=== PATIENT | female | born 1995 | race Caucasian/White ===

== ENCOUNTER 2017-10-21 23:06 | Inpatient (IN) | payer MEDICAID ==
[2017-10-21] MEDS ORDERED: ONDANSETRON HCL INJ/PF 4 MG/2 ML SDV IV ONE (23:12)
--- NOTE | 2017-10-21 23:29 | ER Document Report ---
ED General - General Chief Complaint: High Blood Sugar Stated Complaint: BLOOD SUGAR PROBLEMS Time Seen by Provider: 10/21/17 23:09 Notes: Patient is a 22-year-old female with type 1 diabetes who presents with complaints of feeling bad for 1 week. She has been vomiting. She says she has been taken her insulin as prescribed but she still felt unwell and her sugars have been running very high for the last several days. She has been vomiting for last 48 hours. She has body aches throughout. She has not had fever. She denies any diarrhea. She has no other complaints at this time. She says she takes Lantus 20 units twice a day. She has not had her evening dose of Lantus. She also has a sliding scale. He does have history of abdominal surgery due to familiar adenomatous polyposis. She had a colectomy due to this. She denies any new abdominal complaints. - Related Data Allergies/Adverse Reactions: bupropion [From Wellbutrin] Allergy (Verified 10/22/17 01:37) diphenhydramine [From Benadryl] Allergy (Verified 10/22/17 01:37) ketorolac [From Toradol] Allergy (Verified 10/22/17 01:37) morphine Allergy (Verified 10/22/17 00:55) Penicillins Allergy (Verified 10/22/17 01:37) Past Medical History - Social History Smoking Status: Never Smoker Frequency of alcohol use: None Drug Abuse: None Family History: Reviewed & Not Pertinent Review of Systems - Review of Systems Notes: My Normal Review Basic REVIEW OF SYSTEMS: CONSTITUTIONAL : Denies fever, chills, or sweats. Denies recent illness. EENT: Denies eye, ear, throat, or mouth pain or symptoms. Denies nasal or sinus congestion. CARDIOVASCULAR: Denies chest pain. RESPIRATORY: Denies cough, cold, or chest congestion. Denies shortness of breath, difficulty breathing, or wheezing. GASTROINTESTINAL: Some diffuse mild abdominal pain. Some nausea or vomiting. GENITOURINARY: Denies difficulty urinating, painful urination, burning, frequency, or blood in urine. FEMALE GENITOURINARY: Denies vaginal bleeding, abnormal or irregular periods. MUSCULOSKELETAL: Body aches SKIN: Denies rash or skin lesions. NEUROLOGICAL: Denies altered mental status or loss of consciousness. Denies headache. Denies weakness or paralysis or loss of use of either side. Denies problems with gait or speech. Denies sensory or motor loss. ALL OTHER SYSTEMS REVIEWED AND NEGATIVE. Physical Exam - Vital signs Vitals: Temp Pulse Resp BP Pulse Ox 98.3 F 102 H 14 118/83 99 10/21/17 23:11 10/21/17 23:11 10/21/17 23:11 10/21/17 23:11 10/21/17 23:11 - Notes Notes: General Appearance: Well nourished, alert, cooperative, no acute distress, no obvious discomfort. Well-appearing. Vitals: reviewed, See vital signs table. Head: no swelling or tenderness to the head Eyes: PERRL, EOMI, Conjuctiva clear Mouth: Some decreasd moisture Throat: No tonsillar inflammation, Lungs: No wheezing, No rales, No rhonci, No accessory muscle use, good air exchange bilaterally. Heart: Rapid rate, Regular rythm, No murmur, no rub Abdomen: Normal BS, soft, No rigidity, No abdominal tenderness, No guarding, no rebound, no abdominal masses, no organomegaly Extremities: strength 5/5 in all extremities, good pulses in all extremities, no swelling or tenderness in the extremities, no edema. Skin: warm, dry, appropriate color, no rash Neuro: speech clear, oriented x 3, normal affect, responds appropriately to questions. Course - Re-evaluation Re-evalutation: 10/22/17 01:29 Nursing staff is able to get peripheral IV. I looked with ultrasound patient has no visible peripheral veins I can see on ultrasound on the upper extremities that would allow for an adequate IV cannulation. I talked to patient length and she admits that she has had several central lines because this. She also had IOS in the past. She does not want an IO. I did look at her left internal jugular vein. I did not actually see a internal jugular vein that I felt would be appropriate for cannulation. Patient's right internal jugular vein looked okay. I did attempt to cannulate this. I got good blood flash. On 2 times a try to pass the guidewire. Guidewire would not pass. I suspect the patient probably is a distal stricture from previous multiple central lines. I therefore placed central line in the left femoral vein. This was able to be cannulated on first attempt and guidewire was passed easily. I requested previous medical records from [facility]. 10/22/17 02:47 Patient is hyperglycemia with acidosis but no gap surgery with acidosis. Suggest that she just acutely had a rise in her blood sugar. She is started on insulin drip. She continues to ask for pain medication she has received fentanyl. I do have some concerns about potential opiate abuse due to the fact of her multiple pain medication allergies. Also, I have left her door open. When I walked past the room and looked in without her noticing me she seems very comfortable and is just lying there. When an ocular door and she is wearing coming in she starts shaking and saying that she has lots of pain. This is concerning to me that there may be some secondary gain to this as it seems that her blood sugar is some acute rise which suggests to me that she probably did not take her insulin despite her saying that she did. Also received records from [facility]. In those records it appears that at times she has had similar presentations where she will have a non-gap acidosis associated with hyperglycemia. In 1 of the notes mentions that the patient has been admitted there for proximately 10 times in the last year for DKA. The notes also mentioned that she is very noncompliant with her medications. At this time I do not think any further opiate medications are necessary. I did call and speak with Dr. Jones, hospitalist, about potential admission. He says that he prefers that we will we get a repeat BMP and call back with results to see if her acidosis and sugar improving being that she does not have a gap. She is receiving IV fluids. 10/22/17 05:40 Patient continues to complain of body aches. I ordered Tylenol for her but she refused it when the nurse went to give it to her. I am still waiting results of her repeat BMP. 10/22/17 06:11 Patient's acidosis is getting worked despite her blood sugar improving and her being on insulin drip. Her potassium was also started drop. I will switch over to D5 half-normal saline with 40 of KCl. I have called back and spoke with Dr. Jones who agrees to admit the patient. I reevaluated the patient again. She seems more comfortable now despite the fact that her acidosis is worsening. Informed her that should be done soon to evaluate her in writing admission orders. She is understanding of this and has no further concerns at this time. Dictation of this chart was performed using voice recognition software; therefore, there may be some unintended grammatical errors. 10/22/17 06:12 10/22/17 06:14 - Vital Signs Vital signs: Temp Pulse Resp BP Pulse Ox 98.3 F 102 H 14 111/69 100 10/21/17 23:11 10/21/17 23:11 10/22/17 02:01 10/22/17 02:00 10/22/17 02:01 - Laboratory Result Diagrams: 10/22/17 01:30 10/22/17 05:22 Laboratory results interpreted by me: 10/22/17 10/22/17 10/22/17 01:30 01:30 01:39 Hgb 11.2 L MCH 24.8 L MCHC 30.0 L RDW 20.9 H VBG pH VBG pCO2 VBG HCO3 Sodium 130.5 L Potassium Chloride 109 H Carbon Dioxide 11 L Glucose 800 H* POC Glucose AST 12 L Alkaline Phosphatase 132 H Total Protein 5.5 L Albumin 3.0 L Urine Glucose (UA) >=500 H Urine Ketones 20 H Urine Blood SMALL H 10/22/17 10/22/17 10/22/17 03:15 03:31 04:14 Hgb MCH MCHC RDW VBG pH 7.19 L* VBG pCO2 26.4 L VBG HCO3 9.9 L Sodium Potassium Chloride Carbon Dioxide Glucose POC Glucose 499 H* 398 H AST Alkaline Phosphatase Total Protein Albumin Urine Glucose (UA) Urine Ketones Urine Blood 10/22/17 05:22 Hgb MCH MCHC RDW VBG pH VBG pCO2 VBG HCO3 Sodium Potassium 3.2 L Chloride 117 H Carbon Dioxide 8 L* Glucose 246 H POC Glucose AST Alkaline Phosphatase Total Protein Albumin Urine Glucose (UA) Urine Ketones Urine Blood - EKG Interpretation by Me Additional EKG results interpreted by me: 10/22/17 01:33 EKG is reviewed and interpreted by me. EKG shows sinus tachycardia with rate of [address] segment elevation or depression. No ischemic T-wave inversions. MI interval, QRS duration, QTc intervals are within normal range. No old EKG available for comparison. Procedures - Central Line left femoral vein Consent obtained: Yes Central line pre-insertion: Sterile PPE donned, Chloraprep applied, Sterile drapes applied Central line lumen type: Triple Anesthetic type: 1% Lidocaine mL's of anesthesia: 5 Ultrasound guided: Yes Line secured with sutures: Yes Central line post-insertion: Blood return from lumens, Biopatch applied, Sutured , Sterile dressing applied Complications: No Discharge - Discharge Clinical Impression: DKA (diabetic ketoacidoses) Qualifiers: Diabetes mellitus type: type 1 Diabetes mellitus complication detail: without coma Qualified Code(s): E10.10 - Type 1 diabetes mellitus with ketoacidosis without coma Condition: Stable Disposition: ADMITTED INPATIENT Admitting Provider: Hospitalist Unit Admitted: IMCU Referrals: NAYANA TORRES NP [Primary Care Provider] - Follow up as needed
[2017-10-22 01:38] LABS: ABSOLUTE EOSINOPHILS # (AUTO) 0.1 10^3/uL (0.0-0.6); ABSOLUTE LYMPHOCYTES (AUTO) 1.2 10^3/uL (0.5-4.7); ABSOLUTE MONOCYTES (AUTO) 0.8 10^3/uL (0.1-1.4); BASOPHILS % (AUTO) 0.3 % (0-2); TOTAL CELLS COUNTED % (AUTO) 100 %
[2017-10-22] MEDS ORDERED: FENTANYL CITRATE INJ/PF 100 MCG/2 ML AMPUL IV ONE (01:41)
[2017-10-22 01:42] LABS: MEAN CORPUSCULAR VOLUME 83 fl (80-97)
[2017-10-22] MEDS ORDERED: GLUCAGON,HUMAN RECOMB 1 MG INJ IM PRN (01:43)
[2017-10-22] MEDS ORDERED: DEXTROSE 50%-WATER 25 GM/50 ML DISP.SYRIN IV PRN ×4 (01:43→06:35)
[2017-10-22] MEDS ORDERED: NORMAL SALINE 100 ML with INSULIN REGULAR, HUMAN 100 UNIT IV PRN ×4 (01:43→06:44)
[2017-10-22] MEDS ORDERED: DEXTROSE 40% GEL 15 GM TUBE PO PRN ×4 (01:43→06:35)
[2017-10-22] MEDS: NORMAL SALINE 1000 ML 1,000 ML IV PRN ×5 (01:49→22:13)
[2017-10-22 01:58] LABS: APPEARANCE,URINE CLEAR; BILIRUBIN,URINE NEGATIVE (NEGATIVE); COLOR,URINE COLORLESS; GLUCOSE, URINE >=500 mg/dL (NEGATIVE); KETONES,URINE 20 mg/dL (NEGATIVE); LEUKOCYTE ESTERASE,URINE NEGATIVE (NEGATIVE); NITRITE,URINE NEGATIVE (NEGATIVE); PROTEIN,URINE NEGATIVE (NEGATIVE); URINE SPECIFIC GRAVITY 1.028; UROBILINOGEN,URINE NEGATIVE mg/dL (<2.0)
[2017-10-22 01:58] LABS: HEMATOCRIT 37.3 % (36.0-47.0); HEMOGLOBIN 11.2 g/dL (12.0-15.5); WHITE BLOOD COUNT 9.3 10^3/uL (4.0-10.5)
[2017-10-22 01:59] LABS: ABSOLUTE NEUT (AUTO) 7.2 10^3/uL (1.7-8.2); EOSINOPHILS % (AUTO) 0.7 % (0-6); LYMPHOCYTES % (AUTO) 13.3 % (13-45); MEAN CORPUSCULAR HEMOGLOBIN 24.8 pg (27.0-33.4); MONOCYTES % (AUTO) 8.7 % (3-13); PLATELET COUNT 301 10^3/uL (150-450); RED CELL DISTRIBUTION WIDTH 20.9 % (11.5-14.0)
[2017-10-22 02:03] LABS: ALANINE AMINOTRANSFERASE 26 U/L (9-52); ALKALINE PHOSPHATASE 132 U/L (38-126); ANION GAP 11 (5-19); ASPARTATE AMINO TRANSFERASE 12 U/L (14-36); BILIRUBIN,DIRECT 0.3 mg/dL (0.0-0.4); BILIRUBIN,TOTAL 0.3 mg/dL (0.2-1.3); BLOOD UREA NITROGEN 10 mg/dL (7-20); CALCIUM 9.2 mg/dL (8.4-10.2); CARBON DIOXIDE 11 mmol/L (22-30); CHLORIDE 109 mmol/L (98-107); POTASSIUM 4.1 mmol/L (3.6-5.0); SODIUM 130.5 mmol/L (137-145); TOTAL PROTEIN 5.5 g/dL (6.3-8.2)
[2017-10-22] MEDS ORDERED: INSULIN REG, HUMAN 100 UNIT/ML 3 ML VIAL (PYX) ONE (02:31)
[2017-10-22 02:33] LABS: GLUCOSE 800 mg/dL (75-110)
[2017-10-22 03:38] LABS: VENOUS BLOOD BASE EXCESS -16.8 mmol/L; VENOUS BLOOD HCO3 9.9 mmol/L (20-32); VENOUS BLOOD PCO2 26.4 mmHg (35-63)
[2017-10-22 03:40] LABS: VENOUS BLOOD PH 7.19 (7.30-7.42)
[2017-10-22] MEDS ORDERED: RINGERS SOLUTION,LACTATED 1,000 ML IV ONE (04:44)
[2017-10-22] MEDS ORDERED: ACETAMINOPHEN 325 MG TABLET PO ONE (05:03)
[2017-10-22] MEDS ORDERED: ONDANSETRON HCL INJ/PF 4 MG/2 ML SDV IV ONE (05:40)
[2017-10-22 05:51] LABS: ANION GAP 17 (5-19); BLOOD UREA NITROGEN 7 mg/dL (7-20); CALCIUM 8.8 mg/dL (8.4-10.2); CHLORIDE 117 mmol/L (98-107); GLUCOSE 246 mg/dL (75-110); POTASSIUM 3.2 mmol/L (3.6-5.0); SODIUM 142.2 mmol/L (137-145)
[2017-10-22 06:03] LABS: CARBON DIOXIDE 8 mmol/L (22-30)
[2017-10-22] MEDS ORDERED: POTASSI CL 40 MEQ/D5-1/2NS 1L 40 MEQ/1,000 ML RTUINJ IV ONE (06:10)
[2017-10-22] MEDS ORDERED: POTASSIUM CHLORIDE 10 MEQ TABLET.SA PO ONE (06:17)
[2017-10-22] MEDS ORDERED: ACETAMINOPHEN 325 MG TABLET PO PRN (06:35)
[2017-10-22] MEDS ORDERED: GLUCAGON,HUMAN RECOMB 1 MG INJ SUBCUT PRN (06:35)
[2017-10-22] MEDS ORDERED: MAGNESIUM HYDROXIDE SUSP 30 ML UDCUP PO PRN (06:35)
[2017-10-22] MEDS ORDERED: POTASSI CL 20 MEQ/D5-1/2NS 1L 1,000 ML IV PRN (06:35)
[2017-10-22 07:30] LABS: PHOSPHORUS 1.6 mg/dL (2.5-4.5)
[2017-10-22 07:45] LABS: URINE AMPHETAMINES SCREEN NEGATIVE; URINE BARBITURATES SCREEN NEGATIVE; URINE BENZODIAZEPINES SCREEN NEGATIVE; URINE COCAINE SCREEN NEGATIVE; URINE MARIJUANA (THC) SCREEN NEGATIVE; URINE METHADONE SCREEN NEGATIVE; URINE PHENCYCLIDINE SCREEN NEGATIVE
--- NOTE | 2017-10-22 07:57 | PDOC H&P ---
History of Present Illness Admission Date/PCP: 10/22/17 06:22 NAYANA TORRES NP Patient complains of: Polyuria, polydipsia abdominal pain nausea History of Present Illness: RUMA HUITRON is a 22 year old female with a past medical history of type 1 diabetes, bipolar disorder, noncompliance and recurrent hospitalizations for DKA. Patient states recently discharged from [facility] following recovery from DKA, stating nausea has prevented p.o. intake and despite hyperglycemia has not taken insulin. In the emergency room she is found to have hyperglycemia of 800 and bicarb of 8. She started on IV insulin and fluids refer to the hospitalist for admission. Patient is known to the ER provider for the above. Patient has an angry affect. Past Medical History Cardiac Medical History: Reports: None Pulmonary Medical History: Reports: None EENT Medical History: Reports: None Endocrine Medical History: Reports: Diabetes Mellitus Type 1 Renal/ Medical History: Reports: None Malignancy Medical History: Reports: None GI Medical History: Reports: None Musculoskeltal Medical History: Reports: None Skin Medical History: Reports: None Psychiatric Medical History: Reports: Bipolar Disorder Traumatic Medical History: Reports: None Hematology: Reports: None Infectious Medical History: Reports: None Past Surgical History Past Surgical History: Reports: None Social History Information Source: Patient Lives with: Family Smoking Status: Never Smoker Frequency of Alcohol Use: None Hx Recreational Drug Use: No Drugs: None - Advance Directive Resuscitation Status: Full Code Family History Family History: Hypertension Parental Family History Reviewed: Yes Children Family History Reviewed: Yes Sibling(s) Family History Reviewed.: Yes Medication/Allergy Allergies/Adverse Reactions: bupropion [From Wellbutrin] Allergy (Verified 10/22/17 01:37) diphenhydramine [From Benadryl] Allergy (Verified 10/22/17 01:37) ketorolac [From Toradol] Allergy (Verified 10/22/17 01:37) morphine Allergy (Verified 10/22/17 00:55) Penicillins Allergy (Verified 10/22/17 01:37) Review of Systems Constitutional: ABSENT: chills, fever(s), headache(s), weight gain, weight loss Eyes: ABSENT: visual disturbances Ears: ABSENT: hearing changes Cardiovascular: ABSENT: chest pain, dyspnea on exertion, edema, orthropnea, palpitations Respiratory: ABSENT: cough, hemoptysis Gastrointestinal: ABSENT: abdominal pain, constipation, diarrhea, hematemesis, hematochezia, nausea, vomiting Genitourinary: ABSENT: dysuria, hematuria Musculoskeletal: ABSENT: joint swelling Integumentary: ABSENT: rash, wounds Neurological: ABSENT: abnormal gait, abnormal speech, confusion, dizziness, focal weakness, syncope Psychiatric: ABSENT: anxiety, depression, homidical ideation, suicidal ideation Endocrine: ABSENT: cold intolerance, heat intolerance, polydipsia, polyuria Hematologic/Lymphatic: ABSENT: easy bleeding, easy bruising Physical Exam Vital Signs: Temp Pulse Resp BP Pulse Ox 98.3 F 102 H 14 111/69 100 10/22/17 07:15 10/21/17 23:11 10/22/17 02:01 10/22/17 02:00 10/22/17 02:01 General appearance: PRESENT: cooperative, disheveled, mild distress Head exam: PRESENT: atraumatic, normocephalic Eye exam: PRESENT: conjunctiva pink, EOMI, PERRLA. ABSENT: scleral icterus Ear exam: PRESENT: normal external ear exam Mouth exam: PRESENT: dry mucosa. ABSENT: laceration, moist, neck supple Neck exam: ABSENT: carotid bruit, JVD, lymphadenopathy, thyromegaly Respiratory exam: PRESENT: clear to auscultation lam, tachypnea. ABSENT: rales , rhonchi, wheezes Cardiovascular exam: PRESENT: RRR. ABSENT: diastolic murmur, rubs, systolic murmur Pulses: PRESENT: normal dorsalis pedis pul Vascular exam: PRESENT: normal capillary refill GI/Abdominal exam: PRESENT: hyperactive bowel sounds, normal bowel sounds, soft , tenderness. ABSENT: distended, guarding, mass, organolmegaly, rebound Rectal exam: PRESENT: deferred Extremities exam: PRESENT: full ROM. ABSENT: calf tenderness, clubbing, pedal edema Neurological exam: PRESENT: alert, awake, oriented to person, oriented to place , oriented to time, oriented to situation, CN II-XII grossly intact. ABSENT: motor sensory deficit Psychiatric exam: PRESENT: flat affect, other - Angry Skin exam: PRESENT: dry, intact, warm. ABSENT: cyanosis, rash Assessment & Plan - Diagnosis (1) DKA (diabetic ketoacidoses) Qualifiers: Diabetes mellitus type: type 1 Diabetes mellitus complication detail: without coma Qualified Code(s): E10.10 - Type 1 diabetes mellitus with ketoacidosis without coma Is this a current diagnosis for this admission?: Yes Plan: DKA (2) Bipolar 1 disorder Is this a current diagnosis for this admission?: Yes Plan: Abilify (3) Abdominal pain Is this a current diagnosis for this admission?: Yes Plan: Correction of #1 avoid narcotics. Evaluate lipase. - Time Time Spent: 50 to 70 Minutes
[2017-10-22 08:03] LABS: LIPASE 5946.2 U/L (23-300)
[2017-10-22] MEDS: PROMETHAZINE HCL 25 MG TABLET PO PRN ×2 (08:45→16:12)
[2017-10-22] MEDS ORDERED: INSULIN GLARGINE,HUM.REC.ANLOG 300 UNIT/3 ML INSULN.PEN SUBCUT SCH (08:53)
--- NOTE | 2017-10-22 09:51 | EKG REPORT ---
SEVERITY:- BORDERLINE ECG - SINUS TACHYCARDIA BORDERLINE T WAVE ABNORMALITIES : Confirmed by: David Thomas MD 22-Oct-2017 09:49:59
[2017-10-22] MEDS ORDERED: ARIPIPRAZOLE 5 MG TABLET PO SCH ×2 (10:00→22:00)
[2017-10-22] MEDS: DOCUSATE SODIUM 100 MG CAPSULE PO SCH ×2 (10:40→16:16)
[2017-10-22] MEDS: ARIPIPRAZOLE 5 MG TABLET PO SCH (10:41)
[2017-10-22] MEDS: FENTANYL CITRATE INJ/PF 100 MCG/2 ML AMPUL IV PRN ×2 (10:41→19:01)
[2017-10-22] MEDS: FAMOTIDINE 20 MG TABLET PO SCH ×2 (10:41→22:12)
[2017-10-22 11:04] LABS: ANION GAP 6 (5-19); BLOOD UREA NITROGEN 6 mg/dL (7-20); CALCIUM 8.7 mg/dL (8.4-10.2); CARBON DIOXIDE 16 mmol/L (22-30); CHLORIDE 119 mmol/L (98-107); GLUCOSE 83 mg/dL (75-110); POTASSIUM 3.2 mmol/L (3.6-5.0); SODIUM 141.2 mmol/L (137-145)
[2017-10-22] MEDS: POTASSI CL 20 MEQ/50 ML RIDER 20 MEQ/50 ML RTUPB IV SCH ×2 (12:43→16:00)
[2017-10-22] MEDS: INSULIN LISPRO 100 UNIT/ML 3 ML VIAL SUBCUT PRN (13:28)
[2017-10-22 14:33] LABS: ANION GAP 8 (5-19); BLOOD UREA NITROGEN 6 mg/dL (7-20); CALCIUM 8.5 mg/dL (8.4-10.2); CARBON DIOXIDE 16 mmol/L (22-30); CHLORIDE 116 mmol/L (98-107); GLUCOSE 155 mg/dL (75-110); POTASSIUM 3.4 mmol/L (3.6-5.0); SODIUM 139.8 mmol/L (137-145)
--- NOTE | 2017-10-22 15:11 | PDOC PROGRESS REPORT ---
Subjective Progress Note for:: 10/22/17 Subjective:: Patient is a 31-year-old female with a past medical history of type 1 diabetes, bipolar disorder, and noncompliance and recurrent hospitalizations for DKA who was admitted early this morning for DKA and pancreatitis. The patient is seen on morning rounds. She is found resting in bed comfortably on room air. She is still in the emergency department at this time. She reports continued abdominal pain that radiates bilaterally around to her back that is worsened with p.o. intake. She denies nausea or vomiting. Denies chest pain, palpitations, dyspnea, diarrhea, urinary tract infection symptoms. She has no other questions or concerns at this time. Reason For Visit: DKA NON COMPLIANCE BIPOLAR Physical Exam Vital Signs: Temp Pulse Resp BP Pulse Ox 98.3 F 102 H 17 92/57 L 97 10/22/17 07:15 10/21/17 23:11 10/22/17 12:14 10/22/17 12:14 10/22/17 12:14 General appearance: PRESENT: no acute distress, cooperative, disheveled, well- developed, well-nourished Head exam: PRESENT: atraumatic, normocephalic Eye exam: PRESENT: conjunctiva pink, EOMI, PERRLA. ABSENT: scleral icterus Ear exam: PRESENT: normal external ear exam Mouth exam: PRESENT: moist, tongue midline Neck exam: ABSENT: carotid bruit, JVD, lymphadenopathy, thyromegaly Respiratory exam: PRESENT: clear to auscultation lam, symmetrical, unlabored. ABSENT: rales, rhonchi, wheezes Cardiovascular exam: PRESENT: RRR, +S1, +S2, tachycardia. ABSENT: diastolic murmur, rubs, systolic murmur Pulses: PRESENT: normal dorsalis pedis pul Vascular exam: PRESENT: normal capillary refill GI/Abdominal exam: PRESENT: normal bowel sounds, soft, tenderness. ABSENT: distended, guarding, mass, organolmegaly, rebound Rectal exam: PRESENT: deferred Extremities exam: PRESENT: full ROM. ABSENT: calf tenderness, clubbing, pedal edema Neurological exam: PRESENT: alert, awake, oriented to person, oriented to place , oriented to time, oriented to situation, CN II-XII grossly intact. ABSENT: motor sensory deficit Psychiatric exam: PRESENT: appropriate affect, normal mood. ABSENT: homicidal ideation, suicidal ideation Skin exam: PRESENT: dry, intact, warm. ABSENT: cyanosis, rash Results Laboratory Results: 10/22/17 14:02 10/22/17 10/22/17 10:23 14:02 Sodium 141.2 139.8 Potassium 3.2 L 3.4 L Chloride 119 H 116 H Carbon Dioxide 16 L 16 L Anion Gap 6 8 BUN 6 L 6 L Creatinine 0.50 L 0.49 L Est GFR ( Amer) > 60 > 60 Est GFR (Non-Af Amer) > 60 > 60 Glucose 83 155 H Calcium 8.7 8.5 Assessment & Plan - Diagnosis (1) DKA (diabetic ketoacidoses) Qualifiers: Diabetes mellitus type: type 1 Diabetes mellitus complication detail: without coma Qualified Code(s): E10.10 - Type 1 diabetes mellitus with ketoacidosis without coma Is this a current diagnosis for this admission?: Yes Plan: The patient is admitted to [facility] on continuous cardiac telemetry. She was initially treated with aggressive IV fluids and an insulin drip. Her anion gap has trended down from 17-8. She has been provided subcutaneous Lantus , insulin drip has been discontinued, and she was monitored with hourly Accu- Cheks for an additional 4 hours. Her blood sugar has remained below 158; therefore will change to Accu-Cheks every 6 hours. We will continue Humalog for sliding scale coverage. We will continue aggressive IV fluids. The visual educator and registered dietitian have been consulted. (2) Pancreatitis Qualifiers: Chronicity: acute Is this a current diagnosis for this admission?: Yes Plan: Lipase is elevated to 5946. We will obtain an abdominal ultrasound. Will evaluate lipid panel. The patient is currently n.p.o. Continuing to receive IV fluids. Being managed with IV fentanyl. (3) Bipolar 1 disorder Is this a current diagnosis for this admission?: Yes Plan: Continue home medications. (4) Hypokalemia Is this a current diagnosis for this admission?: Yes Plan: Replaced; will continue to monitor with daily chemistries. (5) Anemia Is this a current diagnosis for this admission?: Yes Plan: Mild anemia noted with a hemoglobin of 11.2. There are no previous studies to compare this to. No evidence of active or ongoing bleeding. We will continue to monitor; anticipate there will be a drop in hemoglobin related to hemodilution. - Time Time Spent with patient: 15-24 minutes Medications reviewed and adjusted accordingly: Yes Anticipated discharge: Home - Inpatient Certification Based on my medical assessment, after consideration of the patient's comorbidities, presenting symptoms, or acuity I expect that the services needed warrant INPATIENT care.: Yes I certify that my determination is in accordance with my understanding of Medicare's requirements for reasonable and necessary INPATIENT services [42 CFR 412.3e].: Yes Medical Necessity: Need For IV Fluids
[2017-10-22 15:27] LABS: CHOLESTEROL 161.75 mg/dL (0-200); TRIGLYCERIDES 212 mg/dL (<150)
[2017-10-22 15:37] LABS: DIRECT LDL 70 mg/dL (<100)
[2017-10-22 15:38] LABS: VLDL CHOLESTEROL 42.4 mg/dL (10-31)
[2017-10-22] MEDS: HEPARIN SOD (PORCINE) 5,000 UNIT/ML 1 ML SYRINGE SUBCUT SCH ×2 (16:15→22:04)
[2017-10-22] MEDS ORDERED: FAMOTIDINE INJ/PF 20 MG/2 ML SDV IV ONE (17:30)
--- NOTE | 2017-10-22 17:49 | RADIOLOGY REPORT (SQ) ---
EXAM DESCRIPTION: U/S ABDOMEN LIMITED W/O DOP COMPLETED DATE/TIME: 10/22/2017 5:26 pm REASON FOR STUDY: pancreatitis COMPARISON: None. TECHNIQUE: Dynamic and static grayscale images acquired of the abdomen and recorded on PACS. Additio nal selected color Doppler and spectral images recorded. LIMITATIONS: Large patient, midline bowel gas FINDINGS: PANCREAS: Not well seen LIVER: Normal size. Echogenic, difficult to penetrate with the ultrasound energy from fatty infiltra tion LIVER VASCULATURE: Normal directional flow of the main portal vein and hepatic veins. GALLBLADDER: No stones. Normal wall thickness. No pericholecystic fluid. ULTRASOUND-DETECTED OCASIO'S SIGN: Negative. INTRAHEPATIC DUCTS AND COMMON DUCT: CBD and intrahepatic ducts normal caliber. No filling defects. INFERIOR VENA CAVA: Normal flow. AORTA: No aneurysm. RIGHT KIDNEY: Normal size. Normal echogenicity. No solid or suspicious masses. No hydronephrosis. No calcifications. PERITONEAL AND RIGHT PLEURAL SPACE: No ascites or effusions. OTHER: No other significant findings. IMPRESSION: Fatty liver. No gallstones TECHNICAL DOCUMENTATION: JOB ID: [id number] [employer]- All Rights Reserved Reading location - IP/workstation name: [email or web address]
[2017-10-22] MEDS: MAG HYDROX/AL HYDROX/SIMETH SUSP 30 ML UDCUP PO PRN ×2 (17:51→23:34)
[2017-10-22 19:35] LABS: ANION GAP 8 (5-19); BLOOD UREA NITROGEN 5 mg/dL (7-20); CALCIUM 7.6 mg/dL (8.4-10.2); CARBON DIOXIDE 14 mmol/L (22-30); CHLORIDE 117 mmol/L (98-107); GLUCOSE 152 mg/dL (75-110); POTASSIUM 3.4 mmol/L (3.6-5.0); SODIUM 139.2 mmol/L (137-145)
[2017-10-23] MEDS: PROMETHAZINE HCL 25 MG TABLET PO PRN ×2 (01:00→11:15)
[2017-10-23] MEDS: INSULIN LISPRO 100 UNIT/ML 3 ML VIAL SUBCUT PRN ×4 (01:00→22:39)
[2017-10-23 01:57] LABS: ANION GAP 9 (5-19); BLOOD UREA NITROGEN 3 mg/dL (7-20); CALCIUM 7.7 mg/dL (8.4-10.2); CARBON DIOXIDE 15 mmol/L (22-30); CHLORIDE 114 mmol/L (98-107); GLUCOSE 301 mg/dL (75-110); POTASSIUM 3.4 mmol/L (3.6-5.0); SODIUM 137.6 mmol/L (137-145)
[2017-10-23] MEDS: FENTANYL CITRATE INJ/PF 100 MCG/2 ML AMPUL IV PRN (03:02)
[2017-10-23 06:07] LABS: ABSOLUTE EOSINOPHILS # (AUTO) 0.1 10^3/uL (0.0-0.6); ABSOLUTE LYMPHOCYTES (AUTO) 1.6 10^3/uL (0.5-4.7); ABSOLUTE MONOCYTES (AUTO) 0.5 10^3/uL (0.1-1.4); ABSOLUTE NEUT (AUTO) 3.4 10^3/uL (1.7-8.2); BASOPHILS % (AUTO) 0.5 % (0-2); EOSINOPHILS % (AUTO) 2.4 % (0-6); HEMATOCRIT 29.7 % (36.0-47.0); HEMOGLOBIN 9.5 g/dL (12.0-15.5); LYMPHOCYTES % (AUTO) 28.1 % (13-45); MEAN CORPUSCULAR HEMOGLOBIN 24.8 pg (27.0-33.4); MEAN CORPUSCULAR HGB CONC 31.9 g/dL (32.0-36.0); MONOCYTES % (AUTO) 8.8 % (3-13); PLATELET COUNT 301 10^3/uL (150-450); RED BLOOD COUNT 3.82 10^6/uL (3.72-5.28); SEGMENTED NEUTROPHILS % (AUTO) 60.2 % (42-78); TOTAL CELLS COUNTED % (AUTO) 100 %; WHITE BLOOD COUNT 5.7 10^3/uL (4.0-10.5)
[2017-10-23 06:10] LABS: MEAN CORPUSCULAR VOLUME 78 fl (80-97)
[2017-10-23 06:26] LABS: ALANINE AMINOTRANSFERASE 19 U/L (9-52); ALBUMIN 2.3 g/dL (3.5-5.0); ALKALINE PHOSPHATASE 125 U/L (38-126); ANION GAP 7 (5-19); ASPARTATE AMINO TRANSFERASE 11 U/L (14-36); BLOOD UREA NITROGEN 3 mg/dL (7-20); CALCIUM 7.9 mg/dL (8.4-10.2); CARBON DIOXIDE 17 mmol/L (22-30); CHLORIDE 115 mmol/L (98-107); GLUCOSE 133 mg/dL (75-110); POTASSIUM 3.1 mmol/L (3.6-5.0); SODIUM 139.2 mmol/L (137-145); TOTAL PROTEIN 4.5 g/dL (6.3-8.2)
[2017-10-23 06:39] LABS: BILIRUBIN,TOTAL < 0.1 mg/dL (0.2-1.3)
[2017-10-23] MEDS: NORMAL SALINE 1000 ML 1,000 ML IV PRN ×2 (06:54→11:17)
[2017-10-23] MEDS: HEPARIN SOD (PORCINE) 5,000 UNIT/ML 1 ML SYRINGE SUBCUT SCH ×3 (06:55→22:12)
[2017-10-23] MEDS: DOCUSATE SODIUM 100 MG CAPSULE PO SCH ×2 (11:00→16:27)
--- NOTE | 2017-10-23 11:02 | PDOC PROGRESS REPORT ---
Subjective Progress Note for:: 10/23/17 Subjective:: Patient is a 31-year-old female with a past medical history of type 1 diabetes, bipolar disorder, and noncompliance and recurrent hospitalizations for DKA who was admitted early this morning for DKA and pancreatitis. The patient is seen on morning rounds. She is found resting in bed comfortably on room air. She states that she is feeling much better and does request to eat this morning. Reports slight nausea and continued intermittent abdominal pain. However, she reports that both of these are improved from yesterday. She denies fever, chills, chest pain, palpitation, shortness of breath, emesis, and diarrhea. She has no other questions or concerns at this time. Reason For Visit: DKA NON COMPLIANCE BIPOLAR Physical Exam Vital Signs: Temp Pulse Resp BP Pulse Ox 98.5 F 109 H 12 110/65 98 10/23/17 07:58 10/23/17 07:58 10/23/17 07:58 10/23/17 07:58 10/23/17 07:58 Intake & Output 10/22/17 10/23/17 10/24/17 06:59 06:59 06:59 Intake Total 2800 Balance 2800 Weight 63.7 kg General appearance: PRESENT: no acute distress, well-developed, well-nourished Head exam: PRESENT: atraumatic, normocephalic Eye exam: PRESENT: conjunctiva pink, EOMI, PERRLA. ABSENT: scleral icterus Ear exam: PRESENT: normal external ear exam Mouth exam: PRESENT: moist, tongue midline Neck exam: ABSENT: carotid bruit, JVD, lymphadenopathy, thyromegaly Respiratory exam: PRESENT: clear to auscultation lam, symmetrical, unlabored. ABSENT: rales, rhonchi, wheezes Cardiovascular exam: PRESENT: RRR, +S1, +S2, tachycardia. ABSENT: diastolic murmur, rubs, systolic murmur Pulses: PRESENT: normal dorsalis pedis pul Vascular exam: PRESENT: normal capillary refill GI/Abdominal exam: PRESENT: normal bowel sounds, soft, tenderness. ABSENT: distended, guarding, mass, organolmegaly, rebound Rectal exam: PRESENT: deferred Extremities exam: PRESENT: full ROM. ABSENT: calf tenderness, clubbing, pedal edema Neurological exam: PRESENT: alert, awake, oriented to person, oriented to place , oriented to time, oriented to situation, CN II-XII grossly intact. ABSENT: motor sensory deficit Psychiatric exam: PRESENT: anxious, appropriate affect, normal mood. ABSENT: homicidal ideation, suicidal ideation Skin exam: PRESENT: dry, intact, warm. ABSENT: cyanosis, rash Results Laboratory Results: 10/23/17 05:15 10/23/17 05:15 10/22/17 10/22/17 10/22/17 10:23 14:02 14:02 WBC RBC Hgb Hct MCV MCH MCHC RDW Plt Count Seg Neutrophils % Lymphocytes % Monocytes % Eosinophils % Basophils % Absolute Neutrophils Absolute Lymphocytes Absolute Monocytes Absolute Eosinophils Absolute Basophils Sodium 141.2 139.8 Potassium 3.2 L 3.4 L Chloride 119 H 116 H Carbon Dioxide 16 L 16 L Anion Gap 6 8 BUN 6 L 6 L Creatinine 0.50 L 0.49 L Est GFR ( Amer) > 60 > 60 Est GFR (Non-Af Amer) > 60 > 60 Glucose 83 155 H Calcium 8.7 8.5 Total Bilirubin AST ALT Alkaline Phosphatase Total Protein Albumin Triglycerides 212 H Cholesterol 161.75 LDL Cholesterol Direct 70 VLDL Cholesterol 42.4 H HDL Cholesterol 65 10/22/17 10/23/17 10/23/17 19:02 00:15 05:15 WBC 5.7 RBC 3.82 Hgb 9.5 L Hct 29.7 L MCV 78 L D MCH 24.8 L MCHC 31.9 L RDW 21.0 H Plt Count 301 Seg Neutrophils % 60.2 Lymphocytes % 28.1 Monocytes % 8.8 Eosinophils % 2.4 Basophils % 0.5 Absolute Neutrophils 3.4 Absolute Lymphocytes 1.6 Absolute Monocytes 0.5 Absolute Eosinophils 0.1 Absolute Basophils 0.0 Sodium 139.2 137.6 Potassium 3.4 L 3.4 L Chloride 117 H 114 H Carbon Dioxide 14 L 15 L Anion Gap 8 9 BUN 5 L 3 L Creatinine 0.46 L 0.46 L Est GFR ( Amer) > 60 > 60 Est GFR (Non-Af Amer) > 60 > 60 Glucose 152 H 301 H Calcium 7.6 L 7.7 L Total Bilirubin AST ALT Alkaline Phosphatase Total Protein Albumin Triglycerides Cholesterol LDL Cholesterol Direct VLDL Cholesterol HDL Cholesterol 10/23/17 05:15 WBC RBC Hgb Hct MCV MCH MCHC RDW Plt Count Seg Neutrophils % Lymphocytes % Monocytes % Eosinophils % Basophils % Absolute Neutrophils Absolute Lymphocytes Absolute Monocytes Absolute Eosinophils Absolute Basophils Sodium 139.2 Potassium 3.1 L Chloride 115 H Carbon Dioxide 17 L Anion Gap 7 BUN 3 L Creatinine 0.42 L Est GFR ( Amer) > 60 Est GFR (Non-Af Amer) > 60 Glucose 133 H Calcium 7.9 L Total Bilirubin < 0.1 L AST 11 L ALT 19 Alkaline Phosphatase 125 Total Protein 4.5 L Albumin 2.3 L Triglycerides Cholesterol LDL Cholesterol Direct VLDL Cholesterol HDL Cholesterol Impressions: Abdomen Ultrasound 10/22/17 00:00 IMPRESSION: Fatty liver. No gallstones Assessment & Plan - Diagnosis (1) DKA (diabetic ketoacidoses) Qualifiers: Diabetes mellitus type: type 1 Diabetes mellitus complication detail: without coma Qualified Code(s): E10.10 - Type 1 diabetes mellitus with ketoacidosis without coma Is this a current diagnosis for this admission?: Yes Plan: The patient is admitted to [facility] on continuous cardiac telemetry. She was initially treated with aggressive IV fluids and an insulin drip. Her anion gap has trended down from 17-8. She is being advanced to a clear liquid diet; advance as tolerated to a consistent carb diet. Therefore, will increase Levemir to 10 units twice daily (medication reconciliation shows Levemir 26 units twice daily; some concern to accuracy and compliance). We will continue Accu-Cheks before meals and at bedtime with Humalog for sliding scale coverage. The casino beverage server and registered dietitian have been consulted. (2) Pancreatitis Qualifiers: Chronicity: acute Is this a current diagnosis for this admission?: Yes Plan: Lipase is elevated to 5946. Abdominal ultrasound revealed fatty liver, no gallstones. Triglycerides are elevated to 212 LDL 70, HDL 65. Patient is being placed on a clear liquid diet, patient request. Will advance as tolerated. Patient is advised that if she develops worsening pain or emesis , will have to resume n.p.o. status. We will continue IV fluids. Oxycodone for pain, Phenergan for antiemetic. (3) Bipolar 1 disorder Is this a current diagnosis for this admission?: Yes Plan: Continue home medications. (4) Hypokalemia Is this a current diagnosis for this admission?: Yes Plan: K riders today, anticipate that hypokalemia will improve now that the patient is eating. Will continue to monitor with daily chemistries replace as necessary. (5) Hypocalcemia Is this a current diagnosis for this admission?: Yes Plan: Trending upwards. Corrected calcium is 9.26. (6) Anemia Is this a current diagnosis for this admission?: Yes Plan: Mild anemia noted with a admission hemoglobin of 11.2, now 9.5 secondary to hemodilution. No evidence of active or ongoing bleeding. We will continue to monitor. - Time Time Spent with patient: 25-34 minutes Medications reviewed and adjusted accordingly: Yes Anticipated discharge: Home Within: within 24 hours
[2017-10-23] MEDS: FLUOXETINE HCL 20 MG CAPSULE PO SCH (11:15)
[2017-10-23] MEDS: POTASSI CL 20 MEQ/50 ML RIDER 20 MEQ/50 ML RTUPB IV SCH ×2 (11:15→13:56)
[2017-10-23] MEDS: ARIPIPRAZOLE 5 MG TABLET PO SCH (11:15)
[2017-10-23] MEDS: FAMOTIDINE 20 MG TABLET PO SCH ×2 (11:16→22:40)
[2017-10-23] MEDS: OXYCODONE HCL IR 5 MG TABLET PO PRN ×3 (11:16→23:42)
[2017-10-23] MEDS ORDERED: INSULIN GLARGINE,HUM.REC.ANLOG 300 UNIT/3 ML INSULN.PEN SUBCUT ONE (11:45)
[2017-10-23] MEDS: GABAPENTIN 300 MG CAPSULE PO SCH ×2 (13:56→22:40)
[2017-10-23] MEDS: MAG HYDROX/AL HYDROX/SIMETH SUSP 30 ML UDCUP PO PRN (16:23)
[2017-10-23 19:58] LABS: ANION GAP 8 (5-19); BLOOD UREA NITROGEN 2 mg/dL (7-20); CALCIUM 7.7 mg/dL (8.4-10.2); CARBON DIOXIDE 17 mmol/L (22-30); CHLORIDE 113 mmol/L (98-107); GLUCOSE 209 mg/dL (75-110); POTASSIUM 3.6 mmol/L (3.6-5.0); SODIUM 137.9 mmol/L (137-145)
[2017-10-23] MEDS ORDERED: POTASSI CL 20 MEQ/1/2NS 1L 20 MEQ/1,000 ML RTUINJ IV PRN (20:37)
[2017-10-23] MEDS: INSULIN GLARGINE,HUM.REC.ANLOG 300 UNIT/3 ML INSULN.PEN SUBCUT SCH (22:40)
[2017-10-24] MEDS: MAG HYDROX/AL HYDROX/SIMETH SUSP 30 ML UDCUP PO PRN (03:40)
[2017-10-24] MEDS: GABAPENTIN 300 MG CAPSULE PO SCH ×3 (06:29→21:54)
[2017-10-24] MEDS: HEPARIN SOD (PORCINE) 5,000 UNIT/ML 1 ML SYRINGE SUBCUT SCH ×3 (06:33→21:57)
[2017-10-24] MEDS: INSULIN LISPRO 100 UNIT/ML 3 ML VIAL SUBCUT PRN ×4 (07:45→21:53)
[2017-10-24 08:50] LABS: HEMATOCRIT 26.1 % (36.0-47.0); HEMOGLOBIN 8.1 g/dL (12.0-15.5); MEAN CORPUSCULAR HEMOGLOBIN 25.1 pg (27.0-33.4); MEAN CORPUSCULAR HGB CONC 31.1 g/dL (32.0-36.0); MEAN CORPUSCULAR VOLUME 81 fl (80-97); PLATELET COUNT 295 10^3/uL (150-450); RED BLOOD COUNT 3.23 10^6/uL (3.72-5.28); RED CELL DISTRIBUTION WIDTH 21.5 % (11.5-14.0); WHITE BLOOD COUNT 4.4 10^3/uL (4.0-10.5)
[2017-10-24 09:11] LABS: ANION GAP 5 (5-19); BLOOD UREA NITROGEN 2 mg/dL (7-20); CARBON DIOXIDE 17 mmol/L (22-30); CHLORIDE 117 mmol/L (98-107); GLUCOSE 211 mg/dL (75-110); POTASSIUM 3.2 mmol/L (3.6-5.0); SODIUM 138.7 mmol/L (137-145)
[2017-10-24 09:21] LABS: CALCIUM 6.7 mg/dL (8.4-10.2)
[2017-10-24] MEDS: FLUOXETINE HCL 20 MG CAPSULE PO SCH (10:37)
[2017-10-24] MEDS: FAMOTIDINE 20 MG TABLET PO SCH ×2 (10:37→21:54)
[2017-10-24] MEDS: INSULIN GLARGINE,HUM.REC.ANLOG 300 UNIT/3 ML INSULN.PEN SUBCUT SCH ×2 (10:37→22:00)
[2017-10-24] MEDS: ARIPIPRAZOLE 5 MG TABLET PO SCH (10:37)
[2017-10-24] MEDS: DOCUSATE SODIUM 100 MG CAPSULE PO SCH ×2 (10:38→17:42)
[2017-10-24] MEDS: CALCIUM CARBONATE 250 MG/VITAMIN D3 125 UNIT TABLET PO SCH (10:38)
[2017-10-24] MEDS: POTASSIUM CHLORIDE 10 MEQ TABLET.SA PO SCH ×2 (10:38→14:04)
[2017-10-24] MEDS: OXYCODONE HCL IR 5 MG TABLET PO PRN ×2 (10:43→18:34)
[2017-10-24] MEDS: FLUTICASONE NASAL SPRAY 50 MCG/SPRY 120 SPRAY/16 GM NASL SCH (10:44)
[2017-10-24 16:06] LABS: ANION GAP 6 (5-19); BLOOD UREA NITROGEN 5 mg/dL (7-20); CALCIUM 8.6 mg/dL (8.4-10.2); CARBON DIOXIDE 25 mmol/L (22-30); CHLORIDE 105 mmol/L (98-107); GLUCOSE 204 mg/dL (75-110); SODIUM 136.2 mmol/L (137-145)
--- NOTE | 2017-10-24 17:07 | PDOC PROGRESS REPORT ---
Subjective Progress Note for:: 10/24/17 Subjective:: Patient is a 31-year-old female with a past medical history of type 1 diabetes, bipolar disorder, and noncompliance and recurrent hospitalizations for DKA who was admitted early this morning for DKA and pancreatitis. The patient is seen on morning rounds. She is found resting in bed comfortably on room air. She states that she is feeling much better. She reports slight back pain, but states that her abdominal pain and nausea have resolved. She requests that I increase the portion size of her meals. She denies fever, chills, chest pain, palpitation, shortness of breath, abdominal pain, nausea, vomiting, and diarrhea. She has no other questions or concerns at this time. Reason For Visit: DKA NON COMPLIANCE BIPOLAR Physical Exam Vital Signs: Temp Pulse Resp BP Pulse Ox 97.9 F 116 H 16 122/82 100 10/24/17 12:12 10/24/17 14:00 10/24/17 12:12 10/24/17 12:12 10/24/17 12:12 Intake & Output 10/23/17 10/24/17 10/25/17 06:59 06:59 06:59 Intake Total 2800 7724 681 Balance 2800 7724 681 Weight 63.7 kg 65.2 kg General appearance: PRESENT: no acute distress, well-developed, well-nourished, other - Overweight Head exam: PRESENT: atraumatic, normocephalic Eye exam: PRESENT: conjunctiva pink, EOMI, PERRLA. ABSENT: scleral icterus Ear exam: PRESENT: normal external ear exam Mouth exam: PRESENT: moist, tongue midline Neck exam: ABSENT: carotid bruit, JVD, lymphadenopathy, thyromegaly Respiratory exam: PRESENT: clear to auscultation lam, symmetrical, unlabored. ABSENT: rales, rhonchi, wheezes Cardiovascular exam: PRESENT: RRR, +S1, +S2, tachycardia. ABSENT: diastolic murmur, rubs, systolic murmur Pulses: PRESENT: normal dorsalis pedis pul Vascular exam: PRESENT: normal capillary refill GI/Abdominal exam: PRESENT: normal bowel sounds, soft. ABSENT: distended, guarding, mass, organolmegaly, rebound, tenderness Rectal exam: PRESENT: deferred Extremities exam: PRESENT: full ROM. ABSENT: calf tenderness, clubbing, pedal edema Neurological exam: PRESENT: alert, awake, oriented to person, oriented to place , oriented to time, oriented to situation, CN II-XII grossly intact. ABSENT: motor sensory deficit Psychiatric exam: PRESENT: normal mood, unusual affect. ABSENT: homicidal ideation, suicidal ideation Skin exam: PRESENT: dry, intact, warm. ABSENT: cyanosis, rash Results Laboratory Results: 10/24/17 15:35 10/24/17 15:35 10/23/17 10/24/17 10/24/17 19:15 04:40 04:40 WBC Cancelled RBC Cancelled Hgb Cancelled Hct Cancelled MCV Cancelled MCH Cancelled MCHC Cancelled RDW Cancelled Plt Count Cancelled Sodium 137.9 Cancelled Potassium 3.6 Cancelled Chloride 113 H Cancelled Carbon Dioxide 17 L Cancelled Anion Gap 8 Cancelled BUN 2 L Cancelled Creatinine 0.43 L Cancelled Est GFR ( Amer) > 60 Cancelled Est GFR (Non-Af Amer) > 60 Cancelled Glucose 209 H Cancelled Calcium 7.7 L Cancelled Lipase 10/24/17 10/24/17 10/24/17 08:25 08:25 08:25 WBC 4.4 RBC 3.23 L Hgb 8.1 L Hct 26.1 L MCV 81 MCH 25.1 L MCHC 31.1 L RDW 21.5 H Plt Count 295 Sodium 138.7 Potassium 3.2 L Chloride 117 H Carbon Dioxide 17 L Anion Gap 5 BUN 2 L Creatinine 0.33 L Est GFR ( Amer) > 60 Est GFR (Non-Af Amer) > 60 Glucose 211 H Calcium 6.7 L* Lipase 471.1 H 10/24/17 10/24/17 15:35 15:35 WBC Cancelled RBC Cancelled Hgb Cancelled Hct Cancelled MCV Cancelled MCH Cancelled MCHC Cancelled RDW Cancelled Plt Count Cancelled Sodium 136.2 L Potassium 4.0 Chloride 105 Carbon Dioxide 25 Anion Gap 6 BUN 5 L Creatinine 0.46 L Est GFR ( Amer) > 60 Est GFR (Non-Af Amer) > 60 Glucose 204 H Calcium 8.6 Lipase Impressions: Abdomen Ultrasound 10/22/17 00:00 IMPRESSION: Fatty liver. No gallstones Assessment & Plan - Diagnosis (1) DKA (diabetic ketoacidoses) Qualifiers: Diabetes mellitus type: type 1 Diabetes mellitus complication detail: without coma Qualified Code(s): E10.10 - Type 1 diabetes mellitus with ketoacidosis without coma Is this a current diagnosis for this admission?: Yes Plan: Resolved. The patient is admitted to [facility] on continuous cardiac telemetry. She was initially treated with aggressive IV fluids and an insulin drip. Her anion gap has trended down from 17-65. She has been advanced to a consistent carb diet. She is on Levemir 12 units twice daily (medication reconciliation shows Levemir 26 units twice daily; some concern to accuracy and compliance). We will continue Accu-Cheks before meals and at bedtime with Humalog for sliding scale coverage. The family life educator and registered dietitian have been consulted. (2) Pancreatitis Qualifiers: Chronicity: acute Is this a current diagnosis for this admission?: Yes Plan: Improved. Lipase has trended down to 471 from 5946. Abdominal ultrasound revealed fatty liver, no gallstones. Triglycerides are elevated to 212 LDL 70, HDL 65. Pt has been advanced to a consistent carb diet; tolerating well. IV fluids discontinued last evening. Oxycodone for pain, Phenergan for antiemetic. (3) Bipolar 1 disorder Is this a current diagnosis for this admission?: Yes Plan: Continue home medications. (4) Hypokalemia Is this a current diagnosis for this admission?: Yes Plan: Replete. Will continue to monitor with daily chemistries replace as necessary. (5) Hypocalcemia Is this a current diagnosis for this admission?: Yes Plan: Resolved. (6) Anemia Is this a current diagnosis for this admission?: Yes Plan: Mild anemia noted with a admission hemoglobin of 11.2, with but is dropped to 8.1 this morning. This is likely secondary to hemodilution as the patient received aggressive IV fluid resuscitation. Unfortunately, strict I's and O's were not obtained and so positive balance is unable to be calculated. However, the patient is likely volume overloaded. No evidence of active or ongoing bleeding. IVF were discontinued last night. We will trend hemoglobin. Stool for Hemoccult is pending. 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 It does not appear that she is on any home medications for this. Will continue to monitor; she is on continuous cardiac telemetry. She is placed on Coreg 3.125 mg twice daily. - Time Time Spent with patient: 25-34 minutes Medications reviewed and adjusted accordingly: Yes Anticipated discharge: Home Within: within 24 hours
[2017-10-24 17:09] LABS: HEMATOCRIT 34.6 % (36.0-47.0); MEAN CORPUSCULAR HEMOGLOBIN 25.2 pg (27.0-33.4); MEAN CORPUSCULAR HGB CONC 32.7 g/dL (32.0-36.0); PLATELET COUNT 371 10^3/uL (150-450); RED BLOOD COUNT 4.49 10^6/uL (3.72-5.28); WHITE BLOOD COUNT 5.9 10^3/uL (4.0-10.5)
[2017-10-24 17:10] LABS: MEAN CORPUSCULAR VOLUME 77 fl (80-97)
[2017-10-24 17:11] LABS: HEMOGLOBIN 11.3 g/dL (12.0-15.5)
[2017-10-24] MEDS: CARVEDILOL 3.125 MG TABLET PO SCH (21:54)
--- NOTE | 2017-10-24 23:42 | EKG REPORT ---
SEVERITY:- BORDERLINE ECG - SINUS TACHYCARDIA BORDERLINE T WAVE ABNORMALITIES : Confirmed by: Lamin Bonilla 24-Oct-2017 23:41:08
[2017-10-25] MEDS: OXYCODONE HCL IR 5 MG TABLET PO PRN ×2 (02:54→21:18)
[2017-10-25] MEDS: INSULIN LISPRO 100 UNIT/ML 3 ML VIAL SUBCUT PRN ×4 (03:47→21:24)
[2017-10-25] MEDS: HEPARIN SOD (PORCINE) 5,000 UNIT/ML 1 ML SYRINGE SUBCUT SCH ×3 (05:12→21:25)
[2017-10-25] MEDS: GABAPENTIN 300 MG CAPSULE PO SCH ×3 (05:21→21:16)
[2017-10-25 06:32] LABS: ABSOLUTE EOSINOPHILS # (AUTO) 0.1 10^3/uL (0.0-0.6); ABSOLUTE MONOCYTES (AUTO) 0.6 10^3/uL (0.1-1.4); ABSOLUTE NEUT (AUTO) 2.7 10^3/uL (1.7-8.2); BASOPHILS % (AUTO) 0.6 % (0-2); EOSINOPHILS % (AUTO) 1.9 % (0-6); HEMOGLOBIN 9.4 g/dL (12.0-15.5); LYMPHOCYTES % (AUTO) 37.7 % (13-45); MEAN CORPUSCULAR HEMOGLOBIN 25.5 pg (27.0-33.4); MEAN CORPUSCULAR HGB CONC 32.5 g/dL (32.0-36.0); MEAN CORPUSCULAR VOLUME 79 fl (80-97); MONOCYTES % (AUTO) 10.2 % (3-13); PLATELET COUNT 367 10^3/uL (150-450); RED BLOOD COUNT 3.69 10^6/uL (3.72-5.28); RED CELL DISTRIBUTION WIDTH 21.2 % (11.5-14.0); SEGMENTED NEUTROPHILS % (AUTO) 49.6 % (42-78); TOTAL CELLS COUNTED % (AUTO) 100 %; WHITE BLOOD COUNT 5.4 10^3/uL (4.0-10.5)
[2017-10-25 07:00] LABS: ALANINE AMINOTRANSFERASE 18 U/L (9-52); ALBUMIN 2.6 g/dL (3.5-5.0); ALKALINE PHOSPHATASE 131 U/L (38-126); ANION GAP 11 (5-19); ASPARTATE AMINO TRANSFERASE 16 U/L (14-36); BLOOD UREA NITROGEN 11 mg/dL (7-20); CALCIUM 8.9 mg/dL (8.4-10.2); CARBON DIOXIDE 23 mmol/L (22-30); CHLORIDE 101 mmol/L (98-107); GLUCOSE 139 mg/dL (75-110); POTASSIUM 3.6 mmol/L (3.6-5.0); SODIUM 135.3 mmol/L (137-145); TOTAL PROTEIN 4.8 g/dL (6.3-8.2)
[2017-10-25 07:07] LABS: BILIRUBIN,TOTAL < 0.1 mg/dL (0.2-1.3)
[2017-10-25] MEDS: INSULIN GLARGINE,HUM.REC.ANLOG 300 UNIT/3 ML INSULN.PEN SUBCUT SCH ×2 (09:23→21:18)
[2017-10-25] MEDS: ARIPIPRAZOLE 5 MG TABLET PO SCH (09:23)
[2017-10-25] MEDS: FLUOXETINE HCL 20 MG CAPSULE PO SCH (09:23)
[2017-10-25] MEDS: FAMOTIDINE 20 MG TABLET PO SCH ×2 (09:24→21:17)
[2017-10-25] MEDS: CALCIUM CARBONATE 250 MG/VITAMIN D3 125 UNIT TABLET PO SCH (09:24)
[2017-10-25] MEDS: DOCUSATE SODIUM 100 MG CAPSULE PO SCH ×2 (09:24→17:14)
[2017-10-25] MEDS: CARVEDILOL 3.125 MG TABLET PO SCH ×2 (09:25→21:17)
[2017-10-25] MEDS: FLUTICASONE NASAL SPRAY 50 MCG/SPRY 120 SPRAY/16 GM NASL SCH (09:25)
[2017-10-25] MEDS ORDERED: INSULIN REG, HUMAN 100 UNIT/ML 3 ML VIAL (PYX) SUBCUT ONE (12:30)
--- NOTE | 2017-10-25 15:14 | PDOC PROGRESS REPORT ---
Subjective Progress Note for:: 10/25/17 Subjective:: Pt states that she is not having abd pain. Pt states when she was discharged from outside hospital she did not feel well and did not use insulin. Reason For Visit: DKA NON COMPLIANCE BIPOLAR Physical Exam Vital Signs: Temp Pulse Resp BP Pulse Ox 97.9 F 110 H 18 102/67 96 10/25/17 11:15 10/25/17 11:15 10/25/17 11:15 10/25/17 11:15 10/25/17 11:15 Intake & Output 10/24/17 10/25/17 10/26/17 06:59 06:59 06:59 Intake Total 7724 2495 474 Balance 7724 2495 474 Weight 65.2 kg 72.1 kg General appearance: PRESENT: no acute distress, well-developed, well-nourished Head exam: PRESENT: atraumatic, normocephalic Eye exam: PRESENT: conjunctiva pink, EOMI. ABSENT: scleral icterus Ear exam: PRESENT: normal external ear exam Mouth exam: PRESENT: moist, tongue midline Neck exam: ABSENT: carotid bruit, JVD, lymphadenopathy, thyromegaly Respiratory exam: PRESENT: clear to auscultation lam. ABSENT: rales, rhonchi, wheezes Cardiovascular exam: PRESENT: RRR. ABSENT: diastolic murmur, rubs, systolic murmur Pulses: PRESENT: normal dorsalis pedis pul Vascular exam: PRESENT: normal capillary refill GI/Abdominal exam: PRESENT: normal bowel sounds, soft. ABSENT: distended, guarding, mass, organolmegaly, rebound, tenderness Rectal exam: PRESENT: deferred Extremities exam: PRESENT: full ROM. ABSENT: calf tenderness, clubbing, pedal edema Neurological exam: PRESENT: alert, awake, oriented to person, oriented to place , oriented to time, oriented to situation, CN II-XII grossly intact. ABSENT: motor sensory deficit Psychiatric exam: PRESENT: appropriate affect, normal mood. ABSENT: homicidal ideation, suicidal ideation Skin exam: PRESENT: dry, intact, warm. ABSENT: cyanosis, rash Results Laboratory Results: 10/25/17 05:25 10/25/17 05:25 10/24/17 10/24/17 10/24/17 15:35 15:35 16:55 WBC Cancelled 5.9 RBC Cancelled 4.49 Hgb Cancelled 11.3 L D Hct Cancelled 34.6 L MCV Cancelled 77 L D MCH Cancelled 25.2 L MCHC Cancelled 32.7 RDW Cancelled 21.0 H Plt Count Cancelled 371 Seg Neutrophils % Lymphocytes % Monocytes % Eosinophils % Basophils % Absolute Neutrophils Absolute Lymphocytes Absolute Monocytes Absolute Eosinophils Absolute Basophils Sodium 136.2 L Potassium 4.0 Chloride 105 Carbon Dioxide 25 Anion Gap 6 BUN 5 L Creatinine 0.46 L Est GFR ( Amer) > 60 Est GFR (Non-Af Amer) > 60 Glucose 204 H Calcium 8.6 Total Bilirubin AST ALT Alkaline Phosphatase Total Protein Albumin 10/25/17 10/25/17 05:25 05:25 WBC 5.4 RBC 3.69 L Hgb 9.4 L Hct 29.0 L MCV 79 L MCH 25.5 L MCHC 32.5 RDW 21.2 H Plt Count 367 Seg Neutrophils % 49.6 Lymphocytes % 37.7 Monocytes % 10.2 Eosinophils % 1.9 Basophils % 0.6 Absolute Neutrophils 2.7 Absolute Lymphocytes 2.0 Absolute Monocytes 0.6 Absolute Eosinophils 0.1 Absolute Basophils 0.0 Sodium 135.3 L Potassium 3.6 Chloride 101 Carbon Dioxide 23 Anion Gap 11 BUN 11 Creatinine 0.49 L Est GFR ( Amer) > 60 Est GFR (Non-Af Amer) > 60 Glucose 139 H Calcium 8.9 Total Bilirubin < 0.1 L AST 16 ALT 18 Alkaline Phosphatase 131 H Total Protein 4.8 L Albumin 2.6 L Impressions: Abdomen Ultrasound 10/22/17 00:00 IMPRESSION: Fatty liver. No gallstones Assessment & Plan - Diagnosis (1) Anemia Is this a current diagnosis for this admission?: Yes Plan: Most likely Iron Deficiency Anemia: Will check anemia work up. (2) Bipolar 1 disorder Is this a current diagnosis for this admission?: Yes Plan: Continue Abilify (3) DKA (diabetic ketoacidoses) Qualifiers: Diabetes mellitus type: type 1 Diabetes mellitus complication detail: without coma Is this a current diagnosis for this admission?: Yes Plan: Will increase Lantus dose to 18 units SQ Q12 and place on meal time insulin 8 units SQ TID with meals. (4) Hypocalcemia Is this a current diagnosis for this admission?: Yes Plan: Resolved. (5) Hypokalemia Is this a current diagnosis for this admission?: Yes Plan: resolved. (6) Pancreatitis Qualifiers: Chronicity: acute Is this a current diagnosis for this admission?: Yes Plan: Resolved. (7) Tachycardia Is this a current diagnosis for this admission?: Yes Plan: Resolved. (8) Dehydration Is this a current diagnosis for this admission?: Yes Plan: Secondary to DKA: Resolved. (9) Hyponatremia Is this a current diagnosis for this admission?: Yes Plan: Secondary to Hyperglycemia: Will continue to monitor. (10) DVT prophylaxis Is this a current diagnosis for this admission?: Yes Plan: SCDs
[2017-10-25 15:27] LABS: ABSOLUTE RETICS # 0.075 10^6/uL (0.028-0.122); RETICULOCYTE COUNT (AUTO) 2.04 % (0.66-2.85)
[2017-10-25 15:38] LABS: IRON(TIBC) 16.2 ug/dL (37-170)
[2017-10-25 16:15] LABS: FERRITIN 6.79 ng/mL (6.2-137.0)
[2017-10-25 16:45] LABS: FOLATE 7.58 ng/mL (>2.76)
[2017-10-25] MEDS: INSULIN LISPRO 100 UNIT/ML 3 ML VIAL SUBCUT SCH (17:13)
[2017-10-26] MEDS: HEPARIN SOD (PORCINE) 5,000 UNIT/ML 1 ML SYRINGE SUBCUT SCH ×2 (05:00→15:22)
[2017-10-26] MEDS: GABAPENTIN 300 MG CAPSULE PO SCH ×2 (06:24→15:21)
[2017-10-26 07:46] LABS: ABSOLUTE BASOPHILS # (AUTO) 0.1 10^3/uL (0.0-0.2); ABSOLUTE EOSINOPHILS # (AUTO) 0.1 10^3/uL (0.0-0.6); ABSOLUTE LYMPHOCYTES (AUTO) 1.8 10^3/uL (0.5-4.7); ABSOLUTE MONOCYTES (AUTO) 0.5 10^3/uL (0.1-1.4); ABSOLUTE NEUT (AUTO) 2.3 10^3/uL (1.7-8.2); BASOPHILS % (AUTO) 1.4 % (0-2); EOSINOPHILS % (AUTO) 1.8 % (0-6); HEMATOCRIT 34.6 % (36.0-47.0); HEMOGLOBIN 11.2 g/dL (12.0-15.5); LYMPHOCYTES % (AUTO) 37.8 % (13-45); MEAN CORPUSCULAR HEMOGLOBIN 24.9 pg (27.0-33.4); MEAN CORPUSCULAR HGB CONC 32.4 g/dL (32.0-36.0); MEAN CORPUSCULAR VOLUME 77 fl (80-97); PLATELET COUNT 429 10^3/uL (150-450); RED CELL DISTRIBUTION WIDTH 21.6 % (11.5-14.0); TOTAL CELLS COUNTED % (AUTO) 100 %; WHITE BLOOD COUNT 4.8 10^3/uL (4.0-10.5)
[2017-10-26] MEDS: INSULIN LISPRO 100 UNIT/ML 3 ML VIAL SUBCUT SCH ×2 (07:51→11:49)
[2017-10-26] MEDS: INSULIN LISPRO 100 UNIT/ML 3 ML VIAL SUBCUT PRN ×2 (07:51→11:49)
[2017-10-26 07:53] LABS: ALANINE AMINOTRANSFERASE 19 U/L (9-52); ALBUMIN 3.4 g/dL (3.5-5.0); ALKALINE PHOSPHATASE 147 U/L (38-126); ANION GAP 8 (5-19); ASPARTATE AMINO TRANSFERASE 32 U/L (14-36); BILIRUBIN,DIRECT 0.2 mg/dL (0.0-0.4); BILIRUBIN,TOTAL 0.2 mg/dL (0.2-1.3); BLOOD UREA NITROGEN 14 mg/dL (7-20); CALCIUM 9.6 mg/dL (8.4-10.2); CARBON DIOXIDE 30 mmol/L (22-30); CHLORIDE 99 mmol/L (98-107); GLUCOSE 237 mg/dL (75-110); POTASSIUM 4.6 mmol/L (3.6-5.0); SODIUM 136.7 mmol/L (137-145); TOTAL PROTEIN 6.4 g/dL (6.3-8.2)
[2017-10-26] MEDS: FAMOTIDINE 20 MG TABLET PO SCH (10:00)
[2017-10-26] MEDS: CALCIUM CARBONATE 250 MG/VITAMIN D3 125 UNIT TABLET PO SCH (10:00)
[2017-10-26] MEDS: ARIPIPRAZOLE 5 MG TABLET PO SCH (10:00)
[2017-10-26] MEDS: INSULIN GLARGINE,HUM.REC.ANLOG 300 UNIT/3 ML INSULN.PEN SUBCUT SCH (10:00)
[2017-10-26] MEDS: DOCUSATE SODIUM 100 MG CAPSULE PO SCH (10:00)
[2017-10-26] MEDS: FLUOXETINE HCL 20 MG CAPSULE PO SCH (10:00)
[2017-10-26] MEDS: FLUTICASONE NASAL SPRAY 50 MCG/SPRY 120 SPRAY/16 GM NASL SCH (10:01)
[2017-10-26] MEDS: CARVEDILOL 3.125 MG TABLET PO SCH (10:01)
--- NOTE | 2017-10-26 15:59 | PDOC DISCHARGE SUMMARY ---
General - Admit/Disc Date/PCP Admission Date/Primary Care Provider: 10/22/17 06:22 Discharge Date: 10/26/17 - Discharge Diagnosis (1) Anemia Is this a current diagnosis for this admission?: Yes Summary: Iron Deficiency Anemia: Pt encouraged to place on iron replacement. (2) Bipolar 1 disorder Is this a current diagnosis for this admission?: Yes Summary: Pt will continue home medications. (3) DKA (diabetic ketoacidoses) Is this a current diagnosis for this admission?: Yes Summary: Resolved (4) Hypocalcemia Is this a current diagnosis for this admission?: Yes Summary: Resolved. (5) Hypokalemia Is this a current diagnosis for this admission?: Yes Summary: Resolved with replacement. (6) Pancreatitis Is this a current diagnosis for this admission?: Yes Summary: Resolved. (7) Tachycardia Is this a current diagnosis for this admission?: Yes Summary: Pt placed on Beta jacy. (8) Dehydration Is this a current diagnosis for this admission?: Yes Summary: Resolved. (9) Hyponatremia Is this a current diagnosis for this admission?: Yes Summary: Resolving. - Additional Information Resuscitation Status: Full Code Discharge Diet: Diabetic Discharge Activity: Activity As Tolerated, Walk Frequently Prescriptions: Carvedilol [Coreg 3.125 mg Tablet] 3.125 mg PO Q12 #60 tablet Insulin Detemir [Levemir Flextouch] 26 units SQ Q12 #1 insuln.pen Insulin Lispro [Humalog Kwikpen U-100] 8 units SQ MEALS #1 insuln.pen Home Medications: Fluoxetine HCl [Prozac 20 mg Capsule] 20 mg PO DAILY 10/22/17 Gabapentin [Neurontin] 600 mg PO Q8 10/22/17 Insulin Lispro [Humalog Kwikpen U-100] See Protocol SQ MEALS 10/22/17 Pantoprazole Sodium [Protonix] 40 mg PO DAILY 10/22/17 Aripiprazole [Abilify 5 mg Tablet] 5 mg PO DAILY #0 tablet 10/26/17 Carvedilol [Coreg 3.125 mg Tablet] 3.125 mg PO Q12 #60 tablet 10/26/17 Insulin Detemir [Levemir Flextouch] 26 units SQ Q12 #1 insuln.pen 10/26/17 Insulin Lispro [Humalog Kwikpen U-100] 8 units SQ MEALS #1 insuln.pen 10/26/17 History of Present Illness Patient complains of: Polyuria, Polydipsia, abdominal pain, and Nausea. History of Present Illness: RUMA HUITRON is a 22 year old female presented to the hospital after recently being discharged from [facility] and DKA. Hospital Course Hospital Course: 22-year-old admitted to our hospital due to DKA. Patient was placed on insulin IV fluids patient's acidosis resolved and patient was transitioned over to sliding scale insulin. Patient was noted to be tachycardic and therefore was placed on low-dose beta-jacy. Patient was encouraged to use medications as prescribed. Patient was noted to have electrolyte abnormalities which were corrected while in hospital. Physical Exam Vital Signs: Temp Pulse Resp BP Pulse Ox 98.5 F 93 12 108/67 98 10/26/17 12:00 10/26/17 12:00 10/26/17 12:00 10/26/17 12:00 10/26/17 12:00 Intake & Output 10/25/17 10/26/17 10/27/17 06:59 06:59 06:59 Intake Total 2495 2735 414 Balance 2495 2735 414 Weight 72.1 kg 71.2 kg General appearance: PRESENT: no acute distress, well-developed, well-nourished Head exam: PRESENT: atraumatic, normocephalic Eye exam: PRESENT: conjunctiva pink, EOMI. ABSENT: scleral icterus Ear exam: PRESENT: normal external ear exam Mouth exam: PRESENT: moist, tongue midline Neck exam: ABSENT: carotid bruit, JVD, lymphadenopathy, thyromegaly Respiratory exam: PRESENT: clear to auscultation lam. ABSENT: rales, rhonchi, wheezes Cardiovascular exam: PRESENT: RRR. ABSENT: diastolic murmur, rubs, systolic murmur Pulses: PRESENT: normal dorsalis pedis pul Vascular exam: PRESENT: normal capillary refill GI/Abdominal exam: PRESENT: normal bowel sounds, soft. ABSENT: distended, guarding, mass, organolmegaly, rebound, tenderness Rectal exam: PRESENT: deferred Extremities exam: PRESENT: full ROM. ABSENT: calf tenderness, clubbing, pedal edema Neurological exam: PRESENT: alert, awake, oriented to person, oriented to place , oriented to time, oriented to situation, CN II-XII grossly intact. ABSENT: motor sensory deficit Psychiatric exam: PRESENT: appropriate affect, normal mood. ABSENT: homicidal ideation, suicidal ideation Skin exam: PRESENT: dry, intact, warm. ABSENT: cyanosis, rash Results Laboratory Results: 10/26/17 07:22 10/26/17 07:22 10/25/17 10/26/17 10/26/17 05:25 07:22 07:22 WBC 4.8 RBC 4.50 Hgb 11.2 L Hct 34.6 L MCV 77 L MCH 24.9 L MCHC 32.4 RDW 21.6 H Plt Count 429 Seg Neutrophils % 48.0 Lymphocytes % 37.8 Monocytes % 11.0 Eosinophils % 1.8 Basophils % 1.4 Absolute Neutrophils 2.3 Absolute Lymphocytes 1.8 Absolute Monocytes 0.5 Absolute Eosinophils 0.1 Absolute Basophils 0.1 Sodium 136.7 L Potassium 4.6 Chloride 99 Carbon Dioxide 30 Anion Gap 8 BUN 14 Creatinine 0.45 L Est GFR ( Amer) > 60 Est GFR (Non-Af Amer) > 60 Glucose 237 H Calcium 9.6 Magnesium 1.8 Iron 16.2 L TIBC 286 % Saturation 6 Ferritin 6.79 Total Bilirubin 0.2 AST 32 ALT 19 Alkaline Phosphatase 147 H Total Protein 6.4 Albumin 3.4 L Vitamin B12 271.0 Folate 7.58 Impressions: Abdomen Ultrasound 10/22/17 00:00 IMPRESSION: Fatty liver. No gallstones Qualifiers - * PATEINT BEING DISCHARGED WITH ANY OF THE FOLLOWING DIAGNOSIS?: No Plan Time Spent: Greater than 30 Minutes
[2017-10-26 16:11] VITALS: BP 108/67
== END 2017-10-26 17:48 | disposition home or self-care (01) | DRG 637 ==
LOC: ER 23:06 → EH 10-22 06:22 → 3S 10-22 15:00
PROVIDERS: ADMIT Internal Medicine; ATTEND Internal Medicine
PROC: 06HY33Z Insertion of Infusion Device into Lower Vein, Percutaneous Approach (ICD-10-PCS; principal; 2017-10-22)
DX: E10.10 Type 1 diabetes mellitus with ketoacidosis without coma (principal); K85.90 Acute pancreatitis without necrosis or infection, unspecified; K76.0 Fatty (change of) liver, not elsewhere classified; E87.1 Hypo-osmolality and hyponatremia; E83.51 Hypocalcemia; D50.9 Iron deficiency anemia, unspecified; F31.9 Bipolar disorder, unspecified; E87.6 Hypokalemia; E86.0 Dehydration; Z90.49 Acquired absence of other specified parts of digestive tract; Z79.899 Other long term (current) drug therapy; Z91.19 Patient's noncompliance with other medical treatment and regimen; Z88.6 Allergy status to analgesic agent; Z88.4 Allergy status to anesthetic agent; Z88.0 Allergy status to penicillin; Z88.8 Allergy status to other drugs, medicaments and biological substances; Z82.49 Family history of ischemic heart disease and other diseases of the circulatory system
CPT/HCPCS: 36415; 76705; 80048; 80053; 80061; 80307; 81001; 82607; 82728; 82746; 82803; 82962; 83036; 83540; 83550; 83690; 83735; 84100; 84466; 84703; 85025; 85027; 85045; 93005; 93010; 94667; 96361; 96365; 96375; 96376; 99285; C1751; J1642; J1644; J1815; J2405; J3010; J3480; J7030; J7120; S0028

== ENCOUNTER 2017-12-24 13:53 | Emergency (ER) | payer MEDICAID ==
--- NOTE | 2017-12-24 14:42 | ER Document Report ---
ED General - General Chief Complaint: Vaginal Itching Stated Complaint: VAGINAL ISSUE Time Seen by Provider: 12/24/17 14:35 Mode of Arrival: Medic Information source: Patient TRAVEL OUTSIDE OF THE [place] IN LAST 30 DAYS: No - HPI Notes: Patient is a 22-year-old female presents to the emergency department with report of vaginal itching and mild clear discharge that she has had for the last 2-3 days. The patient has clindamycin pills that she has been taking which have not helped the situation. The patient reports that she was diagnosed with trichomonas and was treated with Flagyl recently, and she states her partner was also treated. The patient denies any fever chills or nausea or vomiting or abdominal pain or chest pain or back pain. No constipation or diarrhea. No pelvic pain. Patient checked her blood sugar and it was 234 just prior to arrival. - Related Data Allergies/Adverse Reactions: bupropion [From Wellbutrin] Allergy (Verified 12/24/17 14:30) diphenhydramine [From Benadryl] Allergy (Verified 12/24/17 14:30) Penicillins Allergy (Verified 12/24/17 14:30) Home Medications: clindamycin. levemir. humalog. gabapentin. loperamide. simethicon. potassium Past Medical History - General Information source: Patient - Social History Smoking Status: Never Smoker Frequency of alcohol use: None Drug Abuse: None Lives with: Alone Family History: Hypertension Patient has suicidal ideation: No Patient has homicidal ideation: No Endocrine Medical History: Reports: Hx Diabetes Mellitus Type 1 Renal/ Medical History: Denies: Hx Peritoneal Dialysis Psychiatric Medical History: Reports: Hx Bipolar Disorder, Hx Depression Review of Systems - Review of Systems Notes: REVIEW OF SYSTEMS: CONSTITUTIONAL : Denies fever, chills, or sweats. Denies recent illness. EENT: Denies eye, ear, throat, or mouth pain or symptoms. Denies nasal or sinus congestion or discharge. Denies throat, tongue, or mouth swelling or difficulty swallowing. CARDIOVASCULAR: Denies chest pain. Denies palpitations or racing or irregular heart beat. Denies ankle edema. RESPIRATORY: Denies cough, cold, or chest congestion. Denies shortness of breath, difficulty breathing, or wheezing. GASTROINTESTINAL: Denies abdominal pain or distention. Denies nausea, vomiting , or diarrhea. Denies blood in vomitus, stools, or per rectum. Denies black, tarry stools. Denies constipation. GENITOURINARY: Denies difficulty urinating, painful urination, burning, frequency, blood in urine, or discharge. FEMALE GENITOURINARY: Denies vaginal bleeding, heavy or abnormal periods, irregular periods. Denies vaginal odor. MUSCULOSKELETAL: Denies back or neck pain or stiffness. Denies joint pain or swelling. SKIN: Denies rash, lesions or sores. HEMATOLOGIC : Denies easy bruising or bleeding. LYMPHATIC: Denies swollen, enlarged glands. NEUROLOGICAL: Denies confusion or altered mental status. Denies passing out or loss of consciousness. Denies dizziness or lightheadedness. Denies headache. Denies weakness or paralysis or loss of use of either side. Denies problems with gait or speech. Denies sensory loss, numbness, or tingling. Denies seizures. PSYCHIATRIC: Denies anxiety or stress. Denies depression, suicidal ideation, or homicidal ideation. ALL OTHER SYSTEMS REVIEWED AND NEGATIVE. Dictation was performed using [employer] voice recognition software Physical Exam - Vital signs Vitals: Temp Pulse Resp BP Pulse Ox 98.6 F 102 H 16 109/73 99 12/24/17 14:09 12/24/17 14:09 12/24/17 14:09 12/24/17 14:09 12/24/17 14:09 - Notes Notes: PHYSICAL EXAMINATION: GENERAL: Well-appearing, well-nourished and in no acute distress. HEAD: Atraumatic, normocephalic. EYES: Pupils equal round and reactive to light, extraocular movements intact, conjunctiva are normal. ENT: Nares patent, oropharynx clear without exudates. Moist mucous membranes. NECK: Normal range of motion, supple without lymphadenopathy LUNGS: Breath sounds clear to auscultation bilaterally and equal. No wheezes rales or rhonchi. HEART: Regular rate and rhythm without murmurs ABDOMEN: Soft, nontender, nondistended abdomen. No guarding, no rebound. No masses appreciated. Surgical scars which are well-healed from previous colon resection for familial polyposis coli.. Female : Minimal fungal dermatitis external genitalia. No significant discharge. No cervical motion tenderness. No adnexal mass or tenderness noted. No evidence for herpetic lesions or cellulitis or abscess. Musculoskeletal: Normal range of motion, no pitting or edema. No cyanosis. NEUROLOGICAL: Cranial nerves grossly intact. Normal speech, normal gait. Normal sensory, motor exams PSYCH: Normal mood, normal affect. SKIN: Warm, Dry, normal turgor, no rashes or lesions noted. Course - Re-evaluation Re-evalutation: 12/24/17 16:57 Bacterial vaginosis noted on wet prep exam with mild fungal component. The patient given Diflucan and will write for additional Diflucan and for metronidazole. Patient's blood sugar was 234 just prior to arrival. She had trace ketones and was encouraged to drink plenty of fluids. She requested a prescription for Zofran for any subsequent nausea should she get it. No clinical suggestion for ketoacidosis or other diabetic complication. Patient has had no vomiting. - Vital Signs Vital signs: Temp Pulse Resp BP Pulse Ox 98.6 F 102 H 16 109/73 99 12/24/17 14:09 12/24/17 14:09 12/24/17 14:09 12/24/17 14:09 12/24/17 14:09 - Laboratory Laboratory results interpreted by me: 12/24/17 14:36 Urine Glucose (UA) >=500 H Urine Ketones TRACE H Urine Blood SMALL H Discharge - Discharge Clinical Impression: Bacterial vaginosis, Vagina, candidiasis Condition: Stable Disposition: HOME, SELF-CARE Instructions: Vaginal Yeast Infection ([facility]), Vaginosis, Bacterial ([facility]) Additional Instructions: Drink plenty of water. Watch her blood sugars closely. Take Flagyl twice a day for 1 week for bacterial vaginosis. Take 1 pill of Diflucan in case of any recurrence of yeast infection. Prescriptions: Ondansetron [Zofran Odt 4 mg Tablet] 1 tab PO Q8HP PRN #10 tab.rapdis PRN Reason: For Nausea/Vomiting Fluconazole [Diflucan] 150 mg PO ONCEP PRN #1 tablet PRN Reason: Metronidazole [Flagyl 500 mg Tablet] 500 mg PO BID #28 tablet
[2017-12-24 14:54] LABS: APPEARANCE,URINE SLIGHTLY-CLOUDY; BILIRUBIN,URINE NEGATIVE (NEGATIVE); CALCIUM OXALATE CRYSTALS,URINE MANY /HPF; COLOR,URINE YELLOW; GLUCOSE, URINE >=500 mg/dL (NEGATIVE); KETONES,URINE TRACE mg/dL (NEGATIVE); LEUKOCYTE ESTERASE,URINE NEGATIVE (NEGATIVE); NITRITE,URINE NEGATIVE (NEGATIVE); PROTEIN,URINE NEGATIVE (NEGATIVE); URINE SPECIFIC GRAVITY 1.036; UROBILINOGEN,URINE NEGATIVE mg/dL (<2.0)
[2017-12-24] MEDS ORDERED: ONDANSETRON 4 MG TAB.RAPDIS PO ONE (15:07)
[2017-12-24] MEDS ORDERED: FLUCONAZOLE 100 MG TABLET PO ONE (15:08)
[2017-12-24 15:28] LABS: BACTERIA (WET MOUNT) 3+ BACTERIA SEEN; EPITHELIALS (WET MOUNT) 3+ EPITHELIALS SEEN; RBCS (WET MOUNT) FEW RBCS SEEN; T.VAGINALIS (WET MOUNT) NO TRICHOMONAS SEEN; WBCS (WET MOUNT) 1+ WBCS SEEN; YEAST (WET MOUNT) BUDDING YEAST SEEN
[2017-12-24 16:15] LABS: CHLAM PCR NOT DETECTED (NOT DETECT); GON PCR NOT DETECTED (NOT DETECT)
[2017-12-24 17:28] VITALS: BP 111/71
== END 2017-12-24 17:27 | disposition home or self-care (01) ==
LOC: ER 13:53
DX: B37.3 Candidiasis of vulva and vagina (principal); N76.0 Acute vaginitis; B96.89 Other specified bacterial agents as the cause of diseases classified elsewhere; E10.9 Type 1 diabetes mellitus without complications; Z79.899 Other long term (current) drug therapy; Z88.8 Allergy status to other drugs, medicaments and biological substances; Z88.0 Allergy status to penicillin
CPT/HCPCS: 99283; 87210; 81025; 81001; 87491; 87591; S0119; J3490

== ENCOUNTER 2018-01-14 18:35 | Inpatient (IN) | payer MEDICAID ==
[2018-01-14] MEDS ORDERED: NORMAL SALINE 1000 ML 1,000 ML IV ONE ×2 (19:21→22:04)
[2018-01-14] MEDS ORDERED: PROMETHAZINE HCL INJ 25 MG/1 ML VIAL IV ONE (19:23)
--- NOTE | 2018-01-14 19:27 | ER Document Report ---
ED General - General Chief Complaint: Nausea/Vomiting Stated Complaint: NAUSEA/VOMITING Time Seen by Provider: 01/14/18 19:17 Mode of Arrival: Medic Information source: Patient Notes: 22-year-old female presents emergency department with complaints of nausea, vomiting, generalized weakness, LUQ abdominal pain. Patient says that she consumed alcohol last night and thinks this caused her pancreatitis to flare up. Patient also states that she has a history of type 1 diabetes and thinks that she is in DKA. Patient states that she has been taking her insulin as directed. She denies a history of sick contacts. Patient denies any fever, chills, chest pain, shortness of breath, hematuria, dysuria, vaginal bleeding, vaginal discharge. TRAVEL OUTSIDE OF THE [place] IN LAST 30 DAYS: No - HPI Onset: Just prior to arrival Onset/Duration: Gradual Quality of pain: Achy Severity: Mild Pain Level: 2 Associated symptoms: Nausea, Vomiting Exacerbated by: Denies Relieved by: Denies Similar symptoms previously: Yes Recently seen / treated by doctor: No - Related Data Allergies/Adverse Reactions: bupropion [From Wellbutrin] Allergy (Verified 01/14/18 19:03) diphenhydramine [From Benadryl] Allergy (Verified 01/14/18 19:03) Penicillins Allergy (Verified 01/14/18 19:03) Past Medical History - Social History Smoking Status: Current Every Day Smoker Chew tobacco use (# tins/day): No Frequency of alcohol use: None Drug Abuse: None Family History: Hypertension Patient has suicidal ideation: No Patient has homicidal ideation: No Endocrine Medical History: Reports: Hx Diabetes Mellitus Type 1 Renal/ Medical History: Denies: Hx Peritoneal Dialysis Psychiatric Medical History: Reports: Hx Bipolar Disorder, Hx Depression Review of Systems - Review of Systems Constitutional: No symptoms reported EENT: No symptoms reported Cardiovascular: No symptoms reported Respiratory: No symptoms reported Gastrointestinal: Abdominal pain, Nausea, Vomiting Genitourinary: No symptoms reported Female Genitourinary: No symptoms reported Musculoskeletal: No symptoms reported Skin: No symptoms reported Neurological/Psychological: No symptoms reported -: Yes All other systems reviewed and negative Physical Exam - Vital signs Vitals: Temp Pulse Resp BP Pulse Ox 98 F 109 H 18 113/68 100 01/14/18 18:36 01/14/18 18:36 01/14/18 18:36 01/14/18 18:36 01/14/18 18:36 Interpretation: Tachycardic - Notes Notes: PHYSICAL EXAMINATION: GENERAL: Well-appearing, well-nourished and in no acute distress. HEAD: Atraumatic, normocephalic. EYES: Pupils equal round and reactive to light, extraocular movements intact, conjunctiva are normal. ENT: Nares patent, oropharynx clear without exudates. Moist mucous membranes. NECK: Normal range of motion, supple without lymphadenopathy LUNGS: Breath sounds clear to auscultation bilaterally and equal. No wheezes rales or rhonchi. HEART: Tachycardic ABDOMEN: Soft, tenderness in the LUQ area. Nondistended abdomen. No guarding, no rebound. Normal active bowel sounds. Female : deferred Musculoskeletal: Normal range of motion, no pitting or edema. No cyanosis. NEUROLOGICAL: Cranial nerves grossly intact. Normal speech, normal gait. Normal sensory, motor exams PSYCH: Normal mood, normal affect. SKIN: Warm, Dry, normal turgor, no rashes or lesions noted. Course - Re-evaluation Re-evalutation: 01/14/18 22:22 Labs and imaging obtained. Patient has a metabolic acidosis with increased anion gap. Blood glucose is less than 250. Patient had 1L of fluids. A second liter of fluids ordered. Lipase is elevated. Patient says that she consumed alcohol last night. No alcohol today. Still having some nausea. Abdominal pain is reducing after toradol. I contacted the hospitalist for admission. Dr. Jones will put in orders for insulin drip. Patient is agreeable with admission. - Vital Signs Vital signs: Temp Pulse Resp BP Pulse Ox 98 F 109 H 21 H 109/72 100 01/14/18 18:36 01/14/18 18:36 01/14/18 19:01 01/14/18 19:01 01/14/18 19:01 - Laboratory Result Diagrams: 01/14/18 20:13 01/14/18 20:13 Laboratory results interpreted by me: 01/14/18 01/14/18 01/14/18 19:50 19:53 20:13 WBC 15.7 H RBC 5.62 H MCV 77 L MCH 23.7 L MCHC 30.6 L RDW 17.6 H Plt Count 547 H Seg Neutrophils % 83.2 H Lymphocytes % 9.5 L Absolute Neutrophils 13.1 H Carbonic Acid ABG pH ABG pCO2 ABG pO2 ABG HCO3 ABG Total CO2 ABG O2 Saturation Sodium Chloride Carbon Dioxide Anion Gap BUN Glucose POC Glucose 156 H Alkaline Phosphatase Total Protein Lipase Urine Protein 100 H Urine Glucose (UA) >=500 H Urine Ketones 80 H Urine Bilirubin MODERATE H Urine Urobilinogen 4.0 H Urine Ascorbic Acid 20 H 01/14/18 01/14/18 20:13 21:20 WBC RBC MCV MCH MCHC RDW Plt Count Seg Neutrophils % Lymphocytes % Absolute Neutrophils Carbonic Acid 0.78 L ABG pH 7.31 L ABG pCO2 26.0 L ABG pO2 137.8 H ABG HCO3 12.8 L ABG Total CO2 13.6 L ABG O2 Saturation 98.6 H Sodium 150.3 H Chloride 114 H Carbon Dioxide 11 L Anion Gap 25 H BUN 21 H Glucose 164 H POC Glucose Alkaline Phosphatase 158 H Total Protein 8.7 H Lipase 1477.8 H Urine Protein Urine Glucose (UA) Urine Ketones Urine Bilirubin Urine Urobilinogen Urine Ascorbic Acid Discharge - Discharge Clinical Impression: Metabolic acidosis Pancreatitis Qualifiers: Chronicity: acute Pancreatitis type: unspecified pancreatitis type Acute pancreatitis complication: unspecified Qualified Code(s): K85.90 - Acute pancreatitis without necrosis or infection, unspecified Condition: Stable Disposition: ADMITTED INPATIENT Admitting Provider: Hospitalist Unit Admitted: IMCU Referrals: JORY CARRASCO DO [Primary Care Provider] - Follow up as needed
[2018-01-14 20:20] LABS: ABSOLUTE BASOPHILS # (AUTO) 0.1 10^3/uL (0.0-0.2); ABSOLUTE LYMPHOCYTES (AUTO) 1.5 10^3/uL (0.5-4.7); ABSOLUTE NEUT (AUTO) 13.1 10^3/uL (1.7-8.2); BASOPHILS % (AUTO) 0.5 % (0-2); EOSINOPHILS % (AUTO) 0.1 % (0-6); HEMATOCRIT 43.5 % (36.0-47.0); HEMOGLOBIN 13.3 g/dL (12.0-15.5); LYMPHOCYTES % (AUTO) 9.5 % (13-45); MEAN CORPUSCULAR HEMOGLOBIN 23.7 pg (27.0-33.4); MEAN CORPUSCULAR HGB CONC 30.6 g/dL (32.0-36.0); MEAN CORPUSCULAR VOLUME 77 fl (80-97); MONOCYTES % (AUTO) 6.7 % (3-13); PLATELET COUNT 547 10^3/uL (150-450); RED BLOOD COUNT 5.62 10^6/uL (3.72-5.28); RED CELL DISTRIBUTION WIDTH 17.6 % (11.5-14.0); SEGMENTED NEUTROPHILS % (AUTO) 83.2 % (42-78); TOTAL CELLS COUNTED % (AUTO) 100 %; WHITE BLOOD COUNT 15.7 10^3/uL (4.0-10.5)
[2018-01-14 20:28] LABS: APPEARANCE,URINE CLOUDY; BILIRUBIN,URINE MODERATE (NEGATIVE); COLOR,URINE AMBER; GLUCOSE, URINE >=500 mg/dL (NEGATIVE); KETONES,URINE 80 mg/dL (NEGATIVE); LEUKOCYTE ESTERASE,URINE NEGATIVE (NEGATIVE); NITRITE,URINE NEGATIVE (NEGATIVE); PROTEIN,URINE 100 mg/dL (NEGATIVE)
[2018-01-14 20:41] LABS: URINE AMPHETAMINES SCREEN NEGATIVE; URINE BARBITURATES SCREEN NEGATIVE; URINE BENZODIAZEPINES SCREEN NEGATIVE; URINE COCAINE SCREEN NEGATIVE; URINE MARIJUANA (THC) SCREEN NEGATIVE; URINE METHADONE SCREEN NEGATIVE; URINE PHENCYCLIDINE SCREEN NEGATIVE
[2018-01-14] MEDS ORDERED: KETOROLAC TROMETHAMINE INJ/PF 30 MG/1 ML SDV IV ONE (20:41)
[2018-01-14 20:46] LABS: ALANINE AMINOTRANSFERASE 21 U/L (9-52); ALBUMIN 4.7 g/dL (3.5-5.0); ALKALINE PHOSPHATASE 158 U/L (38-126); ASPARTATE AMINO TRANSFERASE 28 U/L (14-36); BILIRUBIN,DIRECT 0.4 mg/dL (0.0-0.4); BILIRUBIN,TOTAL 0.4 mg/dL (0.2-1.3); BLOOD UREA NITROGEN 21 mg/dL (7-20); CALCIUM 10.2 mg/dL (8.4-10.2); CARBON DIOXIDE 11 mmol/L (22-30); GLUCOSE 164 mg/dL (75-110); LIPASE 1477.8 U/L (23-300); POTASSIUM 4.4 mmol/L (3.6-5.0); TOTAL PROTEIN 8.7 g/dL (6.3-8.2)
[2018-01-14 20:51] LABS: CHLORIDE 114 mmol/L (98-107); SODIUM 150.3 mmol/L (137-145)
[2018-01-14 20:52] LABS: ANION GAP 25 (5-19)
[2018-01-14 21:38] LABS: ARTERIAL BLOOD BASE EXCESS -11.9 mmol/L; ARTERIAL BLOOD H2CO3 0.78 mmol/L (1.05-1.35); ARTERIAL BLOOD HCO3 12.8 mmol/L (20-26); ARTERIAL BLOOD O2 SATURATION 98.6 % (94-98); ARTERIAL BLOOD PH 7.31 (7.35-7.45); ARTERIAL BLOOD PO2 137.8 mmHg (80-100); ARTERIAL BLOOD TOTAL CO2 13.6 mmol/L (21-25)
--- NOTE | 2018-01-14 21:38 | RADIOLOGY REPORT (SQ) ---
EXAM DESCRIPTION: ABDOMEN 2 VIEWS COMPLETED DATE/TIME: 01/14/2018 8:45 pm REASON FOR STUDY: abdominal pain COMPARISON: None. NUMBER OF VIEWS: Two views. TECHNIQUE: Supine and erect/decubitus radiographic images of the abdomen acquired. LIMITATIONS: None. FINDINGS: FREE AIR: None. LUNG BASES: Clear. BOWEL GAS PATTERN: Nonspecific bowel gas pattern. CALCIFICATIONS: No suspicious calcifications. SOFT TISSUES: No gross mass or suggestion of organomegaly. HARDWARE: Suture material noted at the pelvis. BONES: No acute findings. IMPRESSION: Nonspecific bowel gas pattern. TECHNICAL DOCUMENTATION: JOB ID: [id number] 2010 [employer]- All Rights Reserved Reading location - IP/workstation name: [email or web address]
[2018-01-14 21:39] LABS: ARTERIAL BLOOD FIO2 ROOM AIR
[2018-01-14] MEDS ORDERED: GLUCAGON,HUMAN RECOMB 1 MG INJ IM PRN (22:21)
[2018-01-14] MEDS ORDERED: DEXTROSE 40% GEL 15 GM TUBE PO PRN ×2 (22:21)
[2018-01-14] MEDS ORDERED: POTASSI CL 20 MEQ/D5-1/2NS 1L 1,000 ML IV PRN (22:21)
[2018-01-14] MEDS ORDERED: DEXTROSE 50%-WATER 25 GM/50 ML DISP.SYRIN IV PRN ×2 (22:21)
[2018-01-14] MEDS ORDERED: NORMAL SALINE 100 ML with INSULIN REGULAR, HUMAN 100 UNIT IV PRN ×2 (22:21)
[2018-01-14] MEDS ORDERED: IPRATROPIUM/ALBUTEROL 0.5-2.5 MG/3 ML AMPUL NEB PRN (22:22)
[2018-01-14] MEDS ORDERED: ACETAMINOPHEN 325 MG TABLET PO PRN (22:22)
[2018-01-14] MEDS ORDERED: ONDANSETRON HCL INJ/PF 4 MG/2 ML SDV IV PRN (22:22)
[2018-01-14] MEDS ORDERED: KETOROLAC TROMETHAMINE INJ/PF 30 MG/1 ML SDV IV PRN (22:25)
[2018-01-14] MEDS ORDERED: THIAMINE HCL INJ 200 MG/2 ML VIAL IV PRN (22:32)
[2018-01-14] MEDS ORDERED: FOLIC ACID INJ 5 MG/1 ML 10 ML VIAL IV PRN (22:33)
[2018-01-14] MEDS ORDERED: THIAMINE HCL INJ 200 MG/2 ML VIAL ONE (22:51)
[2018-01-15 00:09] LABS: ANION GAP 16 (5-19); BLOOD UREA NITROGEN 20 mg/dL (7-20); CALCIUM 8.8 mg/dL (8.4-10.2); CARBON DIOXIDE 11 mmol/L (22-30); CHLORIDE 120 mmol/L (98-107); GLUCOSE 159 mg/dL (75-110); POTASSIUM 4.7 mmol/L (3.6-5.0)
[2018-01-15 04:10] LABS: ANION GAP 15 (5-19); BLOOD UREA NITROGEN 19 mg/dL (7-20); CALCIUM 8.6 mg/dL (8.4-10.2); CARBON DIOXIDE 13 mmol/L (22-30); CHLORIDE 120 mmol/L (98-107); GLUCOSE 207 mg/dL (75-110); POTASSIUM 4.3 mmol/L (3.6-5.0); SODIUM 147.8 mmol/L (137-145)
--- NOTE | 2018-01-15 05:22 | PDOC H&P ---
History of Present Illness Admission Date/PCP: 01/14/18 22:41 JORY CARRASCO DO Patient complains of: Abdominal pain and nausea History of Present Illness: RUMA HUTIRON is a 22 year old female with a past medical history of type 1 diabetes, bipolar disorder, noncompliance episodic alcohol use, recurrent admission for diabetic ketoacidosis and alcohol-related pancreatitis. Patient has had indiscretion consumption of alcohol resulting in abdominal pain nausea vomiting without blood prompting to seek evaluation emergency room where she is found to have diabetic ketoacidosis and acute alcoholic pancreatitis. She receives symptomatic management, IV fluids and insulin and referred to the hospitalist for admission. Past Medical History Endocrine Medical History: Reports: Diabetes Mellitus Type 1 GI Medical History: Reports: Other - Pancreatitis Psychiatric Medical History: Reports: Bipolar Disorder, Depression Hematology: Reports: None Infectious Medical History: Reports: None Past Surgical History Past Surgical History: Reports: None Social History Information Source: Patient, [facility] Records Smoking Status: Never Smoker Frequency of Alcohol Use: Occasional Hx Recreational Drug Use: No Drugs: None Hx Prescription Drug Abuse: No - Advance Directive Resuscitation Status: Full Code Family History Family History: Hypertension Parental Family History Reviewed: Yes Children Family History Reviewed: Yes Sibling(s) Family History Reviewed.: Yes Medication/Allergy Home Medications: Gabapentin [Neurontin] 600 mg PO BID@1400,2200 10/22/17 Insulin Detemir [Levemir Flextouch] 26 units SQ Q12 #1 insuln.pen 10/26/17 Insulin Lispro [Humalog Kwikpen U-100] 8 units SQ MEALS #1 insuln.pen 10/26/17 Fluconazole [Diflucan] 150 mg PO ONCEP PRN #1 tablet 12/24/17 Gabapentin [Neurontin 300 mg Capsule] 300 mg PO Q6AM 12/24/17 Metronidazole [Flagyl 500 mg Tablet] 500 mg PO BID #28 tablet 12/24/17 Ondansetron [Zofran Odt 4 mg Tablet] 1 tab PO Q8HP PRN #10 tab.rapdis 12/24/17 Allergies/Adverse Reactions: bupropion [From Wellbutrin] Allergy (Verified 01/14/18 19:03) diphenhydramine [From Benadryl] Allergy (Verified 01/14/18 19:03) Penicillins Allergy (Verified 01/14/18 19:03) Review of Systems Constitutional: PRESENT: as per HPI, anorexia, fatigue, weakness, weight loss. ABSENT: fever(s) Eyes: ABSENT: visual disturbances Ears: ABSENT: hearing changes Cardiovascular: ABSENT: chest pain, dyspnea on exertion, edema, orthropnea, palpitations Respiratory: ABSENT: cough, hemoptysis Gastrointestinal: PRESENT: as per HPI, abdominal pain, bloating, nausea, vomiting. ABSENT: diarrhea, dysphagia, heartburn Genitourinary: ABSENT: dysuria, hematuria Musculoskeletal: ABSENT: joint swelling Integumentary: ABSENT: rash, wounds Neurological: ABSENT: abnormal gait, abnormal speech, confusion, dizziness, focal weakness, syncope Psychiatric: ABSENT: anxiety, depression, homidical ideation, suicidal ideation Endocrine: PRESENT: polydipsia, polyuria. ABSENT: cold intolerance, heat intolerance Hematologic/Lymphatic: ABSENT: easy bleeding, easy bruising Physical Exam Vital Signs: Temp Pulse Resp BP Pulse Ox 98.2 F 92 16 100/67 100 01/15/18 03:35 01/15/18 03:48 01/15/18 03:35 01/15/18 03:35 01/15/18 03:35 Intake & Output 01/13/18 01/14/18 01/15/18 11:59 11:59 11:59 Weight 65.7 kg General appearance: PRESENT: cooperative, mild distress, thin Head exam: PRESENT: atraumatic, normocephalic Eye exam: PRESENT: conjunctiva pink, EOMI, PERRLA. ABSENT: scleral icterus Ear exam: PRESENT: normal external ear exam Mouth exam: PRESENT: dry mucosa. ABSENT: laceration, moist Neck exam: ABSENT: carotid bruit, JVD, lymphadenopathy, thyromegaly Respiratory exam: PRESENT: clear to auscultation lam, tachypnea. ABSENT: rales , rhonchi, wheezes Cardiovascular exam: PRESENT: RRR, tachycardia. ABSENT: diastolic murmur, rubs , systolic murmur Pulses: PRESENT: normal dorsalis pedis pul Vascular exam: PRESENT: normal capillary refill GI/Abdominal exam: PRESENT: normal bowel sounds, soft. ABSENT: distended, guarding, mass, organolmegaly, rebound, tenderness Rectal exam: PRESENT: deferred Extremities exam: PRESENT: full ROM. ABSENT: calf tenderness, clubbing, pedal edema Neurological exam: PRESENT: alert, awake, oriented to person, oriented to place , oriented to time, oriented to situation, CN II-XII grossly intact. ABSENT: motor sensory deficit Psychiatric exam: PRESENT: appropriate affect, normal mood. ABSENT: homicidal ideation, suicidal ideation Skin exam: PRESENT: dry, intact, warm. ABSENT: cyanosis, rash Results Laboratory Results: 01/15/18 03:22 01/14/18 01/15/18 23:28 03:22 Sodium 147.0 H 147.8 H Potassium 4.7 4.3 Chloride 120 H 120 H Carbon Dioxide 11 L 13 L Anion Gap 16 15 BUN 20 19 Creatinine 0.53 0.57 Est GFR ( Amer) > 60 > 60 Est GFR (Non-Af Amer) > 60 > 60 Glucose 159 H 207 H Calcium 8.8 8.6 Impressions: Abdomen X-Ray 01/14/18 19:22 IMPRESSION: Nonspecific bowel gas pattern. Assessment & Plan - Diagnosis (1) DKA (diabetic ketoacidoses) Is this a current diagnosis for this admission?: Yes Plan: Diabetic ketoacidosis patient has had some degree of polyuria polydipsia with nausea and uncontrolled hyperglycemia with supporting labs. Patient will receive IV fluids IV insulin serial chemistries every 6 hours for evaluation for electrolyte repletion. Continued evaluation for underlying cause if not found Patient will require diabetic education and consideration of mental health evaluation. (2) Pancreatitis Qualifiers: Chronicity: acute Pancreatitis type: unspecified pancreatitis type Acute pancreatitis complication: unspecified Qualified Code(s): K85.90 - Acute pancreatitis without necrosis or infection, unspecified Is this a current diagnosis for this admission?: Yes Plan: Secondary to alcohol, cessation education. Bowel rest (3) Abdominal pain Is this a current diagnosis for this admission?: Yes Plan: Secondary to #2 bowel rest, advance diet as anion gap closes and when tolerated without need of analgesia - Time Time Spent: 30 to 50 Minutes
[2018-01-15] MEDS ORDERED: INSULIN REG, HUMAN 100 UNIT/ML 3 ML VIAL (PYX) ONE (05:41)
[2018-01-15] MEDS: HEPARIN SOD (PORCINE) 5,000 UNIT/ML 1 ML SYRINGE SUBCUT SCH ×3 (06:48→22:38)
[2018-01-15 08:28] LABS: HEMATOCRIT 30.8 % (36.0-47.0); MEAN CORPUSCULAR HEMOGLOBIN 24.6 pg (27.0-33.4); MEAN CORPUSCULAR HGB CONC 31.8 g/dL (32.0-36.0); MEAN CORPUSCULAR VOLUME 77 fl (80-97); PLATELET COUNT 387 10^3/uL (150-450); RED BLOOD COUNT 3.98 10^6/uL (3.72-5.28); RED CELL DISTRIBUTION WIDTH 17.6 % (11.5-14.0)
[2018-01-15 08:29] LABS: HEMOGLOBIN 9.8 g/dL (12.0-15.5)
[2018-01-15 08:43] LABS: ANION GAP 13 (5-19); BLOOD UREA NITROGEN 18 mg/dL (7-20); CALCIUM 8.8 mg/dL (8.4-10.2); CARBON DIOXIDE 13 mmol/L (22-30); CHLORIDE 120 mmol/L (98-107); GLUCOSE 217 mg/dL (75-110); LIPASE 1121.2 U/L (23-300); SODIUM 146.3 mmol/L (137-145)
[2018-01-15] MEDS ORDERED: NORMAL SALINE 1000 ML 1,000 ML IV PRN ×2 (10:38→16:58)
[2018-01-15] MEDS ORDERED: INSULIN DETEMIR 100 UNIT/ML 3 ML PEN SUBCUT ONE (11:30)
[2018-01-15 12:29] LABS: ANION GAP 9 (5-19); BLOOD UREA NITROGEN 17 mg/dL (7-20); CALCIUM 8.7 mg/dL (8.4-10.2); CARBON DIOXIDE 17 mmol/L (22-30); CHLORIDE 122 mmol/L (98-107); GLUCOSE 88 mg/dL (75-110); POTASSIUM 3.9 mmol/L (3.6-5.0); SODIUM 148.3 mmol/L (137-145)
[2018-01-15] MEDS: GABAPENTIN 300 MG CAPSULE PO SCH (14:18)
[2018-01-15] MEDS: THIAMINE HCL 100 MG, FOLIC ACID 1 MG in NORMAL SALINE 250 ML IV SCH (14:18)
[2018-01-15 15:56] LABS: ANION GAP 10 (5-19); BLOOD UREA NITROGEN 15 mg/dL (7-20); CALCIUM 8.8 mg/dL (8.4-10.2); CARBON DIOXIDE 17 mmol/L (22-30); CHLORIDE 122 mmol/L (98-107); GLUCOSE 88 mg/dL (75-110); POTASSIUM 3.8 mmol/L (3.6-5.0); SODIUM 149.3 mmol/L (137-145)
--- NOTE | 2018-01-15 17:12 | PDOC PROGRESS REPORT ---
Subjective Progress Note for:: 01/15/18 Subjective:: The patient is a 22-year-old female with past medical history significant for type 1 diabetes mellitus, recurrent episodes of DKA, alcohol abuse, and noncompliance who was admitted on 01/15/18 for alcoholic pancreatitis and DKA. Patient is seen on morning rounds. She found resting in bed comfortably on room air. She tells me that she is feeling well other than being fatigued. She denies fever, chills, headache, nausea and vomiting. She does report mild abdominal pain, however, has not required pain medication or antiemetics since early this morning. She also reports a return of her appetite is requesting to drink fluids and advance to a clear liquid diet. Reason For Visit: PANCREATITIS, METABOLIC ACIDOSIS Physical Exam Vital Signs: Temp Pulse Resp BP Pulse Ox 97.9 F 87 16 102/66 98 01/15/18 11:39 01/15/18 14:52 01/15/18 14:52 01/15/18 11:39 01/15/18 14:52 Intake & Output 01/14/18 01/15/18 01/16/18 06:59 06:59 06:59 Intake Total 310 0 Balance 310 0 Weight 65.7 kg General appearance: PRESENT: no acute distress, well-developed, well-nourished Head exam: PRESENT: atraumatic, normocephalic Eye exam: PRESENT: conjunctiva pink, EOMI, PERRLA. ABSENT: scleral icterus Ear exam: PRESENT: normal external ear exam Mouth exam: PRESENT: moist, tongue midline Neck exam: ABSENT: carotid bruit, JVD, lymphadenopathy, thyromegaly Respiratory exam: PRESENT: clear to auscultation lam. ABSENT: rales, rhonchi, wheezes Cardiovascular exam: PRESENT: RRR. ABSENT: diastolic murmur, rubs, systolic murmur Pulses: PRESENT: normal dorsalis pedis pul Vascular exam: PRESENT: normal capillary refill GI/Abdominal exam: PRESENT: normal bowel sounds, soft, tenderness - Epigastric. ABSENT: distended, guarding, mass, organolmegaly, rebound Rectal exam: PRESENT: deferred Extremities exam: PRESENT: full ROM. ABSENT: calf tenderness, clubbing, pedal edema Neurological exam: PRESENT: alert, awake, oriented to person, oriented to place , oriented to time, oriented to situation, CN II-XII grossly intact. ABSENT: motor sensory deficit Psychiatric exam: PRESENT: appropriate affect, normal mood. ABSENT: homicidal ideation, suicidal ideation Skin exam: PRESENT: dry, intact, warm. ABSENT: cyanosis, rash Results Laboratory Results: 01/15/18 07:36 01/14/18 01/15/18 01/15/18 23:28 03:22 07:36 WBC RBC Hgb Hct MCV MCH MCHC RDW Plt Count Sodium 147.0 H 147.8 H 146.3 H Potassium 4.7 4.3 4.0 Chloride 120 H 120 H 120 H Carbon Dioxide 11 L 13 L 13 L Anion Gap 16 15 13 BUN 20 19 18 Creatinine 0.53 0.57 0.52 Est GFR ( Amer) > 60 > 60 > 60 Est GFR (Non-Af Amer) > 60 > 60 > 60 Glucose 159 H 207 H 217 H Calcium 8.8 8.6 8.8 Lipase 1121.2 H 01/15/18 01/15/18 07:36 11:50 WBC 8.0 RBC 3.98 Hgb 9.8 L D Hct 30.8 L MCV 77 L MCH 24.6 L MCHC 31.8 L RDW 17.6 H Plt Count 387 Sodium 148.3 H Potassium 3.9 Chloride 122 H Carbon Dioxide 17 L Anion Gap 9 BUN 17 Creatinine 0.50 L Est GFR ( Amer) > 60 Est GFR (Non-Af Amer) > 60 Glucose 88 Calcium 8.7 Lipase Impressions: Abdomen X-Ray 01/14/18 19:22 IMPRESSION: Nonspecific bowel gas pattern. Assessment & Plan - Diagnosis (1) DKA (diabetic ketoacidoses) Is this a current diagnosis for this admission?: Yes Plan: The patient was admitted with diabetic ketoacidosis with complaint of polyuria, polydipsia, nausea, and uncontrolled hyperglycemia. Anion gap is closed, Bicarb is trending up, potassium is normal. The patient was admitted to [facility] on continuous cardiac telemetry. She was aggressively resuscitated with IV fluids. She was initially placed on an insulin drip which has subsequently been transitioned to her home dose subcutaneous Levemir. She was initially placed in n.p.o. status but has been advanced to clear liquid diet. Will monitor glucose with Accu-Cheks before meals and at bedtime and provide Humalog for sliding scale coverage. We will ask the registered dietitian and nurses educator to meet with patient. (2) Pancreatitis Qualifiers: Chronicity: acute Pancreatitis type: unspecified pancreatitis type Acute pancreatitis complication: unspecified Qualified Code(s): K85.90 - Acute pancreatitis without necrosis or infection, unspecified Is this a current diagnosis for this admission?: Yes Plan: Improving; lipase is trending down, nausea and abdominal pain have improved. Secondary to alcohol abuse. The patient is receiving aggressive IV fluid rehydration. She was initially placed in n.p.o. status; have advanced to clear liquid diet. Antiemetics and p.o. analgesics as needed. If the patient tolerates clear liquids, may consider discharge in the morning. (3) Abdominal pain Is this a current diagnosis for this admission?: Yes Plan: Resolved. Secondary to pancreatitis and complicated by DKA. As needed Tylenol for pain. Advancing to clear liquid diet. (4) Anemia Qualifiers: Anemia type: unspecified type Qualified Code(s): D64.9 - Anemia, unspecified Is this a current diagnosis for this admission?: Yes Plan: The patient appears to have chronic anemia when reviewing previous lab results. This is likely secondary to poor nutrition and alcohol abuse. Has trended down somewhat with aggressive IV fluid rehydration. No evidence of active bleeding. Registered dietitian consultation has been ordered. We will continue to monitor. (5) Alcohol abuse Is this a current diagnosis for this admission?: Yes Plan: The importance of discontinuing alcohol intake given her frequent episodes of DKA and Pancreatitis is reviewed with the patient. The patient is provided folic and thiamine supplementation. Supported with IV fluids. Ativan as needed anxiety, agitation, withdrawal symptoms. Discharge planning has been consulted. - Time Time Spent with patient: 15-24 minutes Medications reviewed and adjusted accordingly: Yes Anticipated discharge: Home Within: within 24 hours
[2018-01-15] MEDS: INSULIN DETEMIR 100 UNIT/ML 3 ML PEN SUBCUT SCH (21:52)
[2018-01-15] MEDS: INSULIN LISPRO 100 UNIT/ML 3 ML VIAL SUBCUT PRN (21:52)
[2018-01-15] MEDS: LORAZEPAM INJ 2 MG/1 ML VIAL IV PRN (21:53)
[2018-01-15] MEDS: CARVEDILOL 3.125 MG TABLET PO SCH (21:53)
[2018-01-16] MEDS: LORAZEPAM INJ 2 MG/1 ML VIAL IV PRN (05:45)
[2018-01-16] MEDS: HEPARIN SOD (PORCINE) 5,000 UNIT/ML 1 ML SYRINGE SUBCUT SCH ×2 (05:45→13:34)
[2018-01-16 08:13] LABS: HEMATOCRIT 30.6 % (36.0-47.0); HEMOGLOBIN 9.6 g/dL (12.0-15.5); MEAN CORPUSCULAR HEMOGLOBIN 23.9 pg (27.0-33.4); MEAN CORPUSCULAR HGB CONC 31.3 g/dL (32.0-36.0); MEAN CORPUSCULAR VOLUME 76 fl (80-97); PLATELET COUNT 334 10^3/uL (150-450); RED BLOOD COUNT 4.01 10^6/uL (3.72-5.28); RED CELL DISTRIBUTION WIDTH 17.6 % (11.5-14.0); WHITE BLOOD COUNT 5.8 10^3/uL (4.0-10.5)
[2018-01-16 08:34] LABS: ANION GAP 11 (5-19); BLOOD UREA NITROGEN 5 mg/dL (7-20); CALCIUM 8.7 mg/dL (8.4-10.2); CARBON DIOXIDE 17 mmol/L (22-30); CHLORIDE 116 mmol/L (98-107); GLUCOSE 80 mg/dL (75-110); LIPASE 100.1 U/L (23-300); POTASSIUM 3.4 mmol/L (3.6-5.0); SODIUM 143.8 mmol/L (137-145)
[2018-01-16] MEDS: GABAPENTIN 300 MG CAPSULE PO SCH ×2 (08:49→11:12)
[2018-01-16] MEDS: INSULIN DETEMIR 100 UNIT/ML 3 ML PEN SUBCUT SCH (11:11)
[2018-01-16] MEDS: THIAMINE HCL 100 MG, FOLIC ACID 1 MG in NORMAL SALINE 250 ML IV SCH (11:12)
[2018-01-16] MEDS: CARVEDILOL 3.125 MG TABLET PO SCH (11:12)
[2018-01-16] MEDS ORDERED: POTASSIUM CHLORIDE 10 MEQ TABLET.SA PO ONE (12:00)
[2018-01-16] MEDS: INSULIN LISPRO 100 UNIT/ML 3 ML VIAL SUBCUT PRN (12:27)
[2018-01-16 13:25] VITALS: BP 113/68
--- NOTE | 2018-01-16 21:07 | PDOC DISCHARGE SUMMARY ---
General - Admit/Disc Date/PCP Admission Date/Primary Care Provider: 01/14/18 22:41 JORY CARRASCO, Discharge Date: 01/16/18 - Discharge Diagnosis (1) DKA (diabetic ketoacidoses) Is this a current diagnosis for this admission?: Yes (2) Pancreatitis Is this a current diagnosis for this admission?: Yes (3) Abdominal pain Is this a current diagnosis for this admission?: Yes (4) Anemia Is this a current diagnosis for this admission?: Yes (5) Alcohol abuse Is this a current diagnosis for this admission?: Yes - Additional Information Resuscitation Status: Full Code Discharge Diet: Diabetic Discharge Activity: Activity As Tolerated Prescriptions: Insulin Detemir [Levemir Flextouch] 28 units SQ Q12 #1 insuln.pen Insulin Lispro [Humalog Insulin (Lispro) 100 unit/mL] 0 - 12 unit SUBCUT ACHSP PRN #1 vial PRN Reason: Home Medications: Carvedilol [Coreg 3.125 mg Tablet] 3.125 mg PO Q12 01/15/18 Gabapentin [Neurontin 300 mg Capsule] 300 mg PO DAILY@08,12 01/15/18 Gabapentin [Neurontin 300 mg Capsule] 600 mg PO QHS 01/15/18 Acetaminophen [Tylenol 325 mg Tablet] 650 mg PO Q4HP PRN tablet 01/16/18 Insulin Detemir [Levemir Flextouch] 28 units SQ Q12 #1 insuln.pen 01/16/18 Insulin Lispro [Humalog Insulin (Lispro) 100 unit/mL] 0 - 12 unit SUBCUT ACHSP PRN #1 vial 01/16/18 History of Present Illness History of Present Illness: Per H&P by Dr. Jones: RUMA HUITRON is a 22 year old female with a past medical history of type 1 diabetes, bipolar disorder, noncompliance episodic alcohol use, recurrent admission for diabetic ketoacidosis and alcohol-related pancreatitis. Patient has had indiscretion consumption of alcohol resulting in abdominal pain nausea vomiting without blood prompting to seek evaluation emergency room where she is found to have diabetic ketoacidosis and acute alcoholic pancreatitis. She receives symptomatic management, IV fluids and insulin and referred to the hospitalist for admission. Hospital Course Hospital Course: The patient was admitted with DKA and pancreatitis. She was placed on continuous cardiac telemetry and serial chemistries were monitored. She was initially placed in npo status and was provided aggressive IV fluid hydration. An insulin drip was initiated with subsequent closing of her ion gap. She was transitioned to subcutaneous insulin; resuming her home dosed Levemir with Humalog for sliding scale coverage. Her abdominal pain and nausea had resolved by the following morning. She was placed on a clear liquid diet and advanced as tolerated. Her glucose remained adequately controlled. At time of discharge, the patient was in stable condition, pain and nausea free , and tolerating a regular diet with a normalized lipase, glucose, and electrolytes. She was recommended to continue drinking plenty of water and to avoid all alcohol intake. She was provided renewed prescriptions for both Levemir and Humalog. She is instructed to follow up with her primary care provider within 1 week. Physical Exam Vital Signs: Temp Pulse Resp BP Pulse Ox 98.1 F 77 14 113/68 100 01/16/18 13:23 01/16/18 13:23 01/16/18 13:23 01/16/18 13:23 01/16/18 13:23 Intake & Output 01/15/18 01/16/18 01/17/18 06:59 06:59 06:59 Intake Total 310 6224 Balance 310 6224 Weight 65.7 kg 70.1 kg 70.1 kg General appearance: PRESENT: no acute distress, well-developed, well-nourished Head exam: PRESENT: atraumatic, normocephalic Eye exam: PRESENT: conjunctiva pink, EOMI, PERRLA. ABSENT: scleral icterus Ear exam: PRESENT: normal external ear exam Mouth exam: PRESENT: moist, tongue midline Neck exam: ABSENT: carotid bruit, JVD, lymphadenopathy, thyromegaly Respiratory exam: PRESENT: clear to auscultation lam. ABSENT: rales, rhonchi, wheezes Cardiovascular exam: PRESENT: RRR. ABSENT: diastolic murmur, rubs, systolic murmur Vascular exam: PRESENT: normal capillary refill GI/Abdominal exam: PRESENT: normal bowel sounds, soft. ABSENT: distended, guarding, mass, organolmegaly, rebound, tenderness Rectal exam: PRESENT: deferred Extremities exam: PRESENT: full ROM. ABSENT: calf tenderness, clubbing, pedal edema Musculoskeletal exam: PRESENT: ambulatory Neurological exam: PRESENT: alert, awake, oriented to person, oriented to place , oriented to time, oriented to situation, CN II-XII grossly intact. ABSENT: motor sensory deficit Psychiatric exam: PRESENT: appropriate affect, normal mood. ABSENT: homicidal ideation, suicidal ideation Skin exam: PRESENT: dry, intact, warm. ABSENT: cyanosis, rash Results Laboratory Results: 01/16/18 07:37 01/16/18 07:37 01/16/18 01/16/18 07:37 07:37 WBC 5.8 RBC 4.01 Hgb 9.6 L Hct 30.6 L MCV 76 L MCH 23.9 L MCHC 31.3 L RDW 17.6 H Plt Count 334 Sodium 143.8 Potassium 3.4 L Chloride 116 H Carbon Dioxide 17 L Anion Gap 11 BUN 5 L Creatinine 0.40 L Est GFR ( Amer) > 60 Est GFR (Non-Af Amer) > 60 Glucose 80 Calcium 8.7 Lipase 100.1 Impressions: Abdomen X-Ray 01/14/18 19:22 IMPRESSION: Nonspecific bowel gas pattern. Qualifiers - * PATIENT BEING DISCHARGED WITH ANY OF THE FOLLOWING DIAGNOSIS: No Plan Discharge Plan: Patient is discharged to home with self care. Follow up with primary care provider within 1 week. Discharge Planning to follow up with arrangements for [employer] General Supervisor support.
[2018-01-17] MEDS ORDERED: POTASSIUM CHLORIDE 10 MEQ TABLET.SA PO SCH (10:00)
== END 2018-01-16 15:52 | disposition home or self-care (01) | DRG 637 ==
LOC: ER 18:35 → EH 22:41 → 3S 01-15 03:35
PROVIDERS: ADMIT Internal Medicine; ATTEND Internal Medicine
DX: E10.10 Type 1 diabetes mellitus with ketoacidosis without coma (principal); K85.90 Acute pancreatitis without necrosis or infection, unspecified; D64.9 Anemia, unspecified; F31.9 Bipolar disorder, unspecified; F17.210 Nicotine dependence, cigarettes, uncomplicated; F10.10 Alcohol abuse, uncomplicated; Y90.9 Presence of alcohol in blood, level not specified; Z91.19 Patient's noncompliance with other medical treatment and regimen; Z79.4 Long term (current) use of insulin; Z79.899 Other long term (current) drug therapy
CPT/HCPCS: 36415; 36600; 74019; 80048; 80053; 80307; 81001; 81025; 82803; 82962; 83690; 83735; 84100; 85025; 85027; 96361; 96374; 96375; 99285; J1815; J1885; J2060; J2405; J2550; J3411; J3480; J3490; J7030; J7050

== ENCOUNTER 2018-02-05 00:56 | Inpatient (IN) | payer MEDICAID ==
--- NOTE | 2018-02-05 01:30 | ER Document Report ---
ED General - General Chief Complaint: Abdominal Pain Stated Complaint: BLOOD SUGAR ISSUES Time Seen by Provider: 02/05/18 01:27 Notes: Patient is a 22-year-old female, past medical history noncompliant type I diabetic, frequent episodes of DKA, bipolar, alcoholic pancreatitis, presents with bilateral epigastric abdominal pain and hyperglycemia. She did not take her insulin for the past 2 days because of her abdominal pain. She was found to have blood sugar 530 by EMS prior to arrival and she was given 500 mL NS by EMS prior to arrival. She denies hematemesis, active vomiting, diarrhea, constipation, chest pain, shortness of breath or dysuria. TRAVEL OUTSIDE OF THE [place] IN LAST 30 DAYS: No - Related Data Allergies/Adverse Reactions: bupropion [From Wellbutrin] Allergy (Verified 01/14/18 19:03) diphenhydramine [From Benadryl] Allergy (Verified 01/14/18 19:03) Penicillins Allergy (Verified 01/14/18 19:03) Past Medical History - General Information source: Patient - Social History Smoking Status: Unknown if Ever Smoked Family History: Hypertension Endocrine Medical History: Reports: Hx Diabetes Mellitus Type 1 Renal/ Medical History: Denies: Hx Peritoneal Dialysis Psychiatric Medical History: Reports: Hx Bipolar Disorder, Hx Depression Review of Systems - Review of Systems Notes: REVIEW OF SYSTEMS: CONSTITUTIONAL: -fevers, -chills EENT: -eye pain, -difficulty swallowing, -nasal congestion CARDIOVASCULAR: -chest pain, -syncope. RESPIRATORY: -cough, -SOB GASTROINTESTINAL: +epigastric abdominal pain, +nausea, -vomiting, -diarrhea GENITOURINARY: +polyuria, -dysuria, -hematuria MUSCULOSKELETAL: -back pain, -neck pain SKIN: -rash or skin lesions. HEMATOLOGIC: -easy bruising or bleeding. LYMPHATIC: -swollen, enlarged glands. NEUROLOGICAL: -altered mental status or loss of consciousness, -headache, - neurologic symptoms PSYCHIATRIC: -anxiety, -depression. ALL OTHER SYSTEMS REVIEWED AND NEGATIVE. Physical Exam - Vital signs Vitals: Resp Pulse Ox 18 99 02/05/18 02:44 02/05/18 02:44 - Notes Notes: PHYSICAL EXAMINATION: GENERAL: Uncomfortable. HEAD: Atraumatic, normocephalic. EYES: Pupils equal round and reactive to light, extraocular movements intact, sclera anicteric, conjunctiva are normal. ENT: nares patent, oropharynx clear without exudates. Moist mucous membranes. NECK: Normal range of motion, supple without lymphadenopathy LUNGS: Breath sounds clear to auscultation bilaterally and equal. No wheezes rales or rhonchi. HEART: Tachycardia, regular rhythm. ABDOMEN: Soft, moderate epigastric tenderness, normoactive bowel sounds. No guarding, no rebound. No masses appreciated. EXTREMITIES: Normal range of motion, no pitting or edema. No cyanosis. NEUROLOGICAL: Cranial nerves grossly intact. Normal speech, normal gait. Normal sensory and motor exams. PSYCH: Normal mood, normal affect. SKIN: Warm, Dry, normal turgor, no rashes or lesions noted. Course - Re-evaluation Re-evalutation: Patient with signs and symptoms of her pancreatitis. Lipase is 1300. She also has hyperglycemia with a slight acidosis. Her anion gap is only 16. Provide her with multiple liters of IV fluids and will recheck. Because patient is still having pain even with eating and due to her hyperglycemia and borderline DKA, patient requires admission for further evaluation and treatment. She does not have a PMD. 02/05/18 04:[address] Walker and he has accepted patient to Tele as Inpatient for further evaluation and treatment. - Vital Signs Vital signs: Temp Pulse Resp BP Pulse Ox 18 99 02/05/18 02:44 02/05/18 02:44 - Laboratory Result Diagrams: 02/05/18 02:25 02/05/18 02:25 Laboratory results interpreted by me: 02/05/18 02/05/18 02/05/18 01:06 01:51 02:25 Hgb 10.5 L Hct 34.0 L MCV 77 L MCH 23.7 L MCHC 31.0 L RDW 17.4 H Plt Count 520 H VBG pH VBG HCO3 Carbon Dioxide Creatinine Glucose POC Glucose 497 H* Alkaline Phosphatase Lipase Urine Glucose (UA) >=500 H Urine Ketones 20 H 02/05/18 02/05/18 02:25 03:35 Hgb Hct MCV MCH MCHC RDW Plt Count VBG pH 7.28 L VBG HCO3 18.5 L Carbon Dioxide 17 L Creatinine 0.50 L Glucose 510 H* POC Glucose Alkaline Phosphatase 157 H Lipase 1376.6 H Urine Glucose (UA) Urine Ketones - EKG Interpretation by Me EKG shows normal: Sinus rhythm, Sacul, Intervals, QRS Complexes, ST-T Waves Rate: Normal Discharge - Discharge Clinical Impression: Hyperglycemia Pancreatitis Qualifiers: Chronicity: acute Pancreatitis type: alcohol induced Acute pancreatitis complication: unspecified Qualified Code(s): K85.20 - Alcohol induced acute pancreatitis without necrosis or infection Condition: Stable Disposition: ADMITTED INPATIENT Admitting Provider: Hospitalist [facility] Admitted: Telemetry Referrals: JORY CARRASCO DO [NO LOCAL MD] - Follow up as needed
[2018-02-05] MEDS ORDERED: PANTOPRAZOLE SODIUM 40 MG VIAL IV ONE (01:34)
[2018-02-05 02:09] LABS: APPEARANCE,URINE CLEAR; BILIRUBIN,URINE NEGATIVE (NEGATIVE); COLOR,URINE STRAW; GLUCOSE, URINE >=500 mg/dL (NEGATIVE); KETONES,URINE 20 mg/dL (NEGATIVE); LEUKOCYTE ESTERASE,URINE NEGATIVE (NEGATIVE); NITRITE,URINE NEGATIVE (NEGATIVE); PROTEIN,URINE NEGATIVE (NEGATIVE); URINE SPECIFIC GRAVITY 1.031; UROBILINOGEN,URINE NEGATIVE mg/dL (<2.0)
[2018-02-05 02:29] LABS: URINE AMPHETAMINES SCREEN NEGATIVE; URINE BARBITURATES SCREEN NEGATIVE; URINE BENZODIAZEPINES SCREEN NEGATIVE; URINE COCAINE SCREEN NEGATIVE; URINE MARIJUANA (THC) SCREEN NEGATIVE; URINE METHADONE SCREEN NEGATIVE; URINE PHENCYCLIDINE SCREEN NEGATIVE
[2018-02-05] MEDS: NORMAL SALINE 1000 ML 1,000 ML IV PRN ×2 (02:31→02:32)
[2018-02-05] MEDS ORDERED: HALOPERIDOL LACTATE INJ 5 MG/1 ML VIAL IV ONE (02:35)
[2018-02-05 02:56] LABS: ABSOLUTE BASOPHILS # (AUTO) 0.1 10^3/uL (0.0-0.2); ABSOLUTE EOSINOPHILS # (AUTO) 0.2 10^3/uL (0.0-0.6); ABSOLUTE LYMPHOCYTES (AUTO) 2.1 10^3/uL (0.5-4.7); ABSOLUTE MONOCYTES (AUTO) 0.5 10^3/uL (0.1-1.4); ABSOLUTE NEUT (AUTO) 4.5 10^3/uL (1.7-8.2); BASOPHILS % (AUTO) 1.2 % (0-2); HEMOGLOBIN 10.5 g/dL (12.0-15.5); LYMPHOCYTES % (AUTO) 28.7 % (13-45); MEAN CORPUSCULAR HEMOGLOBIN 23.7 pg (27.0-33.4); MEAN CORPUSCULAR VOLUME 77 fl (80-97); MONOCYTES % (AUTO) 7.3 % (3-13); PLATELET COUNT 520 10^3/uL (150-450); RED BLOOD COUNT 4.43 10^6/uL (3.72-5.28); RED CELL DISTRIBUTION WIDTH 17.4 % (11.5-14.0); SEGMENTED NEUTROPHILS % (AUTO) 59.8 % (42-78); TOTAL CELLS COUNTED % (AUTO) 100 %; WHITE BLOOD COUNT 7.4 10^3/uL (4.0-10.5)
[2018-02-05 03:06] LABS: ALANINE AMINOTRANSFERASE 24 U/L (9-52); ALBUMIN 3.8 g/dL (3.5-5.0); ALKALINE PHOSPHATASE 157 U/L (38-126); ANION GAP 16 (5-19); ASPARTATE AMINO TRANSFERASE 15 U/L (14-36); BILIRUBIN,DIRECT 0.4 mg/dL (0.0-0.4); BILIRUBIN,TOTAL 0.4 mg/dL (0.2-1.3); BLOOD UREA NITROGEN 14 mg/dL (7-20); CALCIUM 9.2 mg/dL (8.4-10.2); CARBON DIOXIDE 17 mmol/L (22-30); CHLORIDE 106 mmol/L (98-107); LIPASE 1376.6 U/L (23-300); POTASSIUM 4.7 mmol/L (3.6-5.0); SODIUM 139.3 mmol/L (137-145); TOTAL PROTEIN 6.6 g/dL (6.3-8.2)
[2018-02-05 03:16] LABS: ALCOHOL < 10 mg/dL (NONE DETECTED)
[2018-02-05 03:18] LABS: GLUCOSE 510 mg/dL (75-110)
[2018-02-05] MEDS ORDERED: MORPHINE SULFATE 10 MG/ML INJ IV ONE (03:34)
[2018-02-05 03:53] LABS: VENOUS BLOOD BASE EXCESS -7.8 mmol/L; VENOUS BLOOD HCO3 18.5 mmol/L (20-32); VENOUS BLOOD PCO2 40.7 mmHg (35-63); VENOUS BLOOD PH 7.28 (7.30-7.42)
[2018-02-05] MEDS ORDERED: NORMAL SALINE 1000 ML 1,000 ML IV PRN ×4 (04:08→20:36)
[2018-02-05] MEDS ORDERED: OXYCODONE-ACETAMINOPHEN 5-325 MG TABLET PO PRN (04:29)
[2018-02-05] MEDS ORDERED: DEXTROSE 40% GEL 15 GM TUBE PO PRN ×4 (04:34→18:45)
[2018-02-05] MEDS ORDERED: GLUCAGON,HUMAN RECOMB 1 MG INJ IM PRN (04:34)
[2018-02-05] MEDS ORDERED: INSULIN LISPRO 100 UNIT/ML 3 ML VIAL SUBCUT PRN (04:34)
[2018-02-05] MEDS ORDERED: DEXTROSE 50%-WATER 25 GM/50 ML DISP.SYRIN IV PRN ×4 (04:34→18:45)
--- NOTE | 2018-02-05 04:48 | PDOC H&P ---
History of Present Illness Admission Date/PCP: 02/05/18 04:26 History of Present Illness: RUMA HUITRON is a 22 year old female sent with past medical history of type 1 diabetes mellitus, recurrent DKA, bipolar disorder, alcohol abuse and alcohol induced pancreatitis presented to us with chief complaint of epigastric pain described as sharp pain radiating to her back. Her initial workup shows markedly elevated lipase of 1376 and hyperglycemia with blood glucose level of 510. Note patient discharged on January 16 after she was treated for DKA. Patient reported that she did not take her insulin for the past 2 days because of her abdominal pain. She denies any nausea, vomiting, diarrhea, chest pain, cough, palpitation, diaphoresis or any urinary complaints. No dizziness headache or blurring of vision. Past Medical History Endocrine Medical History: Reports: Diabetes Mellitus Type 1 Psychiatric Medical History: Reports: Bipolar Disorder, Depression Past Surgical History Past Surgical History: Reports: None Social History Smoking Status: Never Smoker Frequency of Alcohol Use: Occasional Hx Recreational Drug Use: No Drugs: None Hx Prescription Drug Abuse: No - Advance Directive Resuscitation Status: Full Code Family History Family History: Hypertension Parental Family History Reviewed: Yes Children Family History Reviewed: Yes Sibling(s) Family History Reviewed.: Yes Medication/Allergy Home Medications: Carvedilol [Coreg 3.125 mg Tablet] 3.125 mg PO Q12 01/15/18 Gabapentin [Neurontin 300 mg Capsule] 300 mg PO DAILY@08,12 01/15/18 Gabapentin [Neurontin 300 mg Capsule] 600 mg PO QHS 01/15/18 Acetaminophen [Tylenol 325 mg Tablet] 650 mg PO Q4HP PRN tablet 01/16/18 Insulin Detemir [Levemir Flextouch] 28 units SQ Q12 #1 insuln.pen 01/16/18 Insulin Lispro [Humalog Insulin (Lispro) 100 unit/mL] 0 - 12 unit SUBCUT ACHSP PRN #1 vial 01/16/18 Allergies/Adverse Reactions: bupropion [From Wellbutrin] Allergy (Verified 01/14/18 19:03) diphenhydramine [From Benadryl] Allergy (Verified 01/14/18 19:03) Penicillins Allergy (Verified 01/14/18 19:03) Review of Systems Constitutional: PRESENT: as per HPI Eyes: PRESENT: as per HPI Cardiovascular: PRESENT: as per HPI Respiratory: PRESENT: as per HPI Gastrointestinal: PRESENT: as per HPI, abdominal pain - Epigastric pain, other Neurological: PRESENT: as per HPI Psychiatric: PRESENT: as per HPI Physical Exam Vital Signs: Temp Pulse Resp BP Pulse Ox 18 99 02/05/18 02:44 02/05/18 02:44 General appearance: PRESENT: no acute distress, well-developed, well-nourished Head exam: PRESENT: atraumatic, normocephalic Eye exam: PRESENT: conjunctiva pink, EOMI, PERRLA. ABSENT: scleral icterus Ear exam: PRESENT: normal external ear exam Mouth exam: PRESENT: moist, tongue midline Neck exam: ABSENT: carotid bruit, JVD, lymphadenopathy, thyromegaly Respiratory exam: PRESENT: clear to auscultation lam. ABSENT: rales, rhonchi, wheezes Cardiovascular exam: PRESENT: RRR. ABSENT: diastolic murmur, rubs, systolic murmur Pulses: PRESENT: normal dorsalis pedis pul Vascular exam: PRESENT: normal capillary refill GI/Abdominal exam: PRESENT: normal bowel sounds, soft, tenderness - Epigastric. ABSENT: distended, guarding, mass, organolmegaly, rebound Rectal exam: PRESENT: deferred Extremities exam: PRESENT: full ROM. ABSENT: calf tenderness, clubbing, pedal edema Neurological exam: PRESENT: alert, awake, oriented to person, oriented to place , oriented to time, oriented to situation, CN II-XII grossly intact. ABSENT: motor sensory deficit Psychiatric exam: PRESENT: appropriate affect, normal mood. ABSENT: homicidal ideation, suicidal ideation Skin exam: PRESENT: dry, intact, warm. ABSENT: cyanosis, rash Assessment & Plan - Diagnosis (1) Acute on chronic pancreatitis Is this a current diagnosis for this admission?: Yes Plan: Her n.p.o. to rest her bowel. Hydration was normal saline Pain controlled. (2) Hyperglycemia Is this a current diagnosis for this admission?: Yes Plan: Hopefully see hydration will help correct the hyperglycemia. I will put her also on sliding scale (3) Type 1 diabetes mellitus Is this a current diagnosis for this admission?: Yes Plan: Poorly controlled due to noncompliance. Patient needs diabetic education. (4) Bipolar disorder Qualifiers: Most recent bipolar episode type: most recent episode unspecified type Is this a current diagnosis for this admission?: Yes Plan: Continue her home medication
[2018-02-05] MEDS ORDERED: INSULIN LISPRO 100 UNIT/ML 3 ML VIAL SUBCUT ONE (04:49)
[2018-02-05] MEDS ORDERED: LANSOPRAZOLE 30 MG TAB.RAP.DR PO SCH (06:00)
[2018-02-05 08:41] LABS: ANION GAP 12 (5-19); BLOOD UREA NITROGEN 10 mg/dL (7-20); CALCIUM 8.3 mg/dL (8.4-10.2); CARBON DIOXIDE 19 mmol/L (22-30); CHLORIDE 114 mmol/L (98-107); GLUCOSE 115 mg/dL (75-110); PHOSPHORUS 2.2 mg/dL (2.5-4.5); SODIUM 144.9 mmol/L (137-145)
[2018-02-05] MEDS ORDERED: ONDANSETRON 4 MG TAB.RAPDIS PO PRN (08:45)
[2018-02-05 08:48] LABS: POTASSIUM 3.5 mmol/L (3.6-5.0)
[2018-02-05] MEDS ORDERED: ONDANSETRON 4 MG TAB.RAPDIS ONE (09:01)
[2018-02-05] MEDS ORDERED: ENOXAPARIN SODIUM INJ 40 MG/0.4 ML DISP.SYRIN SUBCUT SCH (10:00)
[2018-02-05] MEDS ORDERED: POTASSIUM CHLORIDE 10 MEQ CAPSULE.ER PO ONE (10:31)
[2018-02-05] MEDS ORDERED: GABAPENTIN 300 MG CAPSULE PO ONE (14:00)
--- NOTE | 2018-02-05 16:15 | Progress Note ---
Provider Note Provider Note: 22 y.o. F with PMH of type 1 DM presented to [facility] ED with abdominal pain and HYPERglycemia. Recently discharged from [facility] on 01/16 following admission for DKA and pancreatitis. Patient states she has not been drinking alcohol since her discharge, additionally, she states she has been taking her insulin as directed. She did not take insulin yesterday because she was not feeling well. Upon assessment, RUQ and LUQ TTP. Patient endorses nausea without vomiting. Denies diarrhea. 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 HYPERglycemia: Resolved. Blood glucose on a.m. labs in the 100s. Anion gap 12. Manage blood glucose with every 6 hours Accu-Cheks and Humalog sliding scale insulin. 2. Pancreatitis: Lipase > 1300. Patient denies EtOH consumption. Serum alcohol <10 upon arrival. Initially n.p.o., will trial clear liquid diet. If patient develops abdominal pain, nausea or vomiting, will have to return to NPO status. If patient tolerates clear liquids, will attempt to advance to diabetic diet tomorrow. 3. Neuropathy: Patient endorses bilateral lower extremity neuropathy. Continue home dose gabapentin.
[2018-02-05 17:46] LABS: BLOOD UREA NITROGEN 10 mg/dL (7-20); CALCIUM 8.2 mg/dL (8.4-10.2)
[2018-02-05 17:51] LABS: CHLORIDE 110 mmol/L (98-107)
[2018-02-05 17:56] LABS: GLUCOSE 637 mg/dL (75-110)
[2018-02-05 18:32] LABS: POTASSIUM 5.1 mmol/L (3.6-5.0)
[2018-02-05 18:33] LABS: CARBON DIOXIDE 8 mmol/L (22-30)
[2018-02-05 18:34] LABS: ANION GAP 20 (5-19)
[2018-02-05] MEDS ORDERED: NORMAL SALINE 100 ML with INSULIN REGULAR, HUMAN 100 UNIT IV PRN ×2 (18:41)
[2018-02-05] MEDS ORDERED: GLUCAGON,HUMAN RECOMB 1 MG INJ SUBCUT PRN (18:45)
[2018-02-05 19:00] LABS: PHOSPHORUS 3.4 mg/dL (2.5-4.5)
--- NOTE | 2018-02-05 19:08 | EKG REPORT ---
SEVERITY:- NORMAL ECG - SINUS RHYTHM : Confirmed by: Caridad Cox MD 05-Feb-2018 19:07:53
[2018-02-05 19:30] LABS: BLOOD UREA NITROGEN 11 mg/dL (7-20); CALCIUM 8.6 mg/dL (8.4-10.2); POTASSIUM 4.6 mmol/L (3.6-5.0)
[2018-02-05 19:36] LABS: CHLORIDE 111 mmol/L (98-107); SODIUM 141.9 mmol/L (137-145)
[2018-02-05 19:42] LABS: ANION GAP 26 (5-19)
[2018-02-05 19:45] LABS: GLUCOSE 611 mg/dL (75-110)
[2018-02-05 19:46] LABS: CARBON DIOXIDE 5 mmol/L (22-30)
[2018-02-05] MEDS: GABAPENTIN 300 MG CAPSULE PO SCH (20:39)
[2018-02-05] MEDS: PANTOPRAZOLE SODIUM 40 MG VIAL IV SCH (20:39)
[2018-02-05 23:03] LABS: BLOOD UREA NITROGEN 7 mg/dL (7-20); CALCIUM 8.2 mg/dL (8.4-10.2); CHLORIDE 116 mmol/L (98-107); GLUCOSE 266 mg/dL (75-110); POTASSIUM 4.7 mmol/L (3.6-5.0); SODIUM 140.4 mmol/L (137-145)
[2018-02-05 23:08] LABS: ANION GAP 14 (5-19)
[2018-02-05 23:12] LABS: CARBON DIOXIDE 10 mmol/L (22-30)
[2018-02-06 03:24] LABS: ABSOLUTE BASOPHILS # (AUTO) 0.1 10^3/uL (0.0-0.2); ABSOLUTE EOSINOPHILS # (AUTO) 0.2 10^3/uL (0.0-0.6); ABSOLUTE LYMPHOCYTES (AUTO) 2.3 10^3/uL (0.5-4.7); ABSOLUTE MONOCYTES (AUTO) 0.6 10^3/uL (0.1-1.4); BASOPHILS % (AUTO) 0.5 % (0-2); EOSINOPHILS % (AUTO) 1.7 % (0-6); HEMATOCRIT 31.9 % (36.0-47.0); HEMOGLOBIN 9.6 g/dL (12.0-15.5); LYMPHOCYTES % (AUTO) 22.5 % (13-45); MEAN CORPUSCULAR HEMOGLOBIN 23.2 pg (27.0-33.4); MEAN CORPUSCULAR HGB CONC 30.2 g/dL (32.0-36.0); MEAN CORPUSCULAR VOLUME 77 fl (80-97); MONOCYTES % (AUTO) 5.8 % (3-13); PLATELET COUNT 470 10^3/uL (150-450); RED BLOOD COUNT 4.14 10^6/uL (3.72-5.28); RED CELL DISTRIBUTION WIDTH 17.2 % (11.5-14.0); SEGMENTED NEUTROPHILS % (AUTO) 69.5 % (42-78); TOTAL CELLS COUNTED % (AUTO) 100 %; WHITE BLOOD COUNT 10.1 10^3/uL (4.0-10.5)
[2018-02-06 03:39] LABS: ANION GAP 15 (5-19); BLOOD UREA NITROGEN 6 mg/dL (7-20); CALCIUM 7.9 mg/dL (8.4-10.2); CARBON DIOXIDE 12 mmol/L (22-30); CHLORIDE 116 mmol/L (98-107); GLUCOSE 197 mg/dL (75-110); SODIUM 142.8 mmol/L (137-145)
[2018-02-06 03:53] LABS: POTASSIUM 3.4 mmol/L (3.6-5.0)
[2018-02-06] MEDS ORDERED: DEXTROSE 5%-1/2 NORMAL SALINE 1,000 ML IV PRN (06:00)
[2018-02-06] MEDS ORDERED: INSULIN LISPRO 100 UNIT/ML 3 ML VIAL SUBCUT SCH (08:00)
[2018-02-06 08:26] LABS: ANION GAP 14 (5-19); BLOOD UREA NITROGEN 5 mg/dL (7-20); CALCIUM 7.6 mg/dL (8.4-10.2); CARBON DIOXIDE 13 mmol/L (22-30); CHLORIDE 113 mmol/L (98-107); GLUCOSE 264 mg/dL (75-110); LIPASE 298.8 U/L (23-300); POTASSIUM 3.5 mmol/L (3.6-5.0)
[2018-02-06] MEDS: PANTOPRAZOLE SODIUM 40 MG VIAL IV SCH ×2 (10:08→20:56)
[2018-02-06] MEDS: GABAPENTIN 300 MG CAPSULE PO SCH ×2 (10:08→20:57)
[2018-02-06] MEDS ORDERED: GLUCAGON,HUMAN RECOMB 1 MG INJ SUBCUT PRN (11:16)
[2018-02-06] MEDS ORDERED: DEXTROSE 50%-WATER 25 GM/50 ML DISP.SYRIN IV PRN ×4 (11:16→15:28)
[2018-02-06] MEDS ORDERED: DEXTROSE 40% GEL 15 GM TUBE PO PRN ×4 (11:16→15:28)
[2018-02-06] MEDS ORDERED: FLUCONAZOLE 100 MG TABLET PO ONE (11:30)
[2018-02-06 12:00] LABS: PHOSPHORUS 1.7 mg/dL (2.5-4.5)
[2018-02-06 12:01] LABS: ANION GAP 15 (5-19); BLOOD UREA NITROGEN 3 mg/dL (7-20); CALCIUM 8.7 mg/dL (8.4-10.2); CARBON DIOXIDE 13 mmol/L (22-30); CHLORIDE 111 mmol/L (98-107); GLUCOSE 216 mg/dL (75-110); POTASSIUM 3.9 mmol/L (3.6-5.0); SODIUM 138.7 mmol/L (137-145)
[2018-02-06] MEDS ORDERED: ACETAMINOPHEN 325 MG TABLET PO PRN (15:26)
[2018-02-06] MEDS ORDERED: GLUCAGON,HUMAN RECOMB 1 MG INJ IM PRN (15:28)
--- NOTE | 2018-02-06 17:42 | PDOC PROGRESS REPORT ---
Subjective Progress Note for:: 02/06/18 Subjective:: 22 y.o. F with PMH of type 1 DM presented to [facility] ED with abdominal pain and HYPERglycemia. Recently discharged from [facility] on 01/16 following admission for DKA and pancreatitis. Patient states she has not been drinking alcohol since her discharge, additionally, she states she has been taking her insulin as directed. She did not take insulin 24hr prior to arrival because she was not feeling well. Yesterday afternoon, nursing staff notified provider that glucometer was reading 'HIGH.' BMP confirmed that the patient's blood glucose was 637, anion GAP 20. The patient was restarted on an insulin gtt. BMP monitored q4hrs overnight. Upon assessment, the patient is sitting up in bed on room air. She states she feels 'much better' this morning. The patient denies abdominal pain, nausea, vomiting, or diarrhea. Reason For Visit: PANCREATITIS HYPERGLYCEMIA Physical Exam Vital Signs: Temp Pulse Resp BP Pulse Ox 98.7 F 111 H 19 102/62 100 02/06/18 07:22 02/06/18 07:22 02/06/18 07:22 02/06/18 07:22 02/06/18 07:22 Intake & Output 02/05/18 02/06/18 02/07/18 06:59 06:59 06:59 Intake Total 100 4120 Output Total 200 Balance 100 3920 Weight 68.1 kg 79.7 kg General appearance: PRESENT: no acute distress, well-developed, well-nourished Head exam: PRESENT: atraumatic, normocephalic Eye exam: PRESENT: conjunctiva pink, EOMI, PERRLA. ABSENT: scleral icterus Ear exam: PRESENT: normal external ear exam Mouth exam: PRESENT: moist, tongue midline Teeth exam: PRESENT: poor dentation Neck exam: ABSENT: carotid bruit, JVD, lymphadenopathy, thyromegaly Respiratory exam: PRESENT: clear to auscultation lam, symmetrical. ABSENT: rales, rhonchi, wheezes Cardiovascular exam: PRESENT: RRR, +S1, +S2. ABSENT: diastolic murmur, rubs, systolic murmur Pulses: PRESENT: normal dorsalis pedis pul Vascular exam: PRESENT: normal capillary refill GI/Abdominal exam: PRESENT: normal bowel sounds, soft. ABSENT: distended, guarding, mass, organolmegaly, rebound, tenderness Rectal exam: PRESENT: deferred Extremities exam: PRESENT: full ROM. ABSENT: calf tenderness, clubbing, pedal edema Musculoskeletal exam: PRESENT: ambulatory, full ROM Neurological exam: PRESENT: alert, awake, oriented to person, oriented to place , oriented to time, oriented to situation Psychiatric exam: PRESENT: appropriate affect, normal mood Skin exam: PRESENT: dry, intact, warm Results Laboratory Results: 02/06/18 03:07 02/06/18 07:57 02/05/18 02/05/18 02/05/18 16:50 17:26 17:26 WBC RBC Hgb Hct MCV MCH MCHC RDW Plt Count Seg Neutrophils % Lymphocytes % Monocytes % Eosinophils % Basophils % Absolute Neutrophils Absolute Lymphocytes Absolute Monocytes Absolute Eosinophils Absolute Basophils Sodium Cancelled 138.0 Potassium Cancelled 5.1 H D Chloride Cancelled 110 H Carbon Dioxide Cancelled 8 L* D Anion Gap Cancelled 20 H BUN Cancelled 10 Creatinine Cancelled 0.51 L Est GFR ( Amer) Cancelled > 60 Est GFR (Non-Af Amer) Cancelled > 60 Glucose Cancelled 637 H* Calcium Cancelled 8.2 L Phosphorus 3.4 Magnesium 1.8 Lipase 02/05/18 02/05/18 02/06/18 19:00 22:40 03:07 WBC 10.1 RBC 4.14 Hgb 9.6 L Hct 31.9 L MCV 77 L MCH 23.2 L MCHC 30.2 L RDW 17.2 H Plt Count 470 H Seg Neutrophils % 69.5 Lymphocytes % 22.5 Monocytes % 5.8 Eosinophils % 1.7 Basophils % 0.5 Absolute Neutrophils 7.0 Absolute Lymphocytes 2.3 Absolute Monocytes 0.6 Absolute Eosinophils 0.2 Absolute Basophils 0.1 Sodium 141.9 140.4 Potassium 4.6 4.7 Chloride 111 H 116 H Carbon Dioxide 5 L* 10 L* Anion Gap 26 H 14 BUN 11 7 Creatinine 0.57 0.42 L Est GFR ( Amer) > 60 > 60 Est GFR (Non-Af Amer) > 60 > 60 Glucose 611 H* 266 H Calcium 8.6 8.2 L Phosphorus Magnesium Lipase 02/06/18 02/06/18 03:07 07:57 WBC RBC Hgb Hct MCV MCH MCHC RDW Plt Count Seg Neutrophils % Lymphocytes % Monocytes % Eosinophils % Basophils % Absolute Neutrophils Absolute Lymphocytes Absolute Monocytes Absolute Eosinophils Absolute Basophils Sodium 142.8 140.0 Potassium 3.4 L D 3.5 L Chloride 116 H 113 H Carbon Dioxide 12 L 13 L Anion Gap 15 14 BUN 6 L 5 L Creatinine 0.42 L 0.41 L Est GFR ( Amer) > 60 > 60 Est GFR (Non-Af Amer) > 60 > 60 Glucose 197 H 264 H Calcium 7.9 L 7.6 L Phosphorus Magnesium Lipase 298.8 Status: Imported from PACS Assessment & Plan - Diagnosis (1) Hyperglycemia Is this a current diagnosis for this admission?: Yes Plan: Improving. Patient has history of Type 1 DM Presented to [facility] with BG >500. Initially tx with IVF and sliding scale insulin BG continued to climb and Anion Gap worsened, started on insulin gtt yesterday Able to wean off insulin gtt today Accucheks ACHS sliding scale humalog insulin Diabetic diet at this time (2) Acute on chronic pancreatitis Is this a current diagnosis for this admission?: Yes Plan: Resolving. Patient reports history of pancreatitis. Presented to [facility] ED with abdominal pain. Initial Lipase > 1300. Decreased to 298.8 today. Abdominal exam benign - normal BS, no tenderness to palpation Patient endorses improvement in her symptomology Tylenol PRN Patient reports that she is hungry, will initiate diabetic diet (3) Neuropathy Is this a current diagnosis for this admission?: Yes Plan: Patient endorses bilateral lower extremity neuropathy. Continue home dose gabapentin. - Time Time Spent with patient: 15-24 minutes Anticipated discharge: Home Within: within 48 hours - Inpatient Certification Based on my medical assessment, after consideration of the patient's comorbidities, presenting symptoms, or acuity I expect that the services needed warrant INPATIENT care.: Yes I certify that my determination is in accordance with my understanding of Medicare's requirements for reasonable and necessary INPATIENT services [42 CFR 412.3e].: Yes Medical Necessity: Risk of Complication if Not Cared For in Hospital - Plan Summary Plan Summary: MEET WITH COSMETICS DEMONSTRATOR PRIOR TO DISCHARGE. PATIENT DOES NOT HAVE BULL RIVETER, WILL REACH OUT TO D/C PLANNING FOR ASSISTANCE.
[2018-02-06] MEDS: INSULIN LISPRO 100 UNIT/ML 3 ML VIAL SUBCUT PRN ×2 (18:03→20:56)
[2018-02-06] MEDS ORDERED: NORMAL SALINE 1000 ML 1,000 ML IV PRN (21:02)
[2018-02-06] MEDS ORDERED: DIPHENHYDRAMINE HCL 25 MG CAPSULE ONE (23:50)
[2018-02-07] MEDS ORDERED: DIPHENHYDRAMINE HCL 25 MG CAPSULE PO ONE (00:30)
[2018-02-07] MEDS: INSULIN LISPRO 100 UNIT/ML 3 ML VIAL SUBCUT PRN ×3 (06:14→16:47)
[2018-02-07] MEDS ORDERED: INSULIN REG, HUMAN 100 UNIT/ML 3 ML VIAL (PYX) IV ONE (06:45)
[2018-02-07 07:22] LABS: ALANINE AMINOTRANSFERASE 23 U/L (9-52); ALBUMIN 3.5 g/dL (3.5-5.0); ALKALINE PHOSPHATASE 157 U/L (38-126); ASPARTATE AMINO TRANSFERASE 19 U/L (14-36); BILIRUBIN,DIRECT 0.3 mg/dL (0.0-0.4); BILIRUBIN,TOTAL 0.3 mg/dL (0.2-1.3); BLOOD UREA NITROGEN 11 mg/dL (7-20); CALCIUM 9.2 mg/dL (8.4-10.2); TOTAL PROTEIN 6.3 g/dL (6.3-8.2)
[2018-02-07 07:28] LABS: ANION GAP 19 (5-19); CARBON DIOXIDE 11 mmol/L (22-30); CHLORIDE 107 mmol/L (98-107); SODIUM 137.3 mmol/L (137-145)
[2018-02-07 07:34] LABS: GLUCOSE 573 mg/dL (75-110)
[2018-02-07] MEDS ORDERED: INSULIN DETEMIR 100 UNIT/ML 3 ML PEN SUBCUT SCH (10:00)
[2018-02-07] MEDS ORDERED: NORMAL SALINE 1000 ML 500 ML IV ONE ×2 (11:04→11:34)
[2018-02-07] MEDS: GABAPENTIN 300 MG CAPSULE PO SCH (11:16)
[2018-02-07] MEDS: PANTOPRAZOLE SODIUM 40 MG VIAL IV SCH (11:19)
[2018-02-07 15:39] LABS: ANION GAP 12 (5-19); BLOOD UREA NITROGEN 9 mg/dL (7-20); CALCIUM 8.7 mg/dL (8.4-10.2); CARBON DIOXIDE 16 mmol/L (22-30); CHLORIDE 110 mmol/L (98-107); GLUCOSE 203 mg/dL (75-110); SODIUM 137.9 mmol/L (137-145)
[2018-02-07 15:58] LABS: POTASSIUM 3.9 mmol/L (3.6-5.0)
[2018-02-07 16:48] VITALS: BP 100/65
--- NOTE | 2018-02-08 21:52 | PDOC DISCHARGE SUMMARY ---
General - Admit/Disc Date/PCP Admission Date/Primary Care Provider: 02/05/18 04:26 Discharge Date: 02/07/18 - Discharge Diagnosis (1) DKA (diabetic ketoacidoses) Is this a current diagnosis for this admission?: Yes Summary: Pt presented with nausea, vomiting, abdominal pain, and endorsed that she had not taken any of her prescribed insulins for >24 hours prior to evaluation in the emergency department secondary to "not feeling well." Initial glucose >500 with Anion Gap of 26. She was admitted to the medical floor on continuous cardiac telemetry. She was provided aggressive IV hydration and initially placed on an insulin drip. Her anion gap closed and she was transitioned onto her home dose Levemir and Humalog for sliding scale coverage. She met with the software educator to review the importance of sick-day insulin dosing. At time of discharge, the patient is in stable condition, tolerating a consistent carb diet, with appropriate glucose control with her home dosed insulin. She is provided a prescription for Ketone test strips to assist with monitoring on sick days. She is advised to follow up with her primary care provider within 1 week. (2) Acute on chronic pancreatitis Is this a current diagnosis for this admission?: Yes Summary: Resolved. Patient with history of pancreatitis; recently admitted for the same secondary to EtOH abuse. Patient denies recent alcohol intake. Initial Lipase > 1300. Decreased to 298.8. All symptoms have resolved and the patient is now tolerating a consistent carb diet without need for analgesics or antiemetics. (3) Bipolar 1 disorder Is this a current diagnosis for this admission?: Yes Summary: The patient's home mediations were continued. (4) Neuropathy Is this a current diagnosis for this admission?: Yes Summary: The patient's home medications were continued. - Additional Information Resuscitation Status: Full Code Discharge Diet: Diabetic, Other (Comments) Discharge Activity: Activity As Tolerated Prescriptions: Urine Acetone Test,Strips [Ketone Test Strip] 1 each MC ASDIR PRN #30 strip PRN Reason: Home Medications: Gabapentin [Neurontin 300 mg Capsule] 300 mg PO DAILY@08,12 01/15/18 Gabapentin [Neurontin 300 mg Capsule] 600 mg PO QHS 01/15/18 Insulin Detemir [Levemir Flextouch] 26 units SQ Q12 02/05/18 Insulin Lispro [Humalog Insulin (Lispro) 100 unit/mL] 0 unit SUBCUT .SLD SCALE PRN 02/05/18 Acetaminophen [Tylenol 325 mg Tablet] 975 mg PO Q6HP PRN tablet 02/07/18 Urine Acetone Test,Strips [Ketone Test Strip] 1 each MC ASDIR PRN #30 strip 10/23 History of Present Illness History of Present Illness: Per H&P by Dr. Mendez: RUMA HUITRON is a 22 year old female sent with past medical history of type 1 diabetes mellitus, recurrent DKA, bipolar disorder, alcohol abuse and alcohol induced pancreatitis presented to us with chief complaint of epigastric pain described as sharp pain radiating to her back. Her initial workup shows markedly elevated lipase of 1376 and hyperglycemia with blood glucose level of 510. Note patient discharged on January 16 after she was treated for DKA. Patient reported that she did not take her insulin for the past 2 days because of her abdominal pain. She denies any nausea, vomiting, diarrhea, chest pain, cough, palpitation, diaphoresis or any urinary complaints. No dizziness headache or blurring of vision. Physical Exam Vital Signs: Temp Pulse Resp BP Pulse Ox 97.4 F 103 H 16 100/65 100 02/07/18 19:27 02/07/18 19:27 02/07/18 19:27 02/07/18 19:27 02/07/18 19:27 Intake & Output 02/07/18 02/08/18 02/09/18 06:59 06:59 06:59 Intake Total 4629 3280 Balance 4629 3280 Weight 71.3 kg General appearance: PRESENT: no acute distress, cooperative, disheveled, well- developed, well-nourished, other - Overweight Head exam: PRESENT: atraumatic, normocephalic Eye exam: PRESENT: conjunctiva pink, EOMI, PERRLA. ABSENT: scleral icterus Ear exam: PRESENT: normal external ear exam Mouth exam: PRESENT: moist, tongue midline Neck exam: ABSENT: carotid bruit, JVD, lymphadenopathy, thyromegaly Respiratory exam: PRESENT: clear to auscultation lam, symmetrical, unlabored. ABSENT: rales, rhonchi, wheezes Cardiovascular exam: PRESENT: RRR, +S1, +S2. ABSENT: diastolic murmur, rubs, systolic murmur Pulses: PRESENT: normal dorsalis pedis pul Vascular exam: PRESENT: normal capillary refill GI/Abdominal exam: PRESENT: normal bowel sounds, soft. ABSENT: distended, guarding, mass, organolmegaly, rebound, tenderness Rectal exam: PRESENT: deferred Extremities exam: PRESENT: full ROM. ABSENT: calf tenderness, clubbing, pedal edema Neurological exam: PRESENT: alert, awake, oriented to person, oriented to place , oriented to time, oriented to situation, CN II-XII grossly intact. ABSENT: motor sensory deficit Psychiatric exam: PRESENT: appropriate affect, normal mood. ABSENT: homicidal ideation, suicidal ideation Skin exam: PRESENT: dry, intact, warm. ABSENT: cyanosis, rash Results Laboratory Results: 02/06/18 03:07 02/07/18 15:12 Qualifiers - * PATIENT BEING DISCHARGED WITH ANY OF THE FOLLOWING DIAGNOSIS: No Plan Discharge Plan: Discharge to home with home health nursing and community after school program coordinator referral. Time Spent: Less than 30 Minutes
== END 2018-02-07 21:34 | disposition home or self-care (01) | DRG 637 ==
LOC: ER 00:56 → EH 04:26 → 4N 05:29
PROVIDERS: ADMIT Internal Medicine; ATTEND Internal Medicine
DX: E10.10 Type 1 diabetes mellitus with ketoacidosis without coma (principal); K85.20 Alcohol induced acute pancreatitis without necrosis or infection; K86.0 Alcohol-induced chronic pancreatitis; T38.3X6A Underdosing of insulin and oral hypoglycemic [antidiabetic] drugs, initial encounter; F10.10 Alcohol abuse, uncomplicated; Y90.0 Blood alcohol level of less than 20 mg/100 ml; E10.40 Type 1 diabetes mellitus with diabetic neuropathy, unspecified; F31.9 Bipolar disorder, unspecified; Z91.128 Patient's intentional underdosing of medication regimen for other reason; Z82.49 Family history of ischemic heart disease and other diseases of the circulatory system; Z88.0 Allergy status to penicillin; Z88.8 Allergy status to other drugs, medicaments and biological substances
CPT/HCPCS: 36415; 80048; 80053; 80307; 81001; 81025; 82803; 82962; 83036; 83690; 83735; 84100; 85025; 93005; 93010; 96361; 96374; 96375; 99285; J1630; J1815; J2270; J7030; S0164

== ENCOUNTER 2018-06-24 18:20 | Inpatient (IN) | payer MEDICAID ==
[2018-06-24] MEDS ORDERED: RINGERS SOLUTION,LACTATED 1,000 ML IV ONE ×2 (18:44→18:45)
[2018-06-24 19:13] LABS: APPEARANCE,URINE CLEAR; BILIRUBIN,URINE NEGATIVE (NEGATIVE); COLOR,URINE COLORLESS; GLUCOSE, URINE >=500 mg/dL (NEGATIVE); KETONES,URINE 80 mg/dL (NEGATIVE); LEUKOCYTE ESTERASE,URINE NEGATIVE (NEGATIVE); NITRITE,URINE NEGATIVE (NEGATIVE); PROTEIN,URINE NEGATIVE (NEGATIVE); URINE SPECIFIC GRAVITY 1.023; UROBILINOGEN,URINE NEGATIVE mg/dL (<2.0)
[2018-06-24] MEDS ORDERED: MIDAZOLAM 2 MG/2 ML INJ ONE (19:53)
--- NOTE | 2018-06-24 20:00 | ER Document Report ---
ED General - General Stated Complaint: NAUSEA Time Seen by Provider: 06/24/18 18:39 Cannot obtain history due to: Unstable vital signs, Altered mental status Notes: Patient is a 23-year-old female who presents with complaints of body pain and feel that she is in diabetic ketoacidosis. No history can be obtained as the patient is extremely agitated, crying out, unable to be redirected. TRAVEL OUTSIDE OF THE [place] IN LAST 30 DAYS: No - Related Data Allergies/Adverse Reactions: bupropion [From Wellbutrin] Allergy (Verified 01/14/18 19:03) diphenhydramine [From Benadryl] Allergy (Verified 01/14/18 19:03) Penicillins Allergy (Verified 01/14/18 19:03) Past Medical History - General Information source: Patient Cannot obtain history due to: Unstable vital signs - Social History Smoking Status: Never Smoker Frequency of alcohol use: Heavy Drug Abuse: None Lives with: Alone Family History: Hypertension Endocrine Medical History: Reports: Hx Diabetes Mellitus Type 1 Renal/ Medical History: Denies: Hx Peritoneal Dialysis Psychiatric Medical History: Reports: Hx Bipolar Disorder, Hx Depression Review of Systems - Review of Systems -: Yes ROS unobtainable due to patient's medical condition Physical Exam - Vital signs Vitals: Temp Resp BP Pulse Ox 98.7 F 25 H 121/69 99 06/24/18 18:29 06/24/18 18:29 06/24/18 18:29 06/24/18 18:29 Interpretation: Tachycardic, Tachypneic Notes: PHYSICAL EXAMINATION: GENERAL: Appears extremely unwell, lethargic HEAD: Atraumatic, normocephalic. EYES: Pupils equal round and reactive to light, extraocular movements intact, sclera anicteric, conjunctiva are normal. ENT: nares patent, oropharynx clear without exudates. Extremely dry mucous membranes. NECK: Normal range of motion, supple without lymphadenopathy LUNGS: Kussmaul respirations. Tachypneic. No retractions or distress. HEART: Regular tachycardia without murmurs ABDOMEN: Soft, nontender, normoactive bowel sounds. No guarding, no rebound. No masses appreciated. EXTREMITIES: Normal range of motion, no pitting or edema. No cyanosis. NEUROLOGICAL: No focal neurological deficits. Moves all extremities spontaneously and on command. PSYCH: Extremely agitated, crying out, demeanor and affect are inappropriate for age SKIN: Warm, Dry, poor turgor. Course - Re-evaluation Re-evalutation: 06/24/18 19:58 I have been at this patient's bedside continuously for the past 1 hour. In summary this is a patient who presents in severe diabetic ketoacidosis. She is tachycardic, lethargic somewhat altered. The patient is unfortunately an extremely challenging patient. She is very resistant to attempts at obtaining IV access. I did place a right internal jugular central line although the line continued to kink and turned into what appears to be the subclavian vein. Although I could get blood flow from the vessel and confirmed that they had not been placed in an artery, the positioning was unacceptable so the line was removed. I therefore moved to place a right femoral line. However the patient curled up into a position and despite over 10 minutes of again trying to explain to the patient the severity of her clinical presentation she continued to refuse to allow placement of the line. I did repeatedly asked the patient if she was explicitly declining this procedure and attempted to go through a capacity assessment. She repeatedly stated that she wanted the central line but "not right now". I have made every attempt to try to calm the patient and placed the line successfully but have been unable to do so secondary to the patient's unwillingness or inability to cooperate. We have therefore given 2 mg of intramuscular midazolam and I will again attempt to place a line within the next 10 minutes. The patient emergently needs vascular assess as she requires multiple medication infusions, blood draws and will require admission to the ICU. Will continue to reassess at regular intervals. 06/24/18 20:40 Patient was able to be softly restrained to the bed and with multiple assistance I was able to place a right femoral central line without complication. The patient has been immediately initiated under aggressive resuscitation with 2 L of lactated Ringer's being rapidly infused on pressure bags. Labs are being obtained at this time through central line. Patient remains extremely agitated, tachycardic although does not meet criteria for delirium. Will continue to reassess at regular intervals. She remains critically ill and continues to be minimally cooperative although continues to request care. 06/24/18 21:16 Patient's venous blood gas has returned with a markedly low pH at 6.9. Awaiting potassium before beginning insulin infusion. Patient has been started on a bicarbonate infusion after a bicarb bolus given her dramatic low pH. Patient has been started on her third and fourth liter of lactated Ringer's. She continues to be quite agitated, repeat orientation assessment continues to show that she is alert and oriented x4. 06/24/18 21:52 Patient is hypothermic, temperature 96.1. Remains quite tachycardic although somewhat improved at 143 bpm. Remains normotensive at 120 and 54. An insulin infusion has been started at 0.14 units/kg/h. Active rewarming ongoing. Patient continues to act at her baseline. Will discuss with the hospitalist for admission to the ICU. 06/24/18 22:01 I have reviewed this case with the admitting physician Dr. Cheatham who has accepted the patient. - Vital Signs Vital signs: Temp Pulse Resp BP Pulse Ox 97.7 F 147 H 19 112/62 100 06/25/18 00:04 06/24/18 23:04 06/25/18 00:04 06/25/18 00:04 06/25/18 00:04 - Laboratory Result Diagrams: 06/24/18 20:42 06/24/18 23:17 Laboratory results interpreted by me: 06/24/18 06/24/18 06/24/18 18:35 20:42 20:42 WBC 24.2 H RBC 5.41 H Hgb 10.1 L MCV 74 L MCH 18.7 L MCHC 25.5 L RDW 18.9 H Plt Count 696 H Seg Neuts % (Manual) 82 H Monocytes % (Manual) 2 L Abs Neuts (Manual) 19.8 H VBG pH VBG pCO2 VBG HCO3 Potassium 5.5 H Carbon Dioxide < 5 L* Glucose 843 H* Hemoglobin A1c % Lactic Acid Alkaline Phosphatase 171 H Urine Glucose (UA) >=500 H Urine Ketones 80 H Urine Blood SMALL H 06/24/18 06/24/18 06/24/18 20:42 20:42 20:42 WBC RBC Hgb MCV MCH MCHC RDW Plt Count Seg Neuts % (Manual) Monocytes % (Manual) Abs Neuts (Manual) VBG pH 6.91 L* VBG pCO2 23.5 L VBG HCO3 4.6 L Potassium Carbon Dioxide Glucose Hemoglobin A1c % 13.1 H Lactic Acid 2.4 H Alkaline Phosphatase Urine Glucose (UA) Urine Ketones Urine Blood Procedures - Central Line Right Internal jugular Consent obtained: No Central line pre-insertion: Chloraprep applied, Sterile drapes applied Central line lumen type: Triple Anesthetic type: 1% Lidocaine mL's of anesthesia: 5 Ultrasound guided: Yes CM at insertion site: 28 Line secured with sutures: Yes Central line post-insertion: Blood return from lumens, Biopatch applied, Sutured , Position confirmed w/ CXR Number of attempts: 2 Complications: Yes - Catheter continued to thread into the subclavian vein was removed Right femoral Consent obtained: No - Emergent Central line pre-insertion: Chloraprep applied, Sterile drapes applied Central line lumen type: Triple Anesthetic type: 1% Lidocaine mL's of anesthesia: 5 Ultrasound guided: Yes CM at insertion site: 30 Line secured with sutures: Yes Central line post-insertion: Blood return from lumens, Biopatch applied, Sutured , Sterile dressing applied Number of attempts: 1 Complications: No Critical Care Note - Critical Care Note Total time excluding time spent on procedures (mins): 85 Comments: Critical care time spent obtaining history from patient or surrogate, discussions with consultants, development of treatment plan with patient or surrogate, evaluation of patient's response to treatment, examination of patient , ordering and performing treatments and interventions, ordering and review of laboratory studies, re-evaluation of patient's condition, ordering and review of radiographic studies and review of old charts Discharge - Discharge Clinical Impression: Metabolic acidosis, Hypovolemia, Agitation DKA (diabetic ketoacidoses) Qualifiers: Diabetes mellitus type: type 1 Diabetes mellitus complication detail: without coma Qualified Code(s): E10.10 - Type 1 diabetes mellitus with ketoacidosis without coma Condition: Critical Disposition: ADMITTED INPATIENT Admitting Provider: Hospitalist Unit Admitted: ICU
[2018-06-24] MEDS ORDERED: MIDAZOLAM 2 MG/2 ML INJ IM ONE (20:03)
--- NOTE | 2018-06-24 20:21 | RADIOLOGY REPORT (SQ) ---
EXAM DESCRIPTION: CHEST SINGLE VIEW COMPLETED DATE/TIME: 06/24/2018 8:11 pm REASON FOR STUDY: Confirm central line placement COMPARISON: None. NUMBER OF VIEWS: One view. TECHNIQUE: Single frontal radiographic view of the chest acquired. LIMITATIONS: None. FINDINGS: Central venous access catheter placed via right subclavian approach. Catheter tip at its tip not seen. In the IJ.. No pneumothorax. Radiographic appearance of the chest otherwise stable. IMPRESSION: Center venous access calf further via right subclavian approach into the IJ and the tip is not seen. TECHNICAL DOCUMENTATION: JOB ID: [id number] [employer]- All Rights Reserved Reading location - IP/workstation name: [email or web address]
[2018-06-24 20:56] LABS: VENOUS BLOOD HCO3 4.6 mmol/L (20-32); VENOUS BLOOD PCO2 23.5 mmHg (35-63)
[2018-06-24 21:04] LABS: VENOUS BLOOD PH 6.91 (7.30-7.42)
[2018-06-24 21:05] LABS: HEMATOCRIT 39.8 % (36.0-47.0); HEMOGLOBIN 10.1 g/dL (12.0-15.5); MEAN CORPUSCULAR HEMOGLOBIN 18.7 pg (27.0-33.4); MEAN CORPUSCULAR HGB CONC 25.5 g/dL (32.0-36.0); MEAN CORPUSCULAR VOLUME 74 fl (80-97); PLATELET COUNT 696 10^3/uL (150-450); RED BLOOD COUNT 5.41 10^6/uL (3.72-5.28); RED CELL DISTRIBUTION WIDTH 18.9 % (11.5-14.0); WHITE BLOOD COUNT 24.2 10^3/uL (4.0-10.5)
[2018-06-24 21:15] LABS: ALANINE AMINOTRANSFERASE 18 U/L (9-52); ALBUMIN 4.2 g/dL (3.5-5.0); ALKALINE PHOSPHATASE 171 U/L (38-126); ASPARTATE AMINO TRANSFERASE 15 U/L (14-36); BILIRUBIN,DIRECT 0.3 mg/dL (0.0-0.4); BILIRUBIN,TOTAL 0.3 mg/dL (0.2-1.3); BLOOD UREA NITROGEN 15 mg/dL (7-20); CALCIUM 9.9 mg/dL (8.4-10.2); CHLORIDE 100 mmol/L (98-107); POTASSIUM 5.5 mmol/L (3.6-5.0); SODIUM 138.7 mmol/L (137-145); TOTAL PROTEIN 7.3 g/dL (6.3-8.2)
[2018-06-24] MEDS ORDERED: DEXTROSE 5%-WATER 1000 ML 1,000 ML with SODIUM BICARBONATE 150 MEQ IV PRN ×2 (21:16)
[2018-06-24] MEDS ORDERED: SODIUM BICARBONATE 8.4% INJ 50 MEQ/50 ML DISP.SYRIN IV ONE ×2 (21:16→22:56)
[2018-06-24] MEDS ORDERED: RINGERS SOLUTION,LACTATED 2,000 ML IV ONE (21:17)
[2018-06-24 21:33] LABS: CARBON DIOXIDE < 5 mmol/L (22-30); GLUCOSE 843 mg/dL (75-110)
[2018-06-24] MEDS ORDERED: INSULIN REG, HUMAN 100 UNIT/ML 3 ML VIAL (PYX) IV ONE (21:37)
[2018-06-24 21:59] LABS: ABSOLUTE LYMPHOCYTES# (MANUAL) 3.6 10^3/uL (0.5-4.7); ABSOLUTE MONOCYTES # (MANUAL) 0.5 10^3/uL (0.1-1.4); ABSOLUTE NEUTROPHILS# (MANUAL) 19.8 10^3/uL (1.7-8.2); BASOPHILS % (MANUAL) 0 % (0-2); EOSINOPHILS % (MANUAL) 1 % (0-6); LYMPHOCYTES % (MANUAL) 15 % (13-45); MONOCYTES % (MANUAL) 2 % (3-13); SEGMENTED NEUTROPHILS % (MAN) 82 % (42-78); TOTAL CELLS COUNTED 100; TOXIC GRANULATION 1+; TOXIC VACUOLATION PRESENT
[2018-06-24 22:01] LABS: ANISOCYTOSIS 1+; BURR CELLS 2+; OVALOCYTES 2+; PLATELET COMMENT ADEQUATE; POIKILOCYTOSIS 3+; TEAR DROP CELLS SLIGHT
[2018-06-24] MEDS ORDERED: NS IV PRN (22:07)
[2018-06-24] MEDS ORDERED: POTASSI CL 20 MEQ/NS 1L 1,000 ML IV PRN (22:07)
[2018-06-24] MEDS ORDERED: PROMETHAZINE HCL 25 MG TABLET PO PRN (22:07)
[2018-06-24] MEDS ORDERED: METOCLOPRAMIDE HCL INJ/PF 10 MG/2 ML SDV IV PRN (22:07)
[2018-06-24] MEDS ORDERED: POTASSI CL IV PRN (22:07)
[2018-06-24] MEDS ORDERED: MAG HYDROX/AL HYDROX/SIMETH SUSP 30 ML UDCUP PO PRN (22:07)
[2018-06-24] MEDS ORDERED: DEXTROSE 50%-WATER 25 GM/50 ML DISP.SYRIN IV PRN ×2 (22:18)
[2018-06-24] MEDS ORDERED: NORMAL SALINE 100 ML with INSULIN REGULAR, HUMAN 100 UNIT IV PRN ×2 (22:18)
[2018-06-24] MEDS ORDERED: DEXTROSE 40% GEL 15 GM TUBE PO PRN ×2 (22:18)
[2018-06-24] MEDS ORDERED: GLUCAGON,HUMAN RECOMB 1 MG INJ IM PRN (22:18)
[2018-06-24 22:55] LABS: URINE AMPHETAMINES SCREEN NEGATIVE; URINE BARBITURATES SCREEN NEGATIVE; URINE BENZODIAZEPINES SCREEN NEGATIVE; URINE COCAINE SCREEN NEGATIVE; URINE MARIJUANA (THC) SCREEN NEGATIVE; URINE METHADONE SCREEN NEGATIVE; URINE PHENCYCLIDINE SCREEN NEGATIVE
[2018-06-24] MEDS ORDERED: PANTOPRAZOLE SODIUM 40 MG VIAL IV ONE (22:55)
[2018-06-24] MEDS ORDERED: MORPHINE SULFATE 10 MG/ML INJ ONE (23:13)
[2018-06-24] MEDS: MORPHINE SULFATE 10 MG/ML INJ IV PRN (23:15)
[2018-06-24] MEDS ORDERED: MORPHINE SULFATE 10 MG/ML INJ IV PRN (23:21)
--- NOTE | 2018-06-24 23:23 | PDOC H&P ---
History of Present Illness Admission Date/PCP: 06/24/18 22:11 Patient complains of: Nausea and vomiting History of Present Illness: RUMA HUITRON is a 23 year old female with medical history remarkable for diabetes mellitus type 1, multiple episodes of DKA, noncompliant with medications, bipolar disorder, alcohol abuse, alcohol induced pancreatitis. Patient at this point is critically ill and very poor historian. As per records patient has been pick From home by EMS for 36 hours of feeling sick with persistent nausea with nonbloody vomiting, generalized body aches, Upon arrival to the emergency department patient is tachycardic to the 150s, hypothermic with a temperature of 96.2 and a bear hugger was started, lethargic and mildly confused with a respiratory of 29x'. Patient was a difficult IV access and the ED attending initially tried to place a right IJ unsuccessfully, and placing a right femoral line. Laboratory consistent with DKA, initial blood sugar 843 with a bicarbonate 4.6, pH 6.9, white blood cells 24.5, patient has received a total of 4 L IV fluids, 50 mEq of IV bicarbonate followed by bicarbonate drip. Started insulin infusion. Unfortunately the patient had to be restrained as her management was challenging in the emergency department, was trying to get off the bed and pull the central line. Urinalysis negative for infection with 80 ketones, chest x-ray negative for infection. To be transferred to ICU Past Medical History Endocrine Medical History: Reports: Diabetes Mellitus Type 1 Psychiatric Medical History: Reports: Alcohol Dependency, Bipolar Disorder, Depression Past Surgical History Past Surgical History: Reports: None Social History Smoking Status: Never Smoker Frequency of Alcohol Use: Heavy - Patient states he quit drinking last September Hx Recreational Drug Use: No Drugs: None Hx Prescription Drug Abuse: No - Advance Directive Resuscitation Status: Full Code Family History Family History: Hypertension Parental Family History Reviewed: Yes - As above Children Family History Reviewed: NA Sibling(s) Family History Reviewed.: NA Medication/Allergy Home Medications: Gabapentin [Neurontin 300 mg Capsule] 300 mg PO DAILY@08,12 01/15/18 Gabapentin [Neurontin 300 mg Capsule] 600 mg PO QHS 01/15/18 Insulin Detemir [Levemir Flextouch] 26 units SQ Q12 02/05/18 Insulin Lispro [Humalog Insulin (Lispro) 100 unit/mL] 0 unit SUBCUT .SLD SCALE PRN 02/05/18 Acetaminophen [Tylenol 325 mg Tablet] 975 mg PO Q6HP PRN tablet 02/07/18 Urine Acetone Test,Strips [Ketone Test Strip] 1 each MC ASDIR PRN #30 strip 10/23 Allergies/Adverse Reactions: bupropion [From Wellbutrin] Allergy (Verified 01/14/18 19:03) diphenhydramine [From Benadryl] Allergy (Verified 01/14/18 19:03) Penicillins Allergy (Verified 01/14/18 19:03) Review of Systems ROS unobtainable: Other - Medically ill Review of Systems: As outlined above, rest very difficult to obtain as patient's critically ill condition. Physical Exam Vital Signs: Temp Pulse Resp BP Pulse Ox 97.7 F 35 H 123/64 100 06/24/18 22:46 06/24/18 22:46 06/24/18 22:46 06/24/18 22:46 Intake & Output 06/23/18 06/24/18 06/25/18 06:59 06:59 06:59 Output Total 1700 Balance -1700 Additional comments: General appearance: Well-developed, very agitated, alert but mildly confused, partially cooperates, and appears to be in no acute distress Head: Normocephalic Eyes: PEERL, EOMI, vision is grossly intact. Ears: External auditory canal and tympanic membranes clear, hearing grossly intact. Nose: No nasal discharge. Throat: Oral cavity and pharynx very dry. No inflammation, swelling, exudate or lesions. Neck: Neck supple, nontender without lymphadenopathy, masses or thyromegaly. Cardiac: Normal S1 and S2. No S3, S4 or murmurs. Rhythm is regular and very tachycardic. There is no peripheral edema, cyanosis or pallor. Extremities are cold and well perfused. Capillary refill is less than 2 seconds. No carotid bruits. Lungs: Clear to auscultation and percussion without rales, rhonchi, wheezing or diminished breath sounds. Not using accessory muscles. Abdomen: Positive bowel sounds. Soft. Nondistended, nontender. No guarding or rebound. No masses. No hepatosplenomegaly Extremities: No significant deformity or joint abnormality. No edema. Peripheral pulses intact. No varicosities. Neurological: Cranial nerves II through XII grossly intact. Moves all 4 extremities Skin: Skin pale, normal texture and turgor with mild rash in the armpits and right pubic area, dry. Psychiatric: The mental examination revealed the patient was oriented to person , place, and time. Results Laboratory Results: 06/24/18 06/24/18 06/24/18 18:35 18:35 20:42 WBC 24.2 H RBC 5.41 H Hgb 10.1 L Hct 39.8 MCV 74 L MCH 18.7 L MCHC 25.5 L RDW 18.9 H Plt Count 696 H Total Counted 100 Seg Neuts % (Manual) 82 H Lymphocytes % (Manual) 15 Monocytes % (Manual) 2 L Eosinophils % (Manual) 1 Basophils % (Manual) 0 Abs Neuts (Manual) 19.8 H Abs Lymphs (Manual) 3.6 Abs Monocytes (Manual) 0.5 Absolute Eos (Manual) 0.2 Abs Basophils (Manual) 0.0 Toxic Granulation 1+ Toxic Vacuolation PRESENT Poikilocytosis 3+ Anisocytosis 1+ VBG pH VBG pCO2 VBG HCO3 VBG Base Excess Sodium Potassium Chloride Carbon Dioxide BUN Creatinine Est GFR ( Amer) Est GFR (Non-Af Amer) Glucose Hemoglobin A1c % Lactic Acid Calcium Total Bilirubin Direct Bilirubin AST ALT Alkaline Phosphatase Total Protein Albumin Lipase Urine Color COLORLESS Urine Appearance CLEAR Urine pH 5.0 Ur Specific [place] 1.023 Urine Protein NEGATIVE Urine Glucose (UA) >=500 H Urine Ketones 80 H Urine Blood SMALL H Urine Nitrite NEGATIVE Urine Bilirubin NEGATIVE Urine Urobilinogen NEGATIVE Ur Leukocyte Esterase NEGATIVE Urine WBC (Auto) 0 Urine Bacteria (Auto) TRACE Squamous Epi Cells Auto 1 Urine Mucus (Auto) OCC Urine Ascorbic Acid NEGATIVE Urine Opiates Screen NEGATIVE Urine Methadone Screen NEGATIVE Ur Barbiturates Screen NEGATIVE Ur Phencyclidine Scrn NEGATIVE Ur Amphetamines Screen NEGATIVE U Benzodiazepines Scrn NEGATIVE Urine Cocaine Screen NEGATIVE U Marijuana (THC) Screen NEGATIVE Serum Alcohol 06/24/18 06/24/18 06/24/18 20:42 20:42 20:42 WBC RBC Hgb Hct MCV MCH MCHC RDW Plt Count Total Counted Seg Neuts % (Manual) Lymphocytes % (Manual) Monocytes % (Manual) Eosinophils % (Manual) Basophils % (Manual) Abs Neuts (Manual) Abs Lymphs (Manual) Abs Monocytes (Manual) Absolute Eos (Manual) Abs Basophils (Manual) Toxic Granulation Toxic Vacuolation Poikilocytosis Anisocytosis VBG pH VBG pCO2 VBG HCO3 VBG Base Excess Sodium 138.7 Potassium 5.5 H Chloride 100 Carbon Dioxide < 5 L* BUN 15 Creatinine 0.96 Est GFR ( Amer) > 60 Est GFR (Non-Af Amer) > 60 Glucose 843 H* Hemoglobin A1c % 13.1 H Lactic Acid 2.4 H Calcium 9.9 Total Bilirubin 0.3 Direct Bilirubin 0.3 AST 15 ALT 18 Alkaline Phosphatase 171 H Total Protein 7.3 Albumin 4.2 Lipase Urine Color Urine Appearance Urine pH Ur Specific [place] Urine Protein Urine Glucose (UA) Urine Ketones Urine Blood Urine Nitrite Urine Bilirubin Urine Urobilinogen Ur Leukocyte Esterase Urine WBC (Auto) Urine Bacteria (Auto) Squamous Epi Cells Auto Urine Mucus (Auto) Urine Ascorbic Acid Urine Opiates Screen Urine Methadone Screen Ur Barbiturates Screen Ur Phencyclidine Scrn Ur Amphetamines Screen U Benzodiazepines Scrn Urine Cocaine Screen U Marijuana (THC) Screen Serum Alcohol 06/24/18 06/24/18 06/24/18 20:42 20:42 20:42 WBC RBC Hgb Hct MCV MCH MCHC RDW Plt Count Total Counted Seg Neuts % (Manual) Lymphocytes % (Manual) Monocytes % (Manual) Eosinophils % (Manual) Basophils % (Manual) Abs Neuts (Manual) Abs Lymphs (Manual) Abs Monocytes (Manual) Absolute Eos (Manual) Abs Basophils (Manual) Toxic Granulation Toxic Vacuolation Poikilocytosis Anisocytosis VBG pH 6.91 L* VBG pCO2 23.5 L VBG HCO3 4.6 L VBG Base Excess -27.0 Sodium Potassium Chloride Carbon Dioxide BUN Creatinine Est GFR ( Amer) Est GFR (Non-Af Amer) Glucose Hemoglobin A1c % Lactic Acid Calcium Total Bilirubin Direct Bilirubin AST ALT Alkaline Phosphatase Total Protein Albumin Lipase 61.0 Urine Color Urine Appearance Urine pH Ur Specific [place] Urine Protein Urine Glucose (UA) Urine Ketones Urine Blood Urine Nitrite Urine Bilirubin Urine Urobilinogen Ur Leukocyte Esterase Urine WBC (Auto) Urine Bacteria (Auto) Squamous Epi Cells Auto Urine Mucus (Auto) Urine Ascorbic Acid Urine Opiates Screen Urine Methadone Screen Ur Barbiturates Screen Ur Phencyclidine Scrn Ur Amphetamines Screen U Benzodiazepines Scrn Urine Cocaine Screen U Marijuana (THC) Screen Serum Alcohol < 10 Impressions: Chest X-Ray 06/24/18 19:25 IMPRESSION: Center venous access calf further via right subclavian approach into the IJ and the tip is not seen. Assessment & Plan - Diagnosis (1) DKA (diabetic ketoacidoses) Qualifiers: Diabetes mellitus type: type 1 Diabetes mellitus complication detail: without coma Qualified Code(s): E10.10 - Type 1 diabetes mellitus with ketoacidosis without coma Is this a current diagnosis for this admission?: Yes Plan: Patient with diabetes mellitus type 2, noncompliant with medication, with symptoms for the last 36 hours with laboratory and symptomatology compatible with DKA, blood sugar 843, pH 6.9, bicarbonate 4.6, anion gap 38.5. Patient has received a total of 4 L of IV fluids, will go ahead and give HER-2 more liters of IV fluids. Has been started on bicarbonate drip at 150 mEq and given an extra 50 mEq IV push in the ED. Accu-Cheks q. one hour. Basic metabolic panel, lactic acid, VBG every 4 hours. Hypoglycemia protocol placed. Will replete electrolytes as needed. We will give 2 more liters of normal saline with 40 mEq of potassium chloride, followed by 125 cc/h. Unknown when was the last time patient use her diabetic medications. Hemoglobin A1c 13 (2) Metabolic acidosis Is this a current diagnosis for this admission?: Yes Plan: Anion gap metabolic acidosis secondary to DKA. (3) Lactic acidosis Is this a current diagnosis for this admission?: Yes Plan: Lactic acid 2.4, likely secondary to her DKA and severe dehydration. We are ordering lactic acid every 4 hours. (4) Hyperkalemia Is this a current diagnosis for this admission?: Yes Plan: Potassium 5.5, likely secondary to her DKA, it will improve after blood sugar decrease with insulin infusion. (5) Leukocytosis Qualifiers: Leukocytosis type: unspecified Qualified Code(s): D72.829 - Elevated white blood cell count, unspecified Is this a current diagnosis for this admission?: Yes Plan: White blood cells count 24.5, likely secondary to her DKA with severe dehydration, doubt infection. Chest x-ray negative for infiltrates, urinalysis negative for infection. Will aggressively hydrate and reassess CBC with differential in the morning. Do not feel patient needs to be a started on antibiotics. (6) DVT prophylaxis Is this a current diagnosis for this admission?: Yes Plan: Heparin - Time Time Spent: 50 to 70 Minutes - Inpatient Certification Based on my medical assessment, after consideration of the patient's comorbidities, presenting symptoms, or acuity I expect that the services needed warrant INPATIENT care.: Yes I certify that my determination is in accordance with my understanding of Medicare's requirements for reasonable and necessary INPATIENT services [42 CFR 412.3e].: Yes Medical Necessity: Risk of Complication if Not Cared For in Hospital - Severe metabolic acidosis with cardiac arrest and that
[2018-06-24 23:33] LABS: ARTERIAL BLOOD BASE EXCESS -26.5 mmol/L; ARTERIAL BLOOD FIO2 ROOM AIR; ARTERIAL BLOOD HCO3 3.7 mmol/L (20-24); ARTERIAL BLOOD O2 SATURATION 91.4 % (94-98); ARTERIAL BLOOD PCO2 16.6 mmHg (35-45); ARTERIAL BLOOD PO2 91.3 mmHg (80-100); ARTERIAL BLOOD TOTAL CO2 4.2 mmol/L (21-25)
[2018-06-24 23:46] LABS: BLOOD UREA NITROGEN 13 mg/dL (7-20); CALCIUM 8.7 mg/dL (8.4-10.2); CHLORIDE 109 mmol/L (98-107); SODIUM 143.4 mmol/L (137-145)
[2018-06-24 23:47] LABS: ARTERIAL BLOOD PH 6.96 (7.35-7.45)
[2018-06-24 23:54] LABS: GLUCOSE 531 mg/dL (75-110)
[2018-06-25 00:04] LABS: POTASSIUM 4.1 mmol/L (3.6-5.0)
[2018-06-25 00:15] LABS: CARBON DIOXIDE < 5 mmol/L (22-30)
[2018-06-25] MEDS ORDERED: SODIUM BICARBONATE 8.4% INJ 50 MEQ/50 ML DISP.SYRIN IV ONE (02:10)
[2018-06-25 02:41] LABS: BLOOD UREA NITROGEN 13 mg/dL (7-20); CHLORIDE 114 mmol/L (98-107); GLUCOSE 218 mg/dL (75-110); POTASSIUM 3.4 mmol/L (3.6-5.0); SODIUM 147.1 mmol/L (137-145)
[2018-06-25 02:51] LABS: ANION GAP 27 (5-19); CARBON DIOXIDE 6 mmol/L (22-30)
[2018-06-25] MEDS: MORPHINE SULFATE 10 MG/ML INJ IV PRN ×4 (03:08→20:57)
[2018-06-25] MEDS ORDERED: DEXTROSE 5%-1/2 NORMAL SALINE 1,000 ML IV PRN (04:49)
[2018-06-25] MEDS ORDERED: SODIUM BICARBONATE 8.4% INJ 50 MEQ/50 ML DISP.SYRIN ONE ×2 (04:58→18:41)
[2018-06-25] MEDS: HEPARIN SOD (PORCINE) 5,000 UNIT/ML 1 ML SYRINGE SUBCUT SCH ×3 (05:58→21:36)
[2018-06-25 06:04] LABS: HEMATOCRIT 24.7 % (36.0-47.0); MEAN CORPUSCULAR HEMOGLOBIN 18.9 pg (27.0-33.4); MEAN CORPUSCULAR HGB CONC 29.6 g/dL (32.0-36.0); PLATELET COUNT 360 10^3/uL (150-450); RED BLOOD COUNT 3.87 10^6/uL (3.72-5.28); WHITE BLOOD COUNT 17.6 10^3/uL (4.0-10.5)
[2018-06-25 06:10] LABS: ALANINE AMINOTRANSFERASE 18 U/L (9-52); ALBUMIN 2.4 g/dL (3.5-5.0); ALKALINE PHOSPHATASE 101 U/L (38-126); ANION GAP 14 (5-19); ASPARTATE AMINO TRANSFERASE 13 U/L (14-36); BILIRUBIN,DIRECT 0.2 mg/dL (0.0-0.4); BILIRUBIN,TOTAL 0.2 mg/dL (0.2-1.3); BLOOD UREA NITROGEN 11 mg/dL (7-20); CALCIUM 7.2 mg/dL (8.4-10.2); CHLORIDE 119 mmol/L (98-107); GLUCOSE 216 mg/dL (75-110); SODIUM 148.8 mmol/L (137-145); TOTAL PROTEIN 4.8 g/dL (6.3-8.2)
[2018-06-25 06:21] LABS: POTASSIUM 4.4 mmol/L (3.6-5.0)
[2018-06-25 06:22] LABS: CARBON DIOXIDE 16 mmol/L (22-30)
[2018-06-25 06:35] LABS: MEAN CORPUSCULAR VOLUME 64 fl (80-97)
[2018-06-25 06:40] LABS: HEMOGLOBIN 7.3 g/dL (12.0-15.5)
[2018-06-25] MEDS ORDERED: DEXTROSE 5%-1/2 NORMAL SALINE 500 ML IV ONE (07:15)
[2018-06-25] MEDS ORDERED: NORMAL SALINE 250 ML IV PRN ×2 (07:58)
[2018-06-25] MEDS ORDERED: ACETAMINOPHEN 325 MG TABLET PO PRN (07:58)
[2018-06-25 08:03] LABS: ARTERIAL BLOOD H2CO3 0.57 mmol/L (1.05-1.35); ARTERIAL BLOOD HCO3 8.8 mmol/L (20-24); ARTERIAL BLOOD O2 SATURATION 98.3 % (94-98); ARTERIAL BLOOD PH 7.29 (7.35-7.45); ARTERIAL BLOOD PO2 129.1 mmHg (80-100); ARTERIAL BLOOD TOTAL CO2 9.4 mmol/L (21-25)
[2018-06-25 08:05] LABS: ARTERIAL BLOOD FIO2 ROOM AIR; ARTERIAL BLOOD PCO2 18.9 mmHg (35-45)
[2018-06-25 08:30] LABS: APPEARANCE,URINE CLEAR; BILIRUBIN,URINE NEGATIVE (NEGATIVE); COLOR,URINE COLORLESS; GLUCOSE, URINE >=500 mg/dL (NEGATIVE); KETONES,URINE 80 mg/dL (NEGATIVE); LEUKOCYTE ESTERASE,URINE NEGATIVE (NEGATIVE); NITRITE,URINE NEGATIVE (NEGATIVE); PROTEIN,URINE 30 mg/dL (NEGATIVE); URINE SPECIFIC GRAVITY 1.014; UROBILINOGEN,URINE NEGATIVE mg/dL (<2.0)
[2018-06-25] MEDS ORDERED: GLUCAGON,HUMAN RECOMB 1 MG INJ IM PRN ×2 (08:57→17:59)
[2018-06-25] MEDS ORDERED: DEXTROSE 50%-WATER SYRINGE 25 GM/50 ML DOSE IV PRN ×2 (08:57→17:59)
[2018-06-25] MEDS ORDERED: DEXTROSE 40% GEL 15 GM TUBE X 2 PO PRN ×2 (08:57→17:59)
[2018-06-25] MEDS ORDERED: DEXTROSE 50%-WATER SYRINGE 12.5 GM/25 ML DOSE IV PRN ×2 (08:57→17:59)
[2018-06-25] MEDS ORDERED: DEXTROSE 40% GEL 15 GM TUBE PO PRN ×2 (08:57→17:59)
[2018-06-25] MEDS: INSULIN LISPRO 100 UNIT/ML 3 ML VIAL SUBCUT PRN ×2 (09:29→11:59)
[2018-06-25] MEDS: PANTOPRAZOLE SODIUM 40 MG VIAL IV SCH ×2 (09:32→21:37)
--- NOTE | 2018-06-25 09:46 | PDOC PROGRESS REPORT ---
Subjective Progress Note for:: 06/25/18 Subjective:: RUMA HUITRON is a 23 year old female who presented to the emergency room with a 1-1/2-day history of nausea vomiting and generalized malaise. She is a known type I diabetic and has frequent prior admissions for diabetic ketoacidosis. She is well known to be noncompliant and her past medical history includes the pertinent problems of alcohol abuse and alcohol induced acute pancreatitis. On admission to the emergency room she was tachycardic, tachypneic and mildly hypothermic. ABG showed a pH of 6.9 with bicarbonate of 4.6 and her blood sugar was 843. She was admitted to the ICU for further care where she was treated with IV bicarbonate and an insulin drip. 06/25/2018: The patient was treated with an insulin drip and this was eventually discontinued when her blood sugar approached 300. At that point she was started on IV fluids with D5W and was continued on q. 4-hour basic metabolic profiles and high volume IV fluids were maintained. This morning she is noted to have a hemoglobin of 7.3 and she indicates that she feels like it is difficult to focus her thoughts and to keep her focus on her interactions with others. She is not nauseated and is willing to try clear liquids this morning which will be advanced as tolerated. Blood gases were repeated this morning and showed a pH of 7.29 and a bicarbonate of 8.8. A bicarbonate infusion will be started and patient will have a every 4 hours sliding scale Humalog insulin with every 4 hours Accu-Cheks. A basic metabolic profile be checked at 4 PM today as well as an arterial blood gas with both results called to me. She will receive a 1 unit transfusion of packed red blood cells to correct her anemia. She continues to be borderline hypotensive with systolic blood pressures in the 80s and 90s. Her mean arterial pressure is in the 60s. Pressors will not be used at this point unless the patient's hemodynamic state fails to respond to correction of acidosis and anemia. Reason For Visit: DKA Physical Exam Vital Signs: Temp Pulse Resp BP Pulse Ox 98.4 F 117 H 16 93/51 L 100 06/25/18 07:46 06/25/18 07:46 06/25/18 07:46 06/25/18 07:46 06/25/18 07:46 Intake & Output 06/23/18 06/24/18 06/25/18 23:59 23:59 23:59 Output Total 1700 1175 Balance -1700 -1175 Weight 69.2 kg 73.2 kg General appearance: PRESENT: no acute distress, cooperative, other - Overweight Head exam: PRESENT: atraumatic, normocephalic Eye exam: PRESENT: conjunctiva pink, EOMI Ear exam: PRESENT: normal external ear exam. ABSENT: drainage Mouth exam: PRESENT: neck supple, tongue midline Neck exam: ABSENT: thyromegaly, tracheal deviation Respiratory exam: PRESENT: clear to auscultation lam, symmetrical, unlabored Cardiovascular exam: PRESENT: RRR, tachycardia, other - No murmurs clicks gallops or rubs noted. Pulses: PRESENT: normal radial pulses, normal dorsalis pedis pul Vascular exam: PRESENT: normal capillary refill. ABSENT: pallor GI/Abdominal exam: PRESENT: normal bowel sounds, soft, tenderness - Mild epigastric tenderness on palpation. ABSENT: distended Rectal exam: PRESENT: deferred Extremities exam: ABSENT: joint swelling, pedal edema Musculoskeletal exam: PRESENT: full ROM, normal inspection Neurological exam: PRESENT: altered - Mildly obtunded with slow verbal responses and a poor focus on answering medical questions., oriented to person, CN II-XII grossly intact. ABSENT: motor sensory deficit Psychiatric exam: PRESENT: unusual affect - Mildly confused, other - Poor mental focus Skin exam: PRESENT: dry, intact, pallor - Mild pallor noted, warm Results Laboratory Results: 06/25/18 05:50 06/25/18 05:50 06/24/18 06/24/18 06/24/18 23:17 23:17 23:17 WBC RBC Hgb Hct MCV MCH MCHC RDW Plt Count Carbonic Acid 0.50 L HCO3/H2CO3 Ratio 7:1 ABG pH 6.96 L* ABG pCO2 16.6 L* ABG pO2 91.3 ABG HCO3 3.7 L ABG O2 Saturation 91.4 L ABG Base Excess -26.5 FiO2 ROOM AIR Sodium 143.4 Potassium 4.1 D Chloride 109 H Carbon Dioxide < 5 L* Anion Gap Not Reportable BUN 13 Creatinine 0.72 Est GFR ( Amer) > 60 Est GFR (Non-Af Amer) > 60 Glucose 531 H* Lactic Acid 4.2 H Calcium 8.7 Total Bilirubin AST ALT Alkaline Phosphatase Total Protein Albumin Urine Color Urine Appearance Urine pH Ur Specific [place] Urine Protein Urine Glucose (UA) Urine Ketones Urine Blood Urine Nitrite Ur Leukocyte Esterase Urine WBC (Auto) Urine RBC (Auto) 06/25/18 06/25/18 06/25/18 02:05 05:50 05:50 WBC 17.6 H RBC 3.87 Hgb 7.3 L D Hct 24.7 L MCV 64 L D MCH 18.9 L MCHC 29.6 L RDW 18.0 H Plt Count 360 Carbonic Acid HCO3/H2CO3 Ratio ABG pH ABG pCO2 ABG pO2 ABG HCO3 ABG O2 Saturation ABG Base Excess FiO2 Sodium 147.1 H 148.8 H Potassium 3.4 L 4.4 D Chloride 114 H 119 H Carbon Dioxide 6 L* 16 L D Anion Gap 27 H 14 BUN 13 11 Creatinine 0.84 0.52 Est GFR ( Amer) > 60 > 60 Est GFR (Non-Af Amer) > 60 > 60 Glucose 218 H 216 H Lactic Acid Calcium 9.0 7.2 L Total Bilirubin 0.2 AST 13 L ALT 18 Alkaline Phosphatase 101 Total Protein 4.8 L Albumin 2.4 L Urine Color Urine Appearance Urine pH Ur Specific [place] Urine Protein Urine Glucose (UA) Urine Ketones Urine Blood Urine Nitrite Ur Leukocyte Esterase Urine WBC (Auto) Urine RBC (Auto) 06/25/18 06/25/18 07:53 08:15 WBC RBC Hgb Hct MCV MCH MCHC RDW Plt Count Carbonic Acid 0.57 L HCO3/H2CO3 Ratio 15:1 ABG pH 7.29 L ABG pCO2 18.9 L* ABG pO2 129.1 H ABG HCO3 8.8 L ABG O2 Saturation 98.3 H ABG Base Excess -16.0 FiO2 ROOM AIR Sodium Potassium Chloride Carbon Dioxide Anion Gap BUN Creatinine Est GFR ( Amer) Est GFR (Non-Af Amer) Glucose Lactic Acid Calcium Total Bilirubin AST ALT Alkaline Phosphatase Total Protein Albumin Urine Color COLORLESS Urine Appearance CLEAR Urine pH 5.0 Ur Specific [place] 1.014 Urine Protein 30 H Urine Glucose (UA) >=500 H Urine Ketones 80 H Urine Blood SMALL H Urine Nitrite NEGATIVE Ur Leukocyte Esterase NEGATIVE Urine WBC (Auto) 0 Urine RBC (Auto) 9 Impressions: Chest X-Ray 06/24/18 19:25 IMPRESSION: Center venous access calf further via right subclavian approach into the IJ and the tip is not seen. Assessment & Plan - Diagnosis (1) DKA (diabetic ketoacidoses) Qualifiers: Diabetes mellitus type: type 1 Diabetes mellitus complication detail: without coma Qualified Code(s): E10.10 - Type 1 diabetes mellitus with ketoacidosis without coma Is this a current diagnosis for this admission?: Yes Plan: 06/25/2018: Patient will be started back on a bicarb drip over the next 8 hours. Recheck BMP and ABG's at 4 PM. Q4hr accu-checks and sliding scale humalog insulin to maintain glycemic control. Start clear liquid diet and advance to a carb 4 diet as tolerated. (2) Anemia Qualifiers: Anemia type: unspecified type Qualified Code(s): D64.9 - Anemia, unspecified Is this a current diagnosis for this admission?: Yes Plan: Transfuse 1 unit PRBC's EVELIA. Follow-up cbc post-transfusion and daily in AM. (3) Hypotension Is this a current diagnosis for this admission?: Yes Plan: Most likely all VS abnormalities (hypotension & tachycardia) are multifactorial : due to hypovolemia, ketoacidosis and anemia. Volume has been corrected with good urine outputs noted. Correction of the acidosis and the anemia factors is underway. Consider vasopressors if needed. Reassess efficacy of this plan with 4 PM lab work and monitoring VS and mental status. (4) Hypovolemia Is this a current diagnosis for this admission?: Yes Plan: Most likely all VS abnormalities (hypotension & tachycardia) are multifactorial : due to hypovolemia, ketoacidosis and anemia. Volume has been corrected with good urine outputs noted. Correction of the acidosis and the anemia factors is underway. Consider vasopressors if needed. Reassess efficacy of this plan with 4 PM lab work and monitoring VS and mental status. (5) Tachycardia Is this a current diagnosis for this admission?: Yes Plan: Most likely all VS abnormalities (hypotension & tachycardia) are multifactorial : due to hypovolemia, ketoacidosis and anemia. Volume has been corrected with good urine outputs noted. Correction of the acidosis and the anemia factors is underway. Consider vasopressors if needed. Reassess efficacy of this plan with 4 PM lab work and monitoring VS and mental status. - Time Time Spent with patient: 15-24 minutes Medications reviewed and adjusted accordingly: Yes
[2018-06-25] MEDS: DEXTROSE 5%-WATER 1000 ML 1,000 ML with SODIUM BICARBONATE 150 MEQ IV PRN ×4 (09:56→14:22)
[2018-06-25] MEDS ORDERED: INSULIN LISPRO 100 UNIT/ML 3 ML VIAL SUBCUT SCH (10:00)
--- NOTE | 2018-06-25 10:39 | EKG REPORT ---
SEVERITY:- BORDERLINE ECG - SINUS TACHYCARDIA BORDERLINE PROLONGED QT INTERVAL : Confirmed by: Lamin Bonilla 25-Jun-2018 10:38:50
[2018-06-25] MEDS ORDERED: INSULIN DETEMIR 100 UNIT/ML 3 ML PEN SUBCUT ONE (15:30)
[2018-06-25] MEDS ORDERED: INSULIN LISPRO 100 UNIT/ML 3 ML VIAL IV ONE (15:30)
[2018-06-25 16:13] LABS: ABSOLUTE LYMPHOCYTES (AUTO) 1.5 10^3/uL (0.5-4.7); ABSOLUTE MONOCYTES (AUTO) 1.4 10^3/uL (0.1-1.4); ABSOLUTE NEUT (AUTO) 12.5 10^3/uL (1.7-8.2); BASOPHILS % (AUTO) 0.2 % (0-2); EOSINOPHILS % (AUTO) 0.2 % (0-6); HEMATOCRIT 30.2 % (36.0-47.0); HEMOGLOBIN 8.8 g/dL (12.0-15.5); LYMPHOCYTES % (AUTO) 9.4 % (13-45); MEAN CORPUSCULAR HEMOGLOBIN 20.1 pg (27.0-33.4); MEAN CORPUSCULAR HGB CONC 29.2 g/dL (32.0-36.0); MONOCYTES % (AUTO) 9.3 % (3-13); PLATELET COUNT 380 10^3/uL (150-450); RED BLOOD COUNT 4.39 10^6/uL (3.72-5.28); RED CELL DISTRIBUTION WIDTH 20.4 % (11.5-14.0); SEGMENTED NEUTROPHILS % (AUTO) 80.9 % (42-78); TOTAL CELLS COUNTED % (AUTO) 100 %; WHITE BLOOD COUNT 15.5 10^3/uL (4.0-10.5)
[2018-06-25 16:14] LABS: MEAN CORPUSCULAR VOLUME 69 fl (80-97)
[2018-06-25 16:38] LABS: ANION GAP 18 (5-19); BLOOD UREA NITROGEN 7 mg/dL (7-20); CALCIUM 7.8 mg/dL (8.4-10.2); CARBON DIOXIDE 14 mmol/L (22-30); CHLORIDE 111 mmol/L (98-107); SODIUM 143.3 mmol/L (137-145)
[2018-06-25 16:51] LABS: POTASSIUM 3.2 mmol/L (3.6-5.0)
[2018-06-25 16:53] LABS: GLUCOSE 491 mg/dL (75-110)
[2018-06-25 17:03] LABS: ARTERIAL BLOOD BASE EXCESS -8.9 mmol/L; ARTERIAL BLOOD H2CO3 0.84 mmol/L (1.05-1.35); ARTERIAL BLOOD HCO3 15.4 mmol/L (20-24); ARTERIAL BLOOD O2 SATURATION 98.7 % (94-98); ARTERIAL BLOOD PH 7.36 (7.35-7.45); ARTERIAL BLOOD PO2 137.6 mmHg (80-100); ARTERIAL BLOOD TOTAL CO2 16.3 mmol/L (21-25)
[2018-06-25 17:04] LABS: ARTERIAL BLOOD FIO2 ROOM AIR
[2018-06-25] MEDS ORDERED: DEXTROSE 5%-WATER 1000 ML 1,000 ML with SODIUM BICARBONATE 150 MEQ IV PRN ×2 (17:54)
[2018-06-25] MEDS ORDERED: INSULIN, REGULAR 100 UNIT/100 ML NORMAL SALINE IV PRN ×2 (17:59)
[2018-06-25] MEDS ORDERED: INSULIN REG, HUMAN 100 UNIT/ML 3 ML VIAL (PYX) ONE (18:06)
[2018-06-25] MEDS: POTASSIUM CHLORIDE 20 MEQ/50 ML RTU IV SCH ×2 (18:08→19:33)
[2018-06-25] MEDS: METOCLOPRAMIDE HCL INJ/PF 10 MG/2 ML SDV IV PRN (20:33)
[2018-06-25] MEDS: INSULIN DETEMIR 100 UNIT/ML 3 ML PEN SUBCUT SCH (21:56)
[2018-06-25] MEDS: DEXTROSE 5%-1/2 NORMAL SALINE 1,000 ML IV PRN (22:00)
[2018-06-26 00:14] LABS: BLOOD UREA NITROGEN 4 mg/dL (7-20); CALCIUM 7.7 mg/dL (8.4-10.2); CHLORIDE 106 mmol/L (98-107); GLUCOSE 156 mg/dL (75-110); SODIUM 143.1 mmol/L (137-145)
[2018-06-26 00:29] LABS: ANION GAP 12 (5-19)
[2018-06-26 00:30] LABS: CARBON DIOXIDE 25 mmol/L (22-30)
[2018-06-26 00:32] LABS: POTASSIUM 2.6 mmol/L (3.6-5.0)
[2018-06-26] MEDS ORDERED: INSULIN GLARGINE,HUM.REC.ANLOG 300 UNIT/3 ML INSULN.PEN SUBCUT ONE (01:00)
[2018-06-26] MEDS ORDERED: INSULIN GLARGINE,HUM.REC.ANLOG 1,000 UNIT/10 ML UNIT SUBCUT ONE (01:09)
[2018-06-26] MEDS: MORPHINE SULFATE 10 MG/ML INJ IV PRN ×2 (01:17→23:58)
[2018-06-26] MEDS: POTASSIUM CHLORIDE 20 MEQ/50 ML RTU IV SCH ×5 (01:19→23:27)
[2018-06-26] MEDS: INSULIN LISPRO 100 UNIT/ML 3 ML VIAL SUBCUT PRN ×4 (02:34→19:27)
[2018-06-26] MEDS: ACETAMINOPHEN 325 MG TABLET PO PRN ×3 (02:34→23:26)
[2018-06-26] MEDS: DEXTROSE 5%-1/2 NORMAL SALINE 1,000 ML IV PRN ×2 (05:34→14:33)
[2018-06-26] MEDS: METOCLOPRAMIDE HCL INJ/PF 10 MG/2 ML SDV IV PRN (05:36)
[2018-06-26 05:52] LABS: HEMATOCRIT 26.3 % (36.0-47.0); HEMOGLOBIN 8.3 g/dL (12.0-15.5); MEAN CORPUSCULAR HEMOGLOBIN 20.7 pg (27.0-33.4); MEAN CORPUSCULAR HGB CONC 31.5 g/dL (32.0-36.0); MEAN CORPUSCULAR VOLUME 66 fl (80-97); PLATELET COUNT 323 10^3/uL (150-450); RED CELL DISTRIBUTION WIDTH 20.9 % (11.5-14.0); WHITE BLOOD COUNT 10.2 10^3/uL (4.0-10.5)
[2018-06-26 06:11] LABS: ANION GAP 7 (5-19); BLOOD UREA NITROGEN 4 mg/dL (7-20); CALCIUM 7.4 mg/dL (8.4-10.2); CARBON DIOXIDE 28 mmol/L (22-30); CHLORIDE 107 mmol/L (98-107); GLUCOSE 133 mg/dL (75-110); POTASSIUM 3.3 mmol/L (3.6-5.0); SODIUM 141.7 mmol/L (137-145)
[2018-06-26] MEDS: MAGNESIUM SULFATE/D5W 1 GM/100 ML RTUPB IV SCH ×3 (06:54→11:36)
[2018-06-26] MEDS: POTASSIUM CHLORIDE 20 MEQ/15 ML UDCUP PO ONE ×2 (06:55→07:02)
[2018-06-26] MEDS ORDERED: POTASSIUM CHLORIDE 20 MEQ/50 ML RTU IV ONE (07:30)
[2018-06-26] MEDS ORDERED: MAGNESIUM SULFATE/D5W 1 GM/100 ML RTUPB IV SCH (08:30)
[2018-06-26] MEDS: POTASSI CL 20 MEQ/50 ML RIDER 20 MEQ/50 ML RTUPB IV SCH ×2 (10:14→11:06)
[2018-06-26] MEDS: INSULIN DETEMIR 100 UNIT/ML 3 ML PEN SUBCUT SCH ×2 (10:24→21:26)
[2018-06-26] MEDS: ENOXAPARIN SODIUM INJ 40 MG/0.4 ML DISP.SYRIN SUBCUT SCH ×2 (10:25→11:02)
[2018-06-26] MEDS: SUCRALFATE SUSP 1 GM/10 ML UDCUP PO SCH ×3 (11:23→21:19)
[2018-06-26] MEDS: INSULIN LISPRO 100 UNIT/ML 3 ML VIAL SUBCUT SCH ×2 (11:24→16:07)
--- NOTE | 2018-06-26 11:24 | PDOC PROGRESS REPORT ---
Subjective Progress Note for:: 06/26/18 Subjective:: RUMA HUITRON is a 23 year old female who presented to the emergency room with a 1-1/2-day history of nausea vomiting and generalized malaise. She is a known type I diabetic and has frequent prior admissions for diabetic ketoacidosis. She is well known to be noncompliant and her past medical history includes the pertinent problems of alcohol abuse and alcohol induced acute pancreatitis. On admission to the emergency room she was tachycardic, tachypneic and mildly hypothermic. ABG showed a pH of 6.9 with bicarbonate of 4.6 and her blood sugar was 843. She was admitted to the ICU for further care where she was treated with IV bicarbonate and an insulin drip. 06/25/2018: The patient was treated with an insulin drip and this was eventually discontinued when her blood sugar approached 300. At that point she was started on IV fluids with D5W and was continued on q. 4-hour basic metabolic profiles and high volume IV fluids were maintained. This morning she is noted to have a hemoglobin of 7.3 and she indicates that she feels like it is difficult to focus her thoughts and to keep her focus on her interactions with others. She is not nauseated and is willing to try clear liquids this morning which will be advanced as tolerated. Blood gases were repeated this morning and showed a pH of 7.29 and a bicarbonate of 8.8. A bicarbonate infusion will be started and patient will have a every 4 hours sliding scale Humalog insulin with every 4 hours Accu-Cheks. A basic metabolic profile be checked at 4 PM today as well as an arterial blood gas with both results called to me. She will receive a 1 unit transfusion of packed red blood cells to correct her anemia. She continues to be borderline hypotensive with systolic blood pressures in the 80s and 90s. Her mean arterial pressure is in the 60s. Pressors will not be used at this point unless the patient's hemodynamic state fails to respond to correction of acidosis and anemia. 06/26/2018: Ruma is doing considerably better with her blood pressure having responded to her transfusion and treatment of her acidosis. She remains mildly tachycardic in the 110s without evidence of fever. Patient continues to be unable to take a normal diet but she does tolerate some oral fluids. She has not had vomiting but she planes of general malaise and anorexia. Her arterial blood gases demonstrate that her pH has returned to normal and her metabolic profile shows that her CO2 level is now normalized though she does have a mild hypokalemia and a moderate hypomagnesemia which are being corrected with IV electrolyte replacement. I have discussed utilizing Tylenol suppositories to help with her generalized malaise and have also indicated that we will initiate a scheduled Reglan, Pepcid and Carafate to help with her nausea and also hopefully in doing so help to alleviate her anorexia. We will encourage her to increase her activity and she will possibly be moved to the medical floor today based on bed availability. Reason For Visit: DKA Physical Exam Vital Signs: Temp Pulse Resp BP Pulse Ox 99.0 F 119 H 16 116/74 97 06/26/18 10:00 06/26/18 08:00 06/26/18 10:00 06/26/18 09:20 06/26/18 10:00 Intake & Output 06/24/18 06/25/18 06/26/18 23:59 23:59 23:59 Intake Total 4107 1146 Output Total 1700 5515 230 Balance -1700 -1408 916 Weight 69.2 kg 73.2 kg 77 kg General appearance: PRESENT: cooperative, mild distress - General malaise and nausea with anorexia Head exam: PRESENT: atraumatic, normocephalic Eye exam: PRESENT: conjunctiva pink, EOMI Ear exam: PRESENT: normal external ear exam. ABSENT: bleeding Mouth exam: PRESENT: dry mucosa, neck supple Neck exam: ABSENT: thyromegaly, tracheal deviation Respiratory exam: PRESENT: clear to auscultation lam, symmetrical, unlabored Cardiovascular exam: PRESENT: RRR, other Vascular exam: PRESENT: normal capillary refill. ABSENT: pallor GI/Abdominal exam: PRESENT: normal bowel sounds, soft Rectal exam: PRESENT: deferred Extremities exam: ABSENT: joint swelling, pedal edema Musculoskeletal exam: ABSENT: deformity, dislocation Neurological exam: PRESENT: alert, oriented to person, oriented to place, oriented to time, oriented to situation, CN II-XII grossly intact. ABSENT: motor sensory deficit Psychiatric exam: PRESENT: unusual affect - Complaining and somewhat passive- aggressive in her affect, mood is somewhat subdued and quite possibly mildly depressed. Skin exam: PRESENT: dry, intact, warm. ABSENT: jaundice, rash, urticaria Results Laboratory Results: 06/26/18 05:45 06/26/18 05:45 06/25/18 06/25/18 06/25/18 15:56 15:56 15:56 WBC 15.5 H RBC 4.39 Hgb 8.8 L Hct 30.2 L MCV 69 L D MCH 20.1 L MCHC 29.2 L RDW 20.4 H Plt Count 380 Seg Neutrophils % 80.9 H Lymphocytes % 9.4 L Monocytes % 9.3 Eosinophils % 0.2 Basophils % 0.2 Absolute Neutrophils 12.5 H Absolute Lymphocytes 1.5 Absolute Monocytes 1.4 Absolute Eosinophils 0.0 Absolute Basophils 0.0 Carbonic Acid HCO3/H2CO3 Ratio ABG pH ABG pCO2 ABG pO2 ABG HCO3 ABG O2 Saturation ABG Base Excess FiO2 Sodium 143.3 Potassium 3.2 L D Chloride 111 H Carbon Dioxide 14 L Anion Gap 18 BUN 7 Creatinine 0.50 L Est GFR ( Amer) > 60 Est GFR (Non-Af Amer) > 60 Glucose 491 H* Calcium 7.8 L Magnesium 1.4 L 06/25/18 06/25/18 06/25/18 15:59 18:30 19:40 WBC RBC Hgb Hct MCV MCH MCHC RDW Plt Count Seg Neutrophils % Lymphocytes % Monocytes % Eosinophils % Basophils % Absolute Neutrophils Absolute Lymphocytes Absolute Monocytes Absolute Eosinophils Absolute Basophils Carbonic Acid 0.84 L HCO3/H2CO3 Ratio 18:1 ABG pH 7.36 ABG pCO2 28.0 L ABG pO2 137.6 H ABG HCO3 15.4 L ABG O2 Saturation 98.7 H ABG Base Excess -8.9 FiO2 ROOM AIR Sodium Potassium Chloride Carbon Dioxide Anion Gap BUN Creatinine Est GFR ( Amer) Est GFR (Non-Af Amer) Glucose 608 H* 510 H* Calcium Magnesium 06/25/18 06/26/18 06/26/18 23:45 05:45 05:45 WBC 10.2 RBC 4.00 Hgb 8.3 L Hct 26.3 L MCV 66 L MCH 20.7 L MCHC 31.5 L RDW 20.9 H Plt Count 323 Seg Neutrophils % Lymphocytes % Monocytes % Eosinophils % Basophils % Absolute Neutrophils Absolute Lymphocytes Absolute Monocytes Absolute Eosinophils Absolute Basophils Carbonic Acid HCO3/H2CO3 Ratio ABG pH ABG pCO2 ABG pO2 ABG HCO3 ABG O2 Saturation ABG Base Excess FiO2 Sodium 143.1 141.7 Potassium 2.6 L* 3.3 L Chloride 106 107 Carbon Dioxide 25 D 28 Anion Gap 12 7 BUN 4 L 4 L Creatinine 0.34 L 0.39 L Est GFR ( Amer) > 60 > 60 Est GFR (Non-Af Amer) > 60 > 60 Glucose 156 H 133 H Calcium 7.7 L 7.4 L Magnesium 1.1 L* Impressions: Chest X-Ray 06/24/18 19:25 IMPRESSION: Center venous access calf further via right subclavian approach into the IJ and the tip is not seen. Assessment & Plan - Diagnosis (1) DKA (diabetic ketoacidoses) Qualifiers: Diabetes mellitus type: type 1 Diabetes mellitus complication detail: without coma Qualified Code(s): E10.10 - Type 1 diabetes mellitus with ketoacidosis without coma Is this a current diagnosis for this admission?: Yes Plan: 06/25/2018: Patient will be started back on a bicarb drip over the next 8 hours. Recheck BMP and ABG's at 4 PM. Q4hr accu-checks and sliding scale humalog insulin to maintain glycemic control. Start clear liquid diet and advance to a carb 4 diet as tolerated. 06/26/2018: The patient responded well to the bicarb drip administered yesterday. Her pH is back to normal and her bicarbonate/CO2 is also normalized. Blood sugar has been running under 200 and attempts at starting a diet have been mostly a failure as she complains of generalized malaise and nausea with anorexia. Intervention utilizing Reglan, Pepcid and Carafate much as if treating gastroparesis will be instituted in hopes of improving her nausea and anorexia. I have offered her Tylenol suppositories or oral Tylenol for her generalized malaise and she does not feel she can keep the oral Tylenol down and refuses to have a rectal suppository under any circumstances. At the present time patient is no longer ketoacidotic and this problem has been resolved. (2) Anemia Qualifiers: Anemia type: unspecified type Qualified Code(s): D64.9 - Anemia, unspecified Is this a current diagnosis for this admission?: Yes Plan: Transfuse 1 unit PRBC's EVELIA. Follow-up cbc post-transfusion and daily in AM. 06/26/2018: Patient's hemoglobin is 8.3 posttransfusion. Her hemodynamic state is stable and we will monitor in an ongoing fashion utilizing a daily CBC. (3) Hypotension Is this a current diagnosis for this admission?: Yes Plan: Most likely all VS abnormalities (hypotension & tachycardia) are multifactorial : due to hypovolemia, ketoacidosis and anemia. Volume has been corrected with good urine outputs noted. Correction of the acidosis and the anemia factors is underway. Consider vasopressors if needed. Reassess efficacy of this plan with 4 PM lab work and monitoring VS and mental status. 06/26/2018: Patient's hypotension resolved well with resolution and control of her metabolic acidosis with a bicarbonate drip infusion and repletion of her red cell volume with a 1 unit transfusion. Patient continues to have a mild tachycardia though this may have multiple etiologies including a certain degree of psychiatric causation. At this point the patient's hypertension has resolved. (4) Hypovolemia Is this a current diagnosis for this admission?: Yes Plan: Most likely all VS abnormalities (hypotension & tachycardia) are multifactorial : due to hypovolemia, ketoacidosis and anemia. Volume has been corrected with good urine outputs noted. Correction of the acidosis and the anemia factors is underway. Consider vasopressors if needed. Reassess efficacy of this plan with 4 PM lab work and monitoring VS and mental status. 06/26/2018: Patient is maintained a good urine output and her blood pressure has returned to normal her tachycardia has used after resolution of her metabolic acidosis and red cell volume deficiency. At the present time the patient does not appear to be hypovolemic though her tachycardia persists but is strongly considered to be due to psychiatric causes. (5) Tachycardia Is this a current diagnosis for this admission?: Yes Plan: Most likely all VS abnormalities (hypotension & tachycardia) are multifactorial : due to hypovolemia, ketoacidosis and anemia. Volume has been corrected with good urine outputs noted. Correction of the acidosis and the anemia factors is underway. Consider vasopressors if needed. Reassess efficacy of this plan with 4 PM lab work and monitoring VS and mental status. - Time Time Spent with patient: 15-24 minutes Medications reviewed and adjusted accordingly: Yes
[2018-06-26] MEDS: FAMOTIDINE INJ/PF 20 MG/2 ML SDV IV SCH ×3 (11:27→21:45)
[2018-06-26] MEDS: METOCLOPRAMIDE HCL INJ/PF 10 MG/2 ML SDV IV SCH ×3 (11:30→21:19)
[2018-06-26 16:44] LABS: POTASSIUM 3.1 mmol/L (3.6-5.0)
[2018-06-26] MEDS ORDERED: DEXTROSE 40% GEL 15 GM TUBE X 2 PO PRN (19:04)
[2018-06-26] MEDS ORDERED: GLUCAGON,HUMAN RECOMB 1 MG INJ IM PRN (19:04)
[2018-06-26] MEDS ORDERED: DEXTROSE 50%-WATER SYRINGE 12.5 GM/25 ML DOSE IV PRN (19:04)
[2018-06-26] MEDS ORDERED: DEXTROSE 40% GEL 15 GM TUBE PO PRN (19:04)
[2018-06-26] MEDS ORDERED: DEXTROSE 50%-WATER SYRINGE 25 GM/50 ML DOSE IV PRN (19:04)
[2018-06-26] MEDS: POTASSI CL 20 MEQ/1/2NS 1L 1000 ML IV PRN (19:26)
[2018-06-27] MEDS: POTASSIUM CHLORIDE 20 MEQ/50 ML RTU IV SCH (01:56)
[2018-06-27] MEDS ORDERED: IBUPROFEN 800 MG TABLET ONE (03:36)
[2018-06-27] MEDS ORDERED: IBUPROFEN 400 MG TABLET PO ONE (03:45)
[2018-06-27] MEDS ORDERED: PHARMACY COMMUNICATION ORDER MC PRN (04:03)
[2018-06-27] MEDS ORDERED: VANCOMYCIN HCL INJ 1000 MG VIAL IV PRN (04:04)
[2018-06-27] MEDS: POTASSI CL 20 MEQ/1/2NS 1L 1000 ML IV PRN ×2 (04:10→14:38)
[2018-06-27 04:49] LABS: APPEARANCE,URINE CLEAR; BILIRUBIN,URINE NEGATIVE (NEGATIVE); GLUCOSE, URINE NEGATIVE (NEGATIVE); KETONES,URINE 20 mg/dL (NEGATIVE); LEUKOCYTE ESTERASE,URINE NEGATIVE (NEGATIVE); NITRITE,URINE NEGATIVE (NEGATIVE); PROTEIN,URINE NEGATIVE (NEGATIVE); URINE SPECIFIC GRAVITY 1.011; UROBILINOGEN,URINE NEGATIVE mg/dL (<2.0)
[2018-06-27 04:51] LABS: COLOR,URINE LIGHT YELLOW
[2018-06-27] MEDS ORDERED: VANCOMYCIN HCL 1,250 MG in DEXTROSE 5%-WATER 250 ML IV ONE (05:00)
[2018-06-27 05:42] LABS: HEMATOCRIT 26.9 % (36.0-47.0); HEMOGLOBIN 8.5 g/dL (12.0-15.5); MEAN CORPUSCULAR HEMOGLOBIN 20.5 pg (27.0-33.4); MEAN CORPUSCULAR HGB CONC 31.5 g/dL (32.0-36.0); MEAN CORPUSCULAR VOLUME 65 fl (80-97); PLATELET COUNT 281 10^3/uL (150-450); RED BLOOD COUNT 4.14 10^6/uL (3.72-5.28); RED CELL DISTRIBUTION WIDTH 20.2 % (11.5-14.0)
[2018-06-27 05:57] LABS: ANION GAP 12 (5-19); CALCIUM 7.9 mg/dL (8.4-10.2); CARBON DIOXIDE 21 mmol/L (22-30); CHLORIDE 106 mmol/L (98-107); GLUCOSE 148 mg/dL (75-110); POTASSIUM 3.9 mmol/L (3.6-5.0); SODIUM 138.5 mmol/L (137-145)
[2018-06-27 06:04] LABS: BLOOD UREA NITROGEN < 2 mg/dL (7-20)
[2018-06-27] MEDS: CLINDAMYCIN 600 MG/D5W RTU 600 MG/50 ML RTUPB IV SCH ×3 (06:43→22:58)
[2018-06-27] MEDS: SUCRALFATE SUSP 1 GM/10 ML UDCUP PO SCH ×5 (07:50→23:02)
[2018-06-27] MEDS: FAMOTIDINE INJ/PF 20 MG/2 ML SDV IV SCH ×4 (07:50→22:57)
[2018-06-27] MEDS: METOCLOPRAMIDE HCL INJ/PF 10 MG/2 ML SDV IV SCH ×4 (07:50→22:57)
[2018-06-27] MEDS: ACETAMINOPHEN 325 MG TABLET PO PRN ×2 (07:50→16:00)
[2018-06-27] MEDS ORDERED: BUTALB/ACETAMINOPHEN/CAFFEINE 1 TAB EACH PO PRN (08:27)
[2018-06-27] MEDS ORDERED: VANCOMYCIN HCL 0 MG in DEXTROSE 5%-WATER 250 ML IV NR (08:30)
[2018-06-27] MEDS: ENOXAPARIN SODIUM INJ 40 MG/0.4 ML DISP.SYRIN SUBCUT SCH (11:15)
[2018-06-27] MEDS: INSULIN DETEMIR 100 UNIT/ML 3 ML PEN SUBCUT SCH ×2 (11:16→23:03)
[2018-06-27] MEDS: VANCOMYCIN HCL 1,250 MG in DEXTROSE 5%-WATER 250 ML IV SCH ×2 (13:01→23:51)
[2018-06-27] MEDS: INSULIN LISPRO 100 UNIT/ML 3 ML VIAL SUBCUT PRN ×2 (14:43→23:15)
[2018-06-27] MEDS: IBUPROFEN 400 MG TABLET PO PRN (15:24)
--- NOTE | 2018-06-27 15:46 | EKG REPORT ---
SEVERITY:- BORDERLINE ECG - SINUS TACHYCARDIA BORDERLINE PROLONGED QT INTERVAL : Confirmed by: Caridad Cox MD 27-Jun-2018 15:45:38
--- NOTE | 2018-06-27 17:22 | PDOC PROGRESS REPORT ---
Subjective Progress Note for:: 06/27/18 Subjective:: Assumed care today. Ms. Nguyen is a 23 yr old female with a PMH of type 1 DM and history of noncompliance who initially presented with nausea and vomiting. she was noted to be in DKA and was given IV fluids and started on insulin drip. Her DKA resolved, she was successfully transitioned and her diet was advanced. Overnight, patient had febrile episodes in the 102 F. Per night staff, she was noted to have a retained tampon which was subsequently removed. She was started on IV clindamycin but she refused antibiotics apparently. Upon encounter and rediscussion this morning, she agreed to be given IV antibiotics. Reason For Visit: DKA Physical Exam Vital Signs: Temp Pulse Resp BP Pulse Ox 100.9 F H 159 H 21 H 107/69 99 06/27/18 17:00 06/27/18 08:25 06/27/18 17:00 06/27/18 16:29 06/27/18 17:00 Intake & Output 06/26/18 06/27/18 06/28/18 06:59 06:59 06:59 Intake Total 5153 3629 1000 Output Total 4735 2255 Balance 418 1374 1000 Weight 169 lb 12.095 oz 173 lb 4.533 oz General appearance: PRESENT: no acute distress, well-developed, well-nourished Head exam: PRESENT: atraumatic, normocephalic Eye exam: PRESENT: conjunctiva pink, EOMI, PERRLA. ABSENT: scleral icterus Ear exam: PRESENT: normal external ear exam Mouth exam: PRESENT: moist, tongue midline Neck exam: ABSENT: carotid bruit, JVD, lymphadenopathy, thyromegaly Respiratory exam: PRESENT: clear to auscultation lam. ABSENT: rales, rhonchi, wheezes Cardiovascular exam: PRESENT: RRR. ABSENT: diastolic murmur, rubs, systolic murmur Pulses: PRESENT: normal dorsalis pedis pul GI/Abdominal exam: PRESENT: normal bowel sounds, soft. ABSENT: distended, guarding, mass, organolmegaly, rebound, tenderness Rectal exam: PRESENT: deferred Neurological exam: PRESENT: alert, awake, oriented to person, oriented to place , oriented to time, oriented to situation, CN II-XII grossly intact. ABSENT: motor sensory deficit Results Laboratory Results: 06/27/18 05:30 06/27/18 05:30 06/27/18 06/27/18 06/27/18 04:00 05:30 05:30 WBC 8.0 RBC 4.14 Hgb 8.5 L Hct 26.9 L MCV 65 L MCH 20.5 L MCHC 31.5 L RDW 20.2 H Plt Count 281 Sodium 138.5 Potassium 3.9 Chloride 106 Carbon Dioxide 21 L Anion Gap 12 BUN < 2 L Creatinine 0.40 L Est GFR ( Amer) > 60 Est GFR (Non-Af Amer) > 60 Glucose 148 H Calcium 7.9 L Magnesium 1.6 Urine Color LIGHT YELLOW Urine Appearance CLEAR Urine pH 7.0 Ur Specific [place] 1.011 Urine Protein NEGATIVE Urine Glucose (UA) NEGATIVE Urine Ketones 20 H Urine Blood SMALL H Urine Nitrite NEGATIVE Ur Leukocyte Esterase NEGATIVE Urine WBC (Auto) 5 Urine RBC (Auto) 3 Impressions: Chest X-Ray 06/24/18 19:25 IMPRESSION: Center venous access calf further via right subclavian approach into the IJ and the tip is not seen. Assessment & Plan - Diagnosis (1) DKA (diabetic ketoacidoses) Qualifiers: Diabetes mellitus type: type 1 Diabetes mellitus complication detail: without coma Qualified Code(s): E10.10 - Type 1 diabetes mellitus with ketoacidosis without coma Is this a current diagnosis for this admission?: Yes Plan: Resolved. On Levemir 26 u q12 and sliding scale coverage. Her diet has been advanced but she says she has poor appetite. (2) Sepsis Is this a current diagnosis for this admission?: Yes Plan: Patient did present with leukocytosis. She has tachycardia, fever and tachypnea. She was noted to have a retained tampon last night. She was started on clindamycin but she refused antibiotics earlier. She is now amenable to antibiotic administration after discussing its importance. Will add vancomycin. Will recheck lactic acid as she did have lactic acidosis on admission. - Time Time Spent with patient: 25-34 minutes
[2018-06-27] MEDS: RINGERS SOLUTION,LACTATED 1,000 ML IV PRN ×2 (19:00→21:18)
[2018-06-27] MEDS ORDERED: RINGERS SOLUTION,LACTATED 1,000 ML IV SCH (20:30)
[2018-06-28] MEDS: ACETAMINOPHEN 325 MG TABLET PO PRN (01:07)
[2018-06-28] MEDS: POTASSI CL 20 MEQ/1/2NS 1L 1000 ML IV PRN ×2 (02:16→11:27)
[2018-06-28] MEDS: CLINDAMYCIN 600 MG/D5W RTU 600 MG/50 ML RTUPB IV SCH ×3 (05:01→21:23)
[2018-06-28 05:26] LABS: HEMATOCRIT 27.9 % (36.0-47.0); HEMOGLOBIN 8.9 g/dL (12.0-15.5); MEAN CORPUSCULAR HEMOGLOBIN 20.4 pg (27.0-33.4); MEAN CORPUSCULAR HGB CONC 31.8 g/dL (32.0-36.0); MEAN CORPUSCULAR VOLUME 64 fl (80-97); PLATELET COUNT 266 10^3/uL (150-450); RED BLOOD COUNT 4.35 10^6/uL (3.72-5.28); RED CELL DISTRIBUTION WIDTH 21.1 % (11.5-14.0); WHITE BLOOD COUNT 8.9 10^3/uL (4.0-10.5)
[2018-06-28 05:37] LABS: ANION GAP 6 (5-19); BLOOD UREA NITROGEN 5 mg/dL (7-20); CALCIUM 8.1 mg/dL (8.4-10.2); CARBON DIOXIDE 26 mmol/L (22-30); CHLORIDE 105 mmol/L (98-107); GLUCOSE 129 mg/dL (75-110); POTASSIUM 3.1 mmol/L (3.6-5.0); SODIUM 137.1 mmol/L (137-145)
[2018-06-28] MEDS: VANCOMYCIN HCL 1,250 MG in DEXTROSE 5%-WATER 250 ML IV SCH ×3 (06:19→23:06)
[2018-06-28] MEDS: FAMOTIDINE INJ/PF 20 MG/2 ML SDV IV SCH ×4 (08:19→21:23)
[2018-06-28] MEDS: SUCRALFATE SUSP 1 GM/10 ML UDCUP PO SCH ×4 (08:19→21:23)
[2018-06-28] MEDS: METOCLOPRAMIDE HCL INJ/PF 10 MG/2 ML SDV IV SCH ×3 (08:19→17:42)
[2018-06-28] MEDS: IBUPROFEN 400 MG TABLET PO PRN (08:25)
[2018-06-28] MEDS: INSULIN DETEMIR 100 UNIT/ML 3 ML PEN SUBCUT SCH ×2 (09:30→21:24)
[2018-06-28] MEDS: ENOXAPARIN SODIUM INJ 40 MG/0.4 ML DISP.SYRIN SUBCUT SCH (09:35)
[2018-06-28] MEDS ORDERED: POTASSIUM CHLORIDE 10 MEQ CAPSULE.ER PO ONE (11:29)
[2018-06-28] MEDS ORDERED: NORMAL SALINE 1000 ML 1,000 ML IV ONE (12:21)
[2018-06-28 14:35] LABS: VANCOMYCIN,TROUGH 15.7 ug/mL (5.0-20.0)
--- NOTE | 2018-06-28 16:18 | PDOC PROGRESS REPORT ---
Subjective Progress Note for:: 06/28/18 Subjective:: Ms. Nguyen is a 23 yr old female with a PMH of type 1 DM and history of noncompliance who initially presented with nausea and vomiting. she was noted to be in DKA and was given IV fluids and started on insulin drip. Her DKA resolved, she was successfully transitioned and her diet was advanced. She was found to have sepsis and later found to have a retained tampon which was subsequently removed. No acute event overnight. No recurrence of fever so far. Patient says she still feels weak and has some body malaise but feels better today. She is refusing VTE prophylaxis including medical and mechanical means. Discussed the importance of this and she says she sometimes get bruising from the shots and don't want to get the heparin. She also refused Cds as she says she rather walk around. She is ambulating well. She has some nausea but not vomiting. Reason For Visit: DKA Physical Exam Vital Signs: Temp Pulse Resp BP Pulse Ox 98.9 F 125 H 20 113/72 97 06/28/18 11:15 06/28/18 14:18 06/28/18 11:15 06/28/18 11:15 06/28/18 11:15 Intake & Output 06/27/18 06/28/18 06/29/18 06:59 06:59 06:59 Intake Total 3629 4950 1487 Output Total 2255 2520 1100 Balance 1374 2430 387 Weight 173 lb 4.533 oz 174 lb 2.643 oz General appearance: PRESENT: no acute distress, well-developed, well-nourished Head exam: PRESENT: atraumatic, normocephalic Eye exam: PRESENT: conjunctiva pink, EOMI, PERRLA. ABSENT: scleral icterus Ear exam: PRESENT: normal external ear exam Mouth exam: PRESENT: moist, tongue midline Neck exam: ABSENT: carotid bruit, JVD, lymphadenopathy, thyromegaly Respiratory exam: PRESENT: clear to auscultation lam. ABSENT: rales, rhonchi, wheezes Cardiovascular exam: PRESENT: RRR. ABSENT: diastolic murmur, rubs, systolic murmur Pulses: PRESENT: normal dorsalis pedis pul GI/Abdominal exam: PRESENT: normal bowel sounds, soft. ABSENT: distended, guarding, mass, organolmegaly, rebound, tenderness Rectal exam: PRESENT: deferred Neurological exam: PRESENT: alert, awake, oriented to person, oriented to place , oriented to time, oriented to situation, CN II-XII grossly intact. ABSENT: motor sensory deficit Results Laboratory Results: 06/28/18 05:15 06/28/18 05:15 06/27/18 06/28/18 06/28/18 17:45 02:53 05:15 WBC 8.9 RBC 4.35 Hgb 8.9 L Hct 27.9 L MCV 64 L MCH 20.4 L MCHC 31.8 L RDW 21.1 H Plt Count 266 Sodium Potassium Chloride Carbon Dioxide Anion Gap BUN Creatinine Est GFR ( Amer) Est GFR (Non-Af Amer) Glucose Lactic Acid 7.9 H 4.0 H Calcium Magnesium 06/28/18 06/28/18 05:15 13:45 WBC RBC Hgb Hct MCV MCH MCHC RDW Plt Count Sodium 137.1 Potassium 3.1 L Chloride 105 Carbon Dioxide 26 Anion Gap 6 BUN 5 L Creatinine 0.48 L Est GFR ( Amer) > 60 Est GFR (Non-Af Amer) > 60 Glucose 129 H Lactic Acid 1.8 Calcium 8.1 L Magnesium 1.6 Impressions: Chest X-Ray 06/24/18 19:25 IMPRESSION: Center venous access calf further via right subclavian approach into the IJ and the tip is not seen. Assessment & Plan - Diagnosis (1) DKA (diabetic ketoacidoses) Qualifiers: Diabetes mellitus type: type 1 Diabetes mellitus complication detail: without coma Qualified Code(s): E10.10 - Type 1 diabetes mellitus with ketoacidosis without coma Is this a current diagnosis for this admission?: Yes Plan: Resolved. On Levemir 26 u q12 and sliding scale coverage. Her diet has been advanced. (2) Sepsis Is this a current diagnosis for this admission?: Yes Plan: Likely from toxic shock syndrome from retained tampon. Patient did present with leukocytosis. She had tachycardia, fever and tachypnea. She was noted to have a retained tampon on 06/26/18. She was started on clindamycin but she refused antibiotics intially and missed a few doses. She eventually agreed to getting antibiotics and is getting clindamycin and vancomycin. She remains tachycardic but fever has resolved. Lctic acid is also trending down. First set of blood cultures i growing gram positive cocci 2/2 bottles. Repeat blood cultures drawn. - Time Time Spent with patient: 25-34 minutes
[2018-06-28] MEDS ORDERED: METOCLOPRAMIDE HCL INJ/PF 10 MG/2 ML SDV IV PRN (16:28)
[2018-06-28] MEDS: POTASSIUM CHLORIDE 20 MEQ/50 ML RTU IV SCH ×2 (16:33→18:00)
[2018-06-28] MEDS: MORPHINE SULFATE 10 MG/ML INJ IV PRN (19:58)
[2018-06-28] MEDS: GABAPENTIN 300 MG CAPSULE PO SCH (21:22)
[2018-06-28] MEDS: TRAZODONE HCL 50 MG TABLET PO SCH (21:23)
[2018-06-28] MEDS ORDERED: TRAZODONE HCL 50 MG TABLET PO SCH ×2 (22:00)
[2018-06-28 22:22] LABS: ANION GAP 10 (5-19); BLOOD UREA NITROGEN 5 mg/dL (7-20); CALCIUM 8.1 mg/dL (8.4-10.2); CARBON DIOXIDE 22 mmol/L (22-30); CHLORIDE 106 mmol/L (98-107); GLUCOSE 199 mg/dL (75-110)
[2018-06-28 22:30] LABS: POTASSIUM 4.3 mmol/L (3.6-5.0)
[2018-06-29] MEDS: POTASSI CL 20 MEQ/1/2NS 1L 1000 ML IV PRN ×3 (01:00→18:44)
[2018-06-29] MEDS: CLINDAMYCIN 600 MG/D5W RTU 600 MG/50 ML RTUPB IV SCH ×3 (05:24→21:31)
[2018-06-29] MEDS: VANCOMYCIN HCL 1,250 MG in DEXTROSE 5%-WATER 250 ML IV SCH ×3 (06:30→22:15)
[2018-06-29] MEDS: FAMOTIDINE INJ/PF 20 MG/2 ML SDV IV SCH ×4 (07:45→21:33)
[2018-06-29] MEDS: GABAPENTIN 300 MG CAPSULE PO SCH ×3 (07:47→21:34)
[2018-06-29] MEDS: SUCRALFATE SUSP 1 GM/10 ML UDCUP PO SCH ×4 (07:47→21:30)
[2018-06-29] MEDS: INSULIN LISPRO 100 UNIT/ML 3 ML VIAL SUBCUT PRN ×4 (08:52→21:32)
[2018-06-29] MEDS: ENOXAPARIN SODIUM INJ 40 MG/0.4 ML DISP.SYRIN SUBCUT SCH (10:27)
[2018-06-29] MEDS: FLUOXETINE HCL 20 MG CAPSULE PO SCH (10:59)
[2018-06-29] MEDS: INSULIN DETEMIR 100 UNIT/ML 3 ML PEN SUBCUT SCH ×2 (12:03→21:31)
[2018-06-29] MEDS: ACETAMINOPHEN 325 MG TABLET PO PRN (12:10)
--- NOTE | 2018-06-29 12:57 | PDOC PROGRESS REPORT ---
Subjective Progress Note for:: 06/29/18 Subjective:: Ms. Nguyen is a 23 yr old female with a PMH of type 1 DM and history of noncompliance who initially presented with nausea and vomiting. she was noted to be in DKA and was given IV fluids and started on insulin drip. Her DKA resolved, she was successfully transitioned and her diet was advanced. She was found to have sepsis and later found to have a retained tampon which was subsequently removed. No acute event overnight. No recurrence of fever so far. Patient says she feels slightly better day by the day. She continues to refuse VTE prophylaxis including medical and mechanical means. she has started to tolerate some liquids. Her first set of blood cultures are growing MRSA and repeat set is still growing gram positive cocci. She denies chest pain or palpitations. Heart rate has improved down to high 90-100s. 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 Reason For Visit: DKA Physical Exam Vital Signs: Temp Pulse Resp BP Pulse Ox 98.7 F 130 H 16 105/73 95 06/29/18 11:06 06/29/18 11:06 06/29/18 11:06 06/29/18 11:06 06/29/18 11:06 Intake & Output 06/28/18 06/29/18 06/30/18 06:59 06:59 06:59 Intake Total 4950 4885 1166 Output Total 2520 1700 Balance 2430 3185 1166 Weight 174 lb 2.643 oz 175 lb 14.862 oz General appearance: PRESENT: no acute distress, well-developed, well-nourished Head exam: PRESENT: atraumatic, normocephalic Eye exam: PRESENT: conjunctiva pink, EOMI, PERRLA. ABSENT: scleral icterus Ear exam: PRESENT: normal external ear exam Mouth exam: PRESENT: moist, tongue midline Neck exam: ABSENT: carotid bruit, JVD, lymphadenopathy, thyromegaly Respiratory exam: PRESENT: clear to auscultation lam. ABSENT: rales, rhonchi, wheezes Cardiovascular exam: PRESENT: RRR, tachycardia. ABSENT: diastolic murmur, rubs , systolic murmur Pulses: PRESENT: normal dorsalis pedis pul GI/Abdominal exam: PRESENT: normal bowel sounds, soft. ABSENT: distended, guarding, mass, organolmegaly, rebound, tenderness Rectal exam: PRESENT: deferred Neurological exam: PRESENT: alert, awake, oriented to person, oriented to place , oriented to time, oriented to situation, CN II-XII grossly intact. ABSENT: motor sensory deficit Results Laboratory Results: 06/28/18 05:15 06/28/18 21:40 06/28/18 06/28/18 13:45 21:40 Sodium 138.0 Potassium 4.3 D Chloride 106 Carbon Dioxide 22 Anion Gap 10 BUN 5 L Creatinine 0.47 L Est GFR ( Amer) > 60 Est GFR (Non-Af Amer) > 60 Glucose 199 H Lactic Acid 1.8 Calcium 8.1 L 06/27/18 04:00 Oliveira Catheter Urine Culture - Final Mrsa (Meth Resis Staph Aureus) 06/27/18 04:03 Blood Blood Culture - Final Mrsa (Meth Resis Staph Aureus) 06/27/18 03:55 Blood Blood Culture - Final Mrsa (Meth Resis Staph Aureus) Impressions: Chest X-Ray 06/24/18 19:25 IMPRESSION: Center venous access calf further via right subclavian approach into the IJ and the tip is not seen. Assessment & Plan - Diagnosis (1) DKA (diabetic ketoacidoses) Qualifiers: Diabetes mellitus type: type 1 Diabetes mellitus complication detail: without coma Qualified Code(s): E10.10 - Type 1 diabetes mellitus with ketoacidosis without coma Is this a current diagnosis for this admission?: Yes Plan: Resolved. On Levemir 26 u q12 and sliding scale coverage. Her diet has been advanced. (2) Sepsis Is this a current diagnosis for this admission?: Yes Plan: Likely from toxic shock syndrome from retained tampon. Patient did present with leukocytosis. She had tachycardia, fever and tachypnea. She was noted to have a retained tampon on 06/26/18. She was started on clindamycin but she refused antibiotics intially and missed a few doses. She eventually agreed to getting antibiotics and was restarted on clindamycin and vancomycin. She remains tachycardic but fever has resolved. Lactic acid has also trended down. First set of blood cultures grew MRSA 2/2 bottles. Repeat blood cultures are still growing gram positive cocci. Will remove femoral central line as ti has also been leaking. This is the only line she has and staff is unable to obtain PIV access. Will order for a PICC line. Will order an echo due persistent bacteremia and history of MRSA infective endocarditis. - Time Time Spent with patient: 25-34 minutes
--- NOTE | 2018-06-29 14:55 | RADIOLOGY REPORT (SQ) ---
EXAM DESCRIPTION: FLUORO/CV PLACEMENT; PICC INSERTION COMPLETED DATE/TIME: 06/29/2018 2:46 pm; 06/29/2018 2:45 pm REASON FOR STUDY: NEED ACCESS; need access COMPARISON: Chest x-ray dated 06/24/2018. FLUOROSCOPY TIME: 1 minutes 17 seconds 3 images saved to PACS. TECHNIQUE: Fluoroscopic and ultrasound guided PICC placement. LIMITATIONS: None. PROCEDURE: After written consent and assessment were obtained, the patient was brought into the fluo roscopy room and placed supine on the table. Ultrasound evaluation of potential access sites were per formed. After successfully identifying a patent right basilic vein, the right arm was prepped and montrell ped in a sterile fashion along with the ultrasound probe. The entry site was anesthetized with 1% lid ocaine. A 21 gauge 7 cm needle was advanced through the skin and into the basilic vein under live ult rasound guidance. An ultrasound image was saved to PACS confirming access site. A .018 guide wire w as then inserted through the needle and into the venous system. The needle was then removed and an 11 blade scalpel was used to make a 1cm skin incision. A 5 fr peel-away sheath was advanced over the w torrey and into the venous system. A measurement was then made using the existing wire and live fluorosc opic guidance. The wire was then removed and trimmed. The PICC was advanced through the peel-away she ath and into the venous system. The peel-away sheath was removed and the catheter was adhered to the patients arm with a stat lock. The catheter was then aspirated and flushed and a sterile bandage was placed over the access site. A fluoroscopic spot image was saved to PACS confirming the catheter tip within the superior vena cava. IMPRESSION: SUCCESSFUL PLACEMENT OF A 5 FR DUAL LUMEN 42 CM PICC IN THE RIGHT BASILIC VEIN. COMMENT: Patient medication list reviewed: Yes- Quality ID# [id number]:Eligible professional attests to doc umenting in the medical record they obtained, updated, or reviewed the patient's current medications. . Quality ID 145: Final reports for procedures using fluoroscopy that document radiation exposure bela zora, or exposure time and number of fluorographic images (if radiation exposure indices are not avail able) Quality ID #76: The patient was prepped and draped using maximum sterile barrier technique including cap, mask, sterile gown, sterile gloves, a large sterile sheet, hand hygiene, and 2% Chlorhexidine fo r cutaneous antisepsis. When ultrasound is used, sterile ultrasound techniques are followed requiring sterile gel and sterile probes. TECHNICAL DOCUMENTATION: JOB ID: [id number] [employer]- All Rights Reserved rev-12/23 Reading location - IP/workstation name: [email or web address]
--- NOTE | 2018-06-29 14:59 | RADIOLOGY REPORT (SQ) ---
EXAM DESCRIPTION: U/S GUIDE FOR VASCULAR ACCESS COMPLETE DATE/TIME: 06/29/2018 2:50 pm REASON FOR STUDY: PICC INSERTION FOR IV ACCESS FINDINGS: Please see combined report for performance of procedure and radiologic supervision and int erpretation. IMPRESSION: Please see combined report for performance of procedure and radiologic supervision and i nterpretation. Reading location - IP/workstation name: [email or web address]
[2018-06-29] MEDS ORDERED: NORMAL SALINE 10 ML SDV (AFTER EACH USE) IV PRN (16:28)
[2018-06-29] MEDS: NORMAL SALINE 10 ML SDV (SCHEDULED) IV SCH (21:33)
[2018-06-30] MEDS: POTASSI CL 20 MEQ/1/2NS 1L 1000 ML IV PRN ×3 (02:48→19:55)
[2018-06-30] MEDS: CLINDAMYCIN 600 MG/D5W RTU 600 MG/50 ML RTUPB IV SCH ×3 (05:05→21:36)
[2018-06-30] MEDS: VANCOMYCIN HCL 1,250 MG in DEXTROSE 5%-WATER 250 ML IV SCH ×3 (05:37→22:37)
[2018-06-30] MEDS: FAMOTIDINE INJ/PF 20 MG/2 ML SDV IV SCH ×4 (07:54→21:34)
[2018-06-30] MEDS: GABAPENTIN 300 MG CAPSULE PO SCH ×3 (07:55→21:37)
[2018-06-30] MEDS: SUCRALFATE SUSP 1 GM/10 ML UDCUP PO SCH ×4 (07:55→21:33)
[2018-06-30] MEDS: FLUOXETINE HCL 20 MG CAPSULE PO SCH (09:23)
[2018-06-30] MEDS: ENOXAPARIN SODIUM INJ 40 MG/0.4 ML DISP.SYRIN SUBCUT SCH (09:23)
[2018-06-30] MEDS: NORMAL SALINE 10 ML SDV (SCHEDULED) IV SCH ×2 (09:24→21:36)
[2018-06-30] MEDS: INSULIN DETEMIR 100 UNIT/ML 3 ML PEN SUBCUT SCH ×2 (09:24→21:35)
[2018-06-30] MEDS ORDERED: LORAZEPAM INJ 2 MG/1 ML VIAL IV ONE (10:17)
[2018-06-30] MEDS ORDERED: LORAZEPAM INJ 2 MG/1 ML VIAL ONE (10:24)
[2018-06-30] MEDS ORDERED: ALPRAZOLAM 0.5 MG TABLET PO ONE (13:00)
[2018-06-30] MEDS: INSULIN LISPRO 100 UNIT/ML 3 ML VIAL SUBCUT PRN ×2 (13:05→21:34)
--- NOTE | 2018-06-30 13:46 | PDOC PROGRESS REPORT ---
Subjective Progress Note for:: 06/30/18 Subjective:: Ms. Nguyen is a 23 yr old female with a PMH of type 1 DM, bipolar disorder and history of noncompliance who initially presented with nausea and vomiting. she was noted to be in DKA and was given IV fluids and started on insulin drip. Her DKA resolved, she was successfully transitioned and her diet was advanced. She was found to have sepsis and later found to have a retained tampon in the ICU which was subsequently removed. No acute event overnight but she complains she was not able to sleep last night and is crying about it. No recurrence of fever so far. She says she feels much better today but is bothered that she was not able to sleep. She takes trazodone at night but this is being held due to her prolonged QTc. She continues to refuse VTE prophylaxis including medical and mechanical means. She is tolerating diet well. Denies nausea, vomiting, headache, dizziness or neck stiffness. Her first set of blood cultures grew MRSA and repeat sets (2nd and 3rd) is still growing gram positive cocci despite being on vancomycin at therapeutic levels. She denies chest pain or palpitations. Heart rate has improved down to high 90-100s. Central line was removed due to leakage on 06/29 and a PICC line had to be placed on 06/29 due to poor PIV access. 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 Echo has been ordered yesterday and is still pending. Reason For Visit: DKA Physical Exam Vital Signs: Temp Pulse Resp BP Pulse Ox 98.0 F 99 18 132/90 H 100 06/30/18 11:39 06/30/18 11:39 06/30/18 11:39 06/30/18 11:39 06/30/18 11:39 Intake & Output 06/29/18 06/30/18 07/01/18 06:59 06:59 06:59 Intake Total 4935 4408 1723 Output Total 1700 400 Balance 3235 4008 1723 Weight 175 lb 14.862 oz 182 lb 12.211 oz General appearance: PRESENT: well-developed, other - she is tearful saying she has not slept last night Head exam: PRESENT: atraumatic, normocephalic Eye exam: PRESENT: conjunctiva pink, EOMI, PERRLA. ABSENT: scleral icterus Ear exam: PRESENT: normal external ear exam Mouth exam: PRESENT: moist, tongue midline Neck exam: ABSENT: carotid bruit, JVD, lymphadenopathy, thyromegaly Respiratory exam: PRESENT: clear to auscultation lam. ABSENT: rales, rhonchi, wheezes Cardiovascular exam: PRESENT: RRR, tachycardia. ABSENT: diastolic murmur, rubs , systolic murmur Pulses: PRESENT: normal dorsalis pedis pul GI/Abdominal exam: PRESENT: normal bowel sounds, soft. ABSENT: distended, guarding, mass, organolmegaly, rebound, tenderness Rectal exam: PRESENT: deferred Neurological exam: PRESENT: alert, awake, oriented to person, oriented to place , oriented to time, oriented to situation, CN II-XII grossly intact. ABSENT: motor sensory deficit Results Laboratory Results: 06/28/18 05:15 06/28/18 21:40 06/27/18 04:00 Oliveira Catheter Urine Culture - Final Mrsa (Meth Resis Staph Aureus) 06/27/18 04:03 Blood Blood Culture - Final Mrsa (Meth Resis Staph Aureus) Impressions: Chest X-Ray 06/24/18 19:25 IMPRESSION: Center venous access calf further via right subclavian approach into the IJ and the tip is not seen. Guidance Fluoroscopy 06/29/18 00:00 IMPRESSION: SUCCESSFUL PLACEMENT OF A 5 FR DUAL LUMEN 42 CM PICC IN THE RIGHT BASILIC VEIN. Interventional Vascular Procedure 06/29/18 00:00 IMPRESSION: Please see combined report for performance of procedure and radiologic supervision and interpretation. PICC Line Insertion 06/29/18 00:00 IMPRESSION: SUCCESSFUL PLACEMENT OF A 5 FR DUAL LUMEN 42 CM PICC IN THE RIGHT BASILIC VEIN. Assessment & Plan - Diagnosis (1) DKA (diabetic ketoacidoses) Qualifiers: Diabetes mellitus type: type 1 Diabetes mellitus complication detail: without coma Qualified Code(s): E10.10 - Type 1 diabetes mellitus with ketoacidosis without coma Is this a current diagnosis for this admission?: Yes Plan: Resolved. On Levemir 26 u q12 and sliding scale coverage. Her diet has been advanced. (2) Sepsis Is this a current diagnosis for this admission?: Yes Plan: Likely from toxic shock syndrome from retained tampon. Patient did present with leukocytosis. She had tachycardia, fever and tachypnea. She was noted to have a retained tampon on 06/26/18. She was started on clindamycin but she refused antibiotics intially and missed the first few doses. She eventually agreed to getting antibiotics and was restarted on clindamycin and vancomycin. Tachycarida has improved. Lactic acid has also trended down. Her first set of blood cultures grew MRSA and repeat sets (2nd and 3rd) are still growing gram positive cocci despite being on vancomycin at therapeutic levels. She denies chest pain or palpitations. Heart rate has improved down to high 90-100s. Central line was removed due to leakage on 06/29 and a PICC line had to be placed on 06/29 due to poor PIV access. TTE pending. Will consult ID for further recommendations. (3) Bipolar 1 disorder Is this a current diagnosis for this admission?: Yes Plan: Patient is crying that she was not able to sleep last night. Trazodone is held due to prolonged QTc. Continue Prozac. Will give her one dose of ativan for anxiety and will try a dose of ambien tonight. - Time Time Spent with patient: 25-34 minutes
[2018-06-30] MEDS ORDERED: HALOPERIDOL LACTATE INJ 5 MG/1 ML VIAL ONE (18:37)
[2018-06-30] MEDS ORDERED: HALOPERIDOL LACTATE INJ 5 MG/1 ML VIAL IV PRN (19:06)
[2018-06-30] MEDS ORDERED: HALOPERIDOL LACTATE INJ 5 MG/1 ML VIAL IV ONE (19:15)
--- NOTE | 2018-06-30 19:16 | EKG REPORT ---
SEVERITY:- BORDERLINE ECG - SINUS TACHYCARDIA BORDERLINE PROLONGED QT INTERVAL : Confirmed by: Caridad Cox MD 30-Jun-2018 19:15:36
[2018-07-01] MEDS: CLINDAMYCIN 600 MG/D5W RTU 600 MG/50 ML RTUPB IV SCH ×3 (05:28→21:09)
[2018-07-01 05:36] LABS: ALANINE AMINOTRANSFERASE 102 U/L (9-52); ALBUMIN 2.8 g/dL (3.5-5.0); ALKALINE PHOSPHATASE 178 U/L (38-126); ANION GAP 8 (5-19); ASPARTATE AMINO TRANSFERASE 37 U/L (14-36); BILIRUBIN,DIRECT 0.1 mg/dL (0.0-0.4); BILIRUBIN,TOTAL 0.1 mg/dL (0.2-1.3); BLOOD UREA NITROGEN 10 mg/dL (7-20); CALCIUM 8.7 mg/dL (8.4-10.2); CARBON DIOXIDE 28 mmol/L (22-30); CHLORIDE 104 mmol/L (98-107); GLUCOSE 145 mg/dL (75-110); POTASSIUM 4.3 mmol/L (3.6-5.0); SODIUM 139.5 mmol/L (137-145); TOTAL PROTEIN 5.9 g/dL (6.3-8.2)
[2018-07-01 05:54] LABS: VANCOMYCIN,TROUGH 18.5 ug/mL (5.0-20.0)
[2018-07-01] MEDS: VANCOMYCIN HCL 1,250 MG in DEXTROSE 5%-WATER 250 ML IV SCH ×3 (06:39→21:22)
[2018-07-01] MEDS: POTASSI CL 20 MEQ/1/2NS 1L 1000 ML IV PRN ×2 (06:39→15:14)
[2018-07-01] MEDS: FAMOTIDINE INJ/PF 20 MG/2 ML SDV IV SCH ×4 (09:08→21:11)
[2018-07-01] MEDS: SUCRALFATE SUSP 1 GM/10 ML UDCUP PO SCH ×5 (09:08→21:07)
[2018-07-01] MEDS: GABAPENTIN 300 MG CAPSULE PO SCH ×3 (09:09→21:11)
[2018-07-01] MEDS: INSULIN DETEMIR 100 UNIT/ML 3 ML PEN SUBCUT SCH ×2 (11:22→21:10)
[2018-07-01] MEDS: NORMAL SALINE 10 ML SDV (SCHEDULED) IV SCH ×2 (11:23→21:10)
[2018-07-01] MEDS: ENOXAPARIN SODIUM INJ 40 MG/0.4 ML DISP.SYRIN SUBCUT SCH ×2 (11:23→11:34)
[2018-07-01] MEDS: FLUOXETINE HCL 20 MG CAPSULE PO SCH (11:24)
[2018-07-01] MEDS: INSULIN LISPRO 100 UNIT/ML 3 ML VIAL SUBCUT PRN (12:19)
--- NOTE | 2018-07-01 13:15 | PDOC PROGRESS REPORT ---
Subjective Progress Note for:: 07/01/18 Subjective:: Ms. Nguyen is a 23 yr old female with a PMH of type 1 DM, bipolar disorder and history of noncompliance who initially presented with nausea and vomiting. she was noted to be in DKA and was given IV fluids and started on insulin drip. Her DKA resolved, she was successfully transitioned and her diet was advanced. She was found to have sepsis and later found to have a retained tampon in the ICU which was subsequently removed. 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 She continues to refuse VTE prophylaxis including medical and mechanical means. She is tolerating diet well. Denies nausea, vomiting, headache, dizziness or neck stiffness. Her first set of blood cultures grew MRSA and repeat sets (2nd and 3rd) is still growing gram positive cocci despite being on vancomycin at therapeutic levels. She denies chest pain or palpitations. Heart rate has improved down to high 90-100s. Central line was removed due to leakage on 06/29 and a PICC line had to be placed on 06/29 due to poor PIV access. Last night, patient became agitated and restless and was belligerent. She initially wanted to leave AMA and try pulling her IVs out. She was given IV Haldol which calmed her down. She was not cooperative last night to questioning. This morning, patient is not in acute distress and she apologized for her behavior last night. She says she did not know why she acted that way last night. She denies any suicidal or homicidal ideations. No delusions or hallucinations. Reason For Visit: DKA Physical Exam Vital Signs: Temp Pulse Resp BP Pulse Ox 98.2 F 97 17 118/73 99 07/01/18 10:59 07/01/18 10:59 07/01/18 10:59 07/01/18 10:59 07/01/18 10:59 Intake & Output 06/30/18 07/01/18 07/02/18 06:59 06:59 06:59 Intake Total 4408 4673 809 Output Total 400 Balance 4008 4673 809 Weight 182 lb 12.211 oz 173 lb 4.533 oz General appearance: PRESENT: no acute distress, well-developed, well-nourished Head exam: PRESENT: atraumatic, normocephalic Eye exam: PRESENT: conjunctiva pink, EOMI, PERRLA. ABSENT: scleral icterus Ear exam: PRESENT: normal external ear exam Mouth exam: PRESENT: moist, tongue midline Neck exam: ABSENT: carotid bruit, JVD, lymphadenopathy, thyromegaly Respiratory exam: PRESENT: clear to auscultation lam. ABSENT: rales, rhonchi, wheezes Cardiovascular exam: PRESENT: RRR. ABSENT: diastolic murmur, rubs, systolic murmur Pulses: PRESENT: normal dorsalis pedis pul GI/Abdominal exam: PRESENT: normal bowel sounds, soft. ABSENT: distended, guarding, mass, organolmegaly, rebound, tenderness Rectal exam: PRESENT: deferred Neurological exam: PRESENT: alert, awake, oriented to person, oriented to place , oriented to time, oriented to situation, CN II-XII grossly intact. ABSENT: motor sensory deficit Psychiatric exam: PRESENT: flat affect, other - No suicidal or homicidal ideations, denies delusions or hallucinations. Results Laboratory Results: 06/28/18 05:15 07/01/18 05:03 07/01/18 05:03 Sodium 139.5 Potassium 4.3 Chloride 104 Carbon Dioxide 28 Anion Gap 8 BUN 10 Creatinine 0.57 Est GFR ( Amer) > 60 Est GFR (Non-Af Amer) > 60 Glucose 145 H Calcium 8.7 Total Bilirubin 0.1 L AST 37 H ALT 102 H Alkaline Phosphatase 178 H Total Protein 5.9 L Albumin 2.8 L Impressions: Chest X-Ray 06/24/18 19:25 IMPRESSION: Center venous access calf further via right subclavian approach into the IJ and the tip is not seen. Guidance Fluoroscopy 06/29/18 00:00 IMPRESSION: SUCCESSFUL PLACEMENT OF A 5 FR DUAL LUMEN 42 CM PICC IN THE RIGHT BASILIC VEIN. Interventional Vascular Procedure 06/29/18 00:00 IMPRESSION: Please see combined report for performance of procedure and radiologic supervision and interpretation. PICC Line Insertion 06/29/18 00:00 IMPRESSION: SUCCESSFUL PLACEMENT OF A 5 FR DUAL LUMEN 42 CM PICC IN THE RIGHT BASILIC VEIN. Assessment & Plan - Diagnosis (1) DKA (diabetic ketoacidoses) Qualifiers: Diabetes mellitus type: type 1 Diabetes mellitus complication detail: without coma Qualified Code(s): E10.10 - Type 1 diabetes mellitus with ketoacidosis without coma Is this a current diagnosis for this admission?: Yes Plan: Resolved. On Levemir 26 u q12 and sliding scale coverage. She is tolerating a full diabetic diet now. We will resume her home scheduled pre-meal insulin. (2) Sepsis Is this a current diagnosis for this admission?: Yes Plan: Likely from toxic shock syndrome from retained tampon. Patient did present with leukocytosis. She had tachycardia, fever and tachypnea. She was noted to have a retained tampon on 06/26/18. She was started on clindamycin but she refused antibiotics intially and missed the first few doses. She eventually agreed to getting antibiotics and was restarted on clindamycin and vancomycin. Tachycarida has improved. Lactic acid has also trended down. Her first set of blood cultures grew MRSA. Second set grew MRSA 1/2 boittles and 3rd is growing gram positive cocci 1/2 bottles so far despite being on vancomycin at therapeutic levels. She denies chest pain or palpitations. Heart rate has improved down to high 90-100s. Central line was removed due to leakage on 06/29 and a PICC line had to be placed on 06/29 due to poor PIV access. Echo pending. Await input from ID for further recommendations. (3) Bipolar 1 disorder Is this a current diagnosis for this admission?: Yes Plan: Continue Prozac. Psych consulted for further evaluation and recommendation. - Time Time Spent with patient: 15-24 minutes
--- NOTE | 2018-07-01 13:20 | XCELERA REPORT ---
[address] [address] Transthoracic Echocardiogram Report Name: RUMA HUITRON Age: 23 yrs Gender: Female : 1995 Patient Status: Inpatient Patient Location: [address] [address] Study Date: 06/30/2018 03:53 PM Procedure: A two-dimensional transthoracic echocardiogram with color flow and Doppler was performed. Study Quality: Fair. Reason For Study: screen vegetations,persist MRSA bacteremia,hxof IE History: ENDOCARDITIS. Ordering Physician: FRANCES MARTINES Performed By: Irina Tang Interpretation Summary No gross vegetation seen,but recommend MEG. The left ventricle is normal in size. There is normal left ventricular wall thickness. LV EF is > than 60% Left ventricular systolic function is normal. Doppler measurements suggest normal left ventricular diastolic function The left ventricular wall motion is normal. There is no thrombus. The right ventricle is normal in size and function. The right atrium is normal. The left atrial size is normal. There is no evidence of mitral valve prolapse. There is no mitral valve stenosis. There is a mild amount of mitral regurgitation There is no aortic valvular vegetation. There is no aortic valve stenosis There is no LVOT obstruction. No aortic regurgitation is present. There is no tricuspid stenosis. There is a mild to moderate amount of tricuspid regurgitation There is mild pulmonary hypertension by echo RVSP is 42 to 47 mm of Hg , with RA mean of 5 to 10. There is no pulmonic valvular stenosis. There is a trace amount of pulmonic regurgitation The aortic root is normal size. There is no pericardial effusion. No gross vegetation seen,but recommend MEG. MMode/2D Measurements & Calculations RVDd: 2.9 cm LVIDd: 4.6 cm FS: 33.8 % Ao root diam: 2.3 cm IVSd: 0.60 cm LVIDs: 3.0 cm EDV(Teich): 96.7 ml Ao root area: 4.2 cm2 LVPWd: 0.89 cm ESV(Teich): 36.0 ml EF(Teich): 62.7 % Doppler Measurements & Calculations MV E max cece: MV dec slope: Ao V2 max: LV V1 max P.8 cm/sec 116.6 cm/sec 4.5 mmHg MV A max cece: 906.7 cm/sec2 Ao max PG: LV V1 max: 55.2 cm/sec MV dec time: 5.4 mmHg 105.5 cm/sec MV E/A: 2.0 0.12 sec PA V2 max: PI max cece: TR max cece: 99.4 cm/sec 141.8 cm/sec 304.1 cm/sec PA max P.0 mmHg PI max P.0 mmHg TR max PG: PI dec slope: 37.0 mmHg 82.4 cm/sec2 Left Ventricle The left ventricle is normal in size. There is normal left ventricular wall thickness. LV EF is > than 60%. Left ventricular systolic function is normal. Doppler measurements suggest normal left ventricular diastolic function. The left ventricular wall motion is normal. There is no thrombus. Right Ventricle The right ventricle is normal in size and function. Atria The right atrium is normal. The left atrial size is normal. Mitral Valve There is no evidence of mitral valve prolapse. There is no vegetation seen on the mitral valve. There is no mitral valve stenosis. There is a mild amount of mitral regurgitation. Aortic Valve The aortic valve is trileaflet. The aortic valve opens well. There is no aortic valvular vegetation. There is no aortic valve stenosis. There is no LVOT obstruction. No aortic regurgitation is present. Tricuspid Valve There is no tricuspid valve vegetation. There is no tricuspid stenosis. There is a mild to moderate amount of tricuspid regurgitation. There is mild pulmonary hypertension by echo. RVSP is 42 to 47 mm of Hg , with RA mean of 5 to 10. Pulmonic Valve There is no pulmonic valvular stenosis. There is a trace amount of pulmonic regurgitation. Great Vessels The aortic root is normal size. The inferior vena cava appeared normal and decreased > 50% with respiration (RAP 5-10 mmHg). Effusions There is no pericardial effusion. : FRANCES MARTINES > Caridad Cox
--- NOTE | 2018-07-01 17:44 | PSYCHOLOGICAL NOTE ---
Psych Note - Psych Note Date seen by psych provider: 07/01/18 Time seen by psych provider: 08:10 Psych Note: Reason for Consult: behavioral outburst Patient reports she does not remember anything from last night. She then stated she is unsure why she acted the way she did. Medication recommendations per [facility]'s contracted psychiatrist Dr. David LINARES are as follows Zyprexa 2.5 mg twice daily Depakote 250 mg twice daily Neurontin 600 mg twice daily Prozac 20 mg daily Diagnosis 296.80 (F31.9) unspecified bipolar and related disorder per history provided by patient Impression/plan: Patient is recommended for rescind of IVC and is cleared from acute psychiatric services. Patient does not meet IVC criteria per [place] GS 122C. She denies thoughts of harming her self or others. Patient is not demonstrating any behaviours indicating she is responding to internal stimuli ie overall good eye contact, organized and linear thought processes and normal conversational speech. Patient appears to have had a behavioral outburst and while she reports she does not remember, she then stated she was unsure why she acted the way she did. Patient was noted to not make eye contact with clinician when talking abut her behaviors. Patient is recommended to follow up with her outpatient mental health provider, Lory Hassan upon discharge to work on coping skills. Dr. Daly was consulted on the care and management of this patient; attending physician is in agreement with recommendations and disposition.
[2018-07-01] MEDS: INSULIN LISPRO 100 UNIT/ML 3 ML VIAL SUBCUT SCH (17:47)
[2018-07-01] MEDS: ZOLPIDEM TARTRATE 5 MG TABLET PO PRN (23:55)
[2018-07-02] MEDS: CLINDAMYCIN 600 MG/D5W RTU 600 MG/50 ML RTUPB IV SCH ×3 (05:15→21:22)
[2018-07-02] MEDS: VANCOMYCIN HCL 1,250 MG in DEXTROSE 5%-WATER 250 ML IV SCH ×3 (06:19→22:28)
[2018-07-02] MEDS: SUCRALFATE SUSP 1 GM/10 ML UDCUP PO SCH ×4 (07:22→21:04)
[2018-07-02] MEDS: GABAPENTIN 300 MG CAPSULE PO SCH ×3 (07:26→21:23)
[2018-07-02] MEDS: FAMOTIDINE INJ/PF 20 MG/2 ML SDV IV SCH ×4 (07:26→21:23)
[2018-07-02] MEDS: INSULIN LISPRO 100 UNIT/ML 3 ML VIAL SUBCUT SCH ×3 (07:27→17:04)
[2018-07-02] MEDS: FLUOXETINE HCL 20 MG CAPSULE PO SCH (09:36)
[2018-07-02] MEDS: ENOXAPARIN SODIUM INJ 40 MG/0.4 ML DISP.SYRIN SUBCUT SCH (09:37)
[2018-07-02] MEDS: INSULIN DETEMIR 100 UNIT/ML 3 ML PEN SUBCUT SCH ×2 (09:37→21:30)
[2018-07-02] MEDS: NORMAL SALINE 10 ML SDV (SCHEDULED) IV SCH ×2 (09:38→21:22)
--- NOTE | 2018-07-02 13:34 | PDOC PROGRESS REPORT ---
Subjective Progress Note for:: 07/02/18 Subjective:: Ms. Nguyen is a 23 yr old female with a PMH of type 1 DM, bipolar disorder and history of noncompliance who initially presented with nausea and vomiting. she was noted to be in DKA and was given IV fluids and started on insulin drip. Her DKA resolved, she was successfully transitioned and her diet was advanced. She was found to have sepsis and later found to have a retained tampon in the ICU which was subsequently removed. Her first set of blood cultures grew MRSA and repeat sets (2nd and 3rd) grew MRSA (1/2 of each set) despite being on vancomycin at therapeutic levels. She denies chest pain or palpitations. Heart rate has improved down to the 80s. Central line was removed due to leakage on 06/29 and a PICC line had to be placed on 06/29 due to poor PIV access. 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 No acute event overnight. She says she feels much better today but is bothered that she was not able to sleep. She takes trazodone at night but this is being held due to her prolonged QTc. She continues to refuse VTE prophylaxis including medical and mechanical means. No recurrence of emotional outbursts or agitation. She is very pleasant today. This morning, she says she had some vaginal bleeding which is unusual for her. She says her LMP was more than a week ago. Denies vaginal discharge. Pelvic exam was done on bedside with no adnexal tenderness but note of bright red blood without note of any other discharge on examining fingers. She is tolerating diet well. Denies chest pain, nausea, vomiting, headache, dizziness or neck stiffness. Reason For Visit: DKA Physical Exam Vital Signs: Temp Pulse Resp BP Pulse Ox 98.1 F 92 15 109/67 96 07/02/18 11:38 07/02/18 11:38 07/02/18 11:38 07/02/18 11:38 07/02/18 11:38 Intake & Output 07/01/18 07/02/18 07/03/18 06:59 06:59 06:59 Intake Total 4658 5324 474 Balance 4673 5324 474 Weight 173 lb 4.533 oz General appearance: PRESENT: no acute distress, well-developed, well-nourished Head exam: PRESENT: atraumatic, normocephalic Eye exam: PRESENT: conjunctiva pink, EOMI, PERRLA. ABSENT: scleral icterus Ear exam: PRESENT: normal external ear exam Mouth exam: PRESENT: moist, tongue midline Neck exam: ABSENT: carotid bruit, JVD, lymphadenopathy, thyromegaly Respiratory exam: PRESENT: clear to auscultation lam. ABSENT: rales, rhonchi, wheezes Cardiovascular exam: PRESENT: RRR. ABSENT: diastolic murmur, rubs, systolic murmur Pulses: PRESENT: normal dorsalis pedis pul GI/Abdominal exam: PRESENT: normal bowel sounds, soft. ABSENT: distended, guarding, mass, organolmegaly, rebound, tenderness Rectal exam: PRESENT: deferred Extremities exam: PRESENT: full ROM. ABSENT: calf tenderness, clubbing, pedal edema Neurological exam: PRESENT: alert, awake, oriented to person, oriented to place , oriented to time, oriented to situation, CN II-XII grossly intact. ABSENT: motor sensory deficit Psychiatric exam: PRESENT: appropriate affect Results Laboratory Results: 06/28/18 05:15 07/01/18 05:03 06/28/18 13:45 Blood Blood Culture - Final Mrsa (Meth Resis Staph Aureus) Impressions: Chest X-Ray 06/24/18 19:25 IMPRESSION: Center venous access calf further via right subclavian approach into the IJ and the tip is not seen. Guidance Fluoroscopy 06/29/18 00:00 IMPRESSION: SUCCESSFUL PLACEMENT OF A 5 FR DUAL LUMEN 42 CM PICC IN THE RIGHT BASILIC VEIN. Interventional Vascular Procedure 06/29/18 00:00 IMPRESSION: Please see combined report for performance of procedure and radiologic supervision and interpretation. PICC Line Insertion 06/29/18 00:00 IMPRESSION: SUCCESSFUL PLACEMENT OF A 5 FR DUAL LUMEN 42 CM PICC IN THE RIGHT BASILIC VEIN. Assessment & Plan - Diagnosis (1) DKA (diabetic ketoacidoses) Qualifiers: Diabetes mellitus type: type 1 Diabetes mellitus complication detail: without coma Qualified Code(s): E10.10 - Type 1 diabetes mellitus with ketoacidosis without coma Is this a current diagnosis for this admission?: Yes Plan: Resolved. On Levemir 26 u q12 and 10 u of scheduled regular insulin premeals. She is tolerating a full diabetic diet. (2) Sepsis Is this a current diagnosis for this admission?: Yes Plan: Likely from toxic shock syndrome from retained tampon. Patient did present with leukocytosis. She had tachycardia, fever and tachypnea. She was noted to have a retained tampon on 06/26/18. She was started on clindamycin but she refused antibiotics initially and missed the first few doses. She eventually agreed to getting antibiotics and was restarted on clindamycin and vancomycin. Tachycarida has improved. Lactic acid has also trended down. Her first set of blood cultures grew MRSA and repeat sets (2nd and 3rd) grew MRSA as well (1/2 of each set) despite being on vancomycin at therapeutic levels. She denies chest pain or palpitations. Heart rate has improved down to the 80s. Fourth set of blood culture has been negative so far after 24 hrs. Central line was removed due to leakage on 06/29 and a PICC line had to be placed on 06/29 due to poor PIV access. TTE is negative for vegetations. Awaiting input from ID for further recommendations. (3) Bipolar 1 disorder Is this a current diagnosis for this admission?: Yes Plan: Continue Prozac and trazodone. Noted psych recommendations. Will add depakote today. (4) Vaginal bleeding Is this a current diagnosis for this admission?: Yes Plan: Pelvic exam was done on bedside with no adnexal tenderness but note of bright red blood without note of any other discharge on examining fingers. Will order a vaginal US. - Time Time Spent with patient: 25-34 minutes
--- NOTE | 2018-07-02 13:55 | RADIOLOGY REPORT (SQ) ---
EXAM DESCRIPTION: U/S NON-OB PELVIS TV W/O DOP COMPLETED DATE/TIME: 07/02/2018 1:43 pm REASON FOR STUDY: vag bleeding,had retained tampon (removed in ICU) COMPARISON: None. TECHNIQUE: Dynamic and static grayscale images acquired of the pelvis via transvaginal approach and recorded on PACS. Additional selected color Doppler and spectral images recorded. LIMITATIONS: None. FINDINGS: UTERUS: Contour normal. No mass. ENDOMETRIAL STRIPE: No focal or generalized thickening. No masses. CERVIX: No nabothian cysts. RIGHT OVARY AND DOPPLER: Ovary not visualized. LEFT OVARY AND DOPPLER: Ovary not visualized. FREE FLUID: None noted. OTHER: No other significant finding. MEASUREMENTS: UTERUS: 2.2 x 3.0 x 6.1 cm. ENDOMETRIAL STRIPE: 2.7 mm. RIGHT OVARY: Not visualized. LEFT OVARY: Not visualized. IMPRESSION: OVARIES NOT VISUALIZED. OTHERWISE UNREMARKABLE TRANSVAGINAL PELVIC ULTRASOUND. TECHNICAL DOCUMENTATION: JOB ID: [id number] [employer]- All Rights Reserved Rev-12/23 Reading location - IP/workstation name: [email or web address]
[2018-07-02] MEDS: INSULIN LISPRO 100 UNIT/ML 3 ML VIAL SUBCUT PRN ×2 (17:04→21:31)
[2018-07-02] MEDS ORDERED: INSULIN DETEMIR 100 UNIT/ML 3 ML PEN SUBCUT ONE (22:23)
[2018-07-03] MEDS: ZOLPIDEM TARTRATE 5 MG TABLET PO PRN (00:04)
[2018-07-03] MEDS: CLINDAMYCIN 600 MG/D5W RTU 600 MG/50 ML RTUPB IV SCH ×3 (05:16→21:10)
[2018-07-03 05:47] LABS: VANCOMYCIN,TROUGH 17.3 ug/mL (5.0-20.0)
[2018-07-03] MEDS: VANCOMYCIN HCL 1,250 MG in DEXTROSE 5%-WATER 250 ML IV SCH ×3 (06:24→21:10)
[2018-07-03] MEDS ORDERED: DIVALPROEX SODIUM 250 MG TAB.SR.24H PO SCH (10:00)
[2018-07-03] MEDS: INSULIN LISPRO 100 UNIT/ML 3 ML VIAL SUBCUT SCH ×3 (10:11→17:41)
[2018-07-03] MEDS: INSULIN DETEMIR 100 UNIT/ML 3 ML PEN SUBCUT SCH ×2 (10:13→21:10)
[2018-07-03] MEDS: GABAPENTIN 300 MG CAPSULE PO SCH ×3 (10:14→21:10)
[2018-07-03] MEDS: FAMOTIDINE 20 MG TABLET PO SCH ×2 (10:14→21:11)
[2018-07-03] MEDS: FLUOXETINE HCL 20 MG CAPSULE PO SCH (10:14)
[2018-07-03] MEDS: NORMAL SALINE 10 ML SDV (SCHEDULED) IV SCH ×2 (10:15→21:08)
[2018-07-03] MEDS: SUCRALFATE SUSP 1 GM/10 ML UDCUP PO SCH ×4 (10:15→21:11)
[2018-07-03] MEDS: ENOXAPARIN SODIUM INJ 40 MG/0.4 ML DISP.SYRIN SUBCUT SCH (10:15)
[2018-07-03] MEDS: INSULIN LISPRO 100 UNIT/ML 3 ML VIAL SUBCUT PRN ×2 (12:00→21:09)
--- NOTE | 2018-07-03 16:43 | Progress Note ---
Provider Note Provider Note: ID Consult Note Asked to review patient's chart by Dr Pina; case discussed briefly via telephone. Reviewed patient's chart. Pt not seen or examined. Ms. Nguyen is a 23 year old woman with PMH including poorly controlled type I diabetes and noncompliance, MRSA infective endocarditis at age 16, bipolar disorder, and alcohol induced pancreatitis. She presented on 06/24/18 to [facility] ED with persistent N&V and generalized body aches, was found to be hypothermic and tachycardic, tachypneic. No murmur was appreciated on exam. She had a mild rash in the armpits and right pubic area on initial exam. Pt has had no other remarkable findings noted on her exam. Her labs were notable for leukocytosis, mild elevation in plt count, marked hyperglycemia and evidence of metabolic acidosis, elevated lactic acid level, elevated creatinine relative to baseline. Pt developed a fever up to 102 F on 06/27, and blood cultures were drawn. A retained tampon was found and removed. BCx on 06/27/18 were positive for MRSA in 3/4 bottles. Urine culture also grew MRSA 30k-40k CFU/mL with no pyuria. Repeat blood cultures on 06/28 showed continued growth of MRSA in one blood culture bottle, as did repeat blood cultures from 06/29. Repeat blood cultures from 07/01 have shown no growth x 48h. TTE has shown no vegetations. Pt has received IV vancomycin and clindamycin from 06/27 to present. During the patient 's hospital stay she has intermittently refused therapeutic interventions and, most recently, is insistent upon hospital discharge. Impression/Recommendations MRSA bacteremia - Some features of the patient's case suggest that her bacteremia is uncomplicated (removed source if indeed it was related to retained tampon, relatively quickly had clearance of bacteremia and defervescence within 72-96h) . However, pt has had one prior episode of MRSA infective endocarditis that she reports; history of IE places the patient at greater risk for developing infective endocarditis with current bacteremic episode. I am also not confident that we know the true timeline for onset of bacteremia. While fever developed as an inpatient, she also reported constitutional symptoms at presentation and met SIRS criteria then (DKA vs sepsis). - In light of the equivocal features of this case, the most prudent approach appears to be treating the patient for 4 weeks from date of negative blood cultures (anticipated end date 07/29) with IV vancomycin, dosed with assistance of a clinical pharmacist to achieve goal troughs of 15-20. Troughs should be checked along with CBC and CMP at least once weekly while on IV vancomycin. Chester Knight MD [facility] Infectious Diseases pager [phone]
[2018-07-03] MEDS: TRAZODONE HCL 50 MG TABLET PO SCH (21:11)
--- NOTE | 2018-07-03 21:59 | PDOC DISCHARGE SUMMARY ---
General - Admit/Disc Date/PCP Admission Date/Primary Care Provider: 06/24/18 22:11 Discharge Date: 07/03/18 - Discharge Diagnosis (1) DKA (diabetic ketoacidoses) Is this a current diagnosis for this admission?: Yes (2) Sepsis Is this a current diagnosis for this admission?: Yes (3) Toxic shock syndrome Is this a current diagnosis for this admission?: Yes (4) Bipolar 1 disorder Is this a current diagnosis for this admission?: Yes (5) history of infective endocarditis Is this a current diagnosis for this admission?: Yes (6) MRSA bacteremia Is this a current diagnosis for this admission?: Yes - Additional Information Resuscitation Status: Full Code Prescriptions: Divalproex Sodium [Depakote ER 250 mg Tablet] 250 mg PO DAILY #30 tab.sr.24h Home Medications: Fluoxetine HCl [Prozac 20 mg Capsule] 20 mg PO DAILY 06/26/18 Gabapentin [Neurontin 300 mg Capsule] 300 mg PO QAM 06/26/18 Gabapentin [Neurontin 300 mg Capsule] 300 mg PO WLUNCH 06/26/18 Gabapentin [Neurontin 300 mg Capsule] 600 mg PO QHS 06/26/18 Insulin Detemir [Levemir Insulin 100 units/mL] 28 units SQ BID 06/26/18 Insulin Lispro [Humalog Insulin (Lispro) 100 unit/mL] 0 units SQ .SLIDING SCALE 06/26/18 Insulin Lispro [Humalog Insulin (Lispro) 100 unit/mL] 10 units SQ TID 06/26/18 Pantoprazole Sodium [Protonix] 40 mg PO DAILY 06/26/18 Trazodone HCl [Desyrel 50 mg Tablet] 50 mg PO QHS 06/26/18 Divalproex Sodium [Depakote ER 250 mg Tablet] 250 mg PO DAILY #30 tab.sr.24h Vancomycin HCl [Vancocin Inj 1000 mg Vial] 1,250 mg IV Q8 22 Days #0 vial History of Present Illness History of Present Illness: Admitting hospitalist's H&P: RUMA HUITRON is a 23 year old female with medical history remarkable for diabetes mellitus type 1, multiple episodes of DKA, noncompliant with medications, bipolar disorder, alcohol abuse, alcohol induced pancreatitis. Patient at this point is critically ill and very poor historian. As per records patient has been pick From home by EMS for 36 hours of feeling sick with persistent nausea with nonbloody vomiting, generalized body aches, Upon arrival to the emergency department patient is tachycardic to the 150s, hypothermic with a temperature of 96.2 and a bear hugger was started, lethargic and mildly confused with a respiratory of 29. Patient was a difficult IV access and the ED attending initially tried to place a right IJ unsuccessfully, and placing a right femoral line. Laboratory consistent with DKA, initial blood sugar 843 with a bicarbonate 4.6, pH 6.9, white blood cells 24.5, patient has received a total of 4 L IV fluids, 50 mEq of IV bicarbonate followed by bicarbonate drip. Started insulin infusion. Unfortunately the patient had to be restrained as her management was challenging in the emergency department, was trying to get off the bed and pull the central line. Urinalysis negative for infection with 80 ketones, chest x-ray negative for infection. She will be admitted to the ICU. Hospital Course Hospital Course: Ms. Huitron is a 23 yr old female with a PMH of type 1 DM, bipolar disorder and history of noncompliance who initially presented with nausea and vomiting. she was noted to be in DKA and was given IV fluids and started on insulin drip. Her DKA resolved, she was successfully transitioned and her diet was advanced. She was found to have severe sepsis and later found to have a retained tampon in the ICU on 06/26/18 which was subsequently removed. Her DKA was likely from sepsis. She was initially started on Clindamycin and Vancomycin for possible tampon-related toxic shock syndrome but she refused antibiotics initially and missed the first few doses. Her first set of blood cultures grew MRSA and repeat sets (2nd and 3rd) grew MRSA (1/2 of each set) despite being on vancomycin at therapeutic levels. She denies chest pain or palpitations. Heart rate has improved down to the 80s. Central line was removed due to leakage on 06/29 and a PICC line had to be placed on 06/29 due to poor PIV access. 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 Patient had initial persistent MRSA bacteremia. She denies IV drug abuse. UDS did came back negative. TTE was pursued which came back negative for vegetations but due to history of MRSA IE, a MEG was strongly recommended. Arrangements were initially made to have this done at [facility] but patient refused to pursue MEG. Infectious Disease was also consulted. As patient is not amenable to MEG, will set-up home antibiotics with vancomycin with last day of antibiotics on . Physical Exam Vital Signs: Temp Pulse Resp BP Pulse Ox 98.3 F 87 18 102/59 L 98 07/03/18 11:32 07/03/18 11:32 07/03/18 11:32 07/03/18 11:32 07/03/18 11:32 Intake & Output 07/02/18 07/03/18 07/04/18 06:59 06:59 06:59 Intake Total 5324 2583 250 Balance 5324 2583 250 General appearance: PRESENT: no acute distress, well-developed, well-nourished Head exam: PRESENT: atraumatic, normocephalic Eye exam: PRESENT: conjunctiva pink, EOMI, PERRLA. ABSENT: scleral icterus Ear exam: PRESENT: normal external ear exam Mouth exam: PRESENT: moist, tongue midline Neck exam: ABSENT: carotid bruit, JVD, lymphadenopathy, thyromegaly Respiratory exam: PRESENT: clear to auscultation lam. ABSENT: rales, rhonchi, wheezes Pulses: PRESENT: normal dorsalis pedis pul GI/Abdominal exam: PRESENT: normal bowel sounds, soft. ABSENT: distended, guarding, mass, organolmegaly, rebound, tenderness Rectal exam: PRESENT: deferred Neurological exam: PRESENT: alert, awake, oriented to person, oriented to place , oriented to time, oriented to situation, CN II-XII grossly intact. ABSENT: motor sensory deficit Results Laboratory Results: 06/28/18 05:15 07/03/18 05:08 07/03/18 05:08 Creatinine 0.63 Est GFR ( Amer) > 60 Est GFR (Non-Af Amer) > 60 06/28/18 11:54 Blood Blood Culture - Final NO GROWTH IN 5 DAYS 06/29/18 10:59 Blood Blood Culture - Final Mrsa (Meth Resis Staph Aureus) Staphylococcus Epidermidis 06/28/18 13:45 Blood Blood Culture - Final Mrsa (Meth Resis Staph Aureus) Impressions: Chest X-Ray 06/24/18 19:25 IMPRESSION: Center venous access calf further via right subclavian approach into the IJ and the tip is not seen. Guidance Fluoroscopy 06/29/18 00:00 IMPRESSION: SUCCESSFUL PLACEMENT OF A 5 FR DUAL LUMEN 42 CM PICC IN THE RIGHT BASILIC VEIN. Interventional Vascular Procedure 06/29/18 00:00 IMPRESSION: Please see combined report for performance of procedure and radiologic supervision and interpretation. PICC Line Insertion 06/29/18 00:00 IMPRESSION: SUCCESSFUL PLACEMENT OF A 5 FR DUAL LUMEN 42 CM PICC IN THE RIGHT BASILIC VEIN. Transvaginal US 07/02/18 11:56 IMPRESSION: OVARIES NOT VISUALIZED. OTHERWISE UNREMARKABLE TRANSVAGINAL PELVIC ULTRASOUND. Qualifiers - * PATIENT BEING DISCHARGED WITH ANY OF THE FOLLOWING DIAGNOSIS: No
[2018-07-03 22:43] VITALS: BP 92/57
== END 2018-07-03 23:30 | disposition home health service (06) | DRG 871 ==
LOC: ER 18:20 → EH 22:11 → ICU 22:57 → 3N 06-27 21:37
PROVIDERS: ADMIT Internal Medicine; ATTEND Internal Medicine
PROC: 06HM33Z Insertion of Infusion Device into Right Femoral Vein, Percutaneous Approach (ICD-10-PCS; 2018-06-24)
PROC: 30233N1 Transfusion of Nonautologous Red Blood Cells into Peripheral Vein, Percutaneous Approach (ICD-10-PCS; 2018-06-25)
PROC: 0UCG7ZZ Extirpation of Matter from Vagina, Via Natural or Artificial Opening (ICD-10-PCS; principal; 2018-06-26)
PROC: 02HV33Z Insertion of Infusion Device into Superior Vena Cava, Percutaneous Approach (ICD-10-PCS; 2018-06-29)
PROC: B518ZZA Fluoroscopy of Superior Vena Cava, Guidance (ICD-10-PCS; 2018-06-29)
DX: A41.9 Sepsis, unspecified organism (principal); E10.10 Type 1 diabetes mellitus with ketoacidosis without coma; A48.3 Toxic shock syndrome; R65.20 Severe sepsis without septic shock; T19.2XXA Foreign body in vulva and vagina, initial encounter; X58.XXXA Exposure to other specified factors, initial encounter; Z86.14 Personal history of Methicillin resistant Staphylococcus aureus infection; B95.62 Methicillin resistant Staphylococcus aureus infection as the cause of diseases classified elsewhere; E87.5 Hyperkalemia; E86.0 Dehydration; E86.1 Hypovolemia; I87.2 Venous insufficiency (chronic) (peripheral); I45.81 Long QT syndrome; D64.9 Anemia, unspecified; F31.9 Bipolar disorder, unspecified; Z78.1 Physical restraint status; Z91.14 Patient's other noncompliance with medication regimen; Z79.4 Long term (current) use of insulin; Z79.899 Other long term (current) drug therapy; Z53.29 Procedure and treatment not carried out because of patient's decision for other reasons; Z88.0 Allergy status to penicillin; Z88.8 Allergy status to other drugs, medicaments and biological substances; Z60.2 Problems related to living alone; Z82.49 Family history of ischemic heart disease and other diseases of the circulatory system
CPT/HCPCS: 36415; 36430; 36569; 51702; 71045; 76830; 76937; 77001; 80048; 80053; 80076; 80202; 80307; 81001; 81025; 82565; 82803; 82947; 82962; 83036; 83605; 83690; 83735; 84132; 85025; 85027; 86850; 86900; 86901; 86920; 87040; 87077; 87086; 87088; 87186; 93005; 93010; 93306; 96360; 99291; 99292; C1751; J1630; J1642; J1644; J1650; J1815; J2060; J2250; J2270; J2765; J3370; J3475; J3480; J3490; J7030; J7060; J7070; J7120; P9016; S0028; S0164